=== PATIENT | female | born 1965 | race Caucasian/White ===

== ENCOUNTER 2021-10-24 10:30 | Outpatient (RCR) | payer OTHER, SELFPAY ==
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
--- NOTE | 2021-10-02 14:42 | PC.NURSE ---
case opened in treatment team
--- NOTE | 2021-10-03 14:04 | HO.PHPPROGNO ---
Subjective Subjective Date of Service: 10/03/21 Reason For Visit: Bipolar I, Depression, Anxiety Guardianship: No Medical Problems Affecting Mental Status: No Interim History: Gerda reports difficulty sleeping, some dysphoric mood. Requests medication lorazepam be changed to clonazepam. Reports loose stools this morning, upset GI. Medication Compliance: Intermittent (Taking only Depakote dose at night, not taking am dose.) Side effects from medications: Yes (unsure as to GI sx from GI virus or meds) Attending Groups: Yes Review of Systems Acute medical concerns: Yes NSTEMI reported May 2021, still awaiting follow-up visit with [employer]. Medical Review of Systems: unchanged Mental Status Exam Mental Status Exam Narrative: Well-developed, well-nourished female, in NAD. Appears stated age. Appropriately dressed for age and season. Alert and oriented x4, fully cooperative with interview. Presents with labile, anxious affect, irritable at times. Patient Appearance: Well Grooomed and Appropriate Patient Orientation: Person, Place, Time and Situation Level of Consciousness: Awake, Appropriate and Alert Patient Behavior: Appropriate, Cooperative, Anxious and Good Eye Contact Mood Description: Appropriate, Depressed and Anxious Affect Description: Appropriate, Depressed, Anxious and Labile Patient Cognition Impaired: No Ability to Follow Directions: Excellent Speech Pattern: Clear, Appropriate, Spontaneous Speech, Coherent and Rapid (rapid at times) Memory Description: Intact Hallucinations: None Delusions: Not Present Thought Process: Intact, Rumination, Goal Oriented and Linear Thought Content: positive for Intact, positive for Goal Oriented, positive for Linear and positive for Perseveration Depressive Symptoms: Increased Anxiety, Increased Irritability, Difficulty Sleeping, Crying Spells, Loss of Int. in Activity, Feelings of Worthlessness, Hopelessness, Increased Fatigue, Thoughts of /Suicide (recent passive, no intent or plan. Denies today), Unexplained Stomach Pain, Low Self Esteem and Difficulty Concentrating Judgement: Fair Assessment & Plan Assessment & Plan (1) Bipolar disorder current episode depressed: Qualifiers: Current episode severity: unspecified Qualified Code(s): F31.30 - Bipolar disorder, current episode depressed, mild or moderate severity, unspecified Status: Acute Code(s): F31.30 - Bipolar disorder, current episode depressed, mild or moderate severity, unspecified Assessment and Plan: Client reports GI upset, loose stools this a.m.. States she believes she could have a GI bug/virus, is not sure. Discussed Depakote medication, including side effects. This blog writer recommended she switch to ER form, in order to help improve any GI side effects. She is willing to do this. She has also not been taking the a.m. dose, but is willing to increase ER dose to 500 mg daily rather than 250. (2) EMBER (generalized anxiety disorder): Status: Acute Code(s): F41.1 - Generalized anxiety disorder Assessment and Plan: Client reports that she is experiencing insomnia, which in turn is causing increased anxiety. She is requesting a return to Klonopin 1 mg at bedtime rather than Ativan. We did discuss rationale for recent change to Ativan, she then stated ?at this point, I need to sleep ?. She stated that she is still experiencing some forgetfulness even with the switch to Ativan, and that she would rather have the Klonopin so that she can sleep, as the insomnia is also causing forgetfulness. We also discussed client's diagnosis in May of NSTEMI at [facility]. She reports that her [employer] is in [facility], and that a referral was sent to [facility] so that she could have further testing completed. She states that [facility] has still not scheduled an appointment, and last told her it would need to be perhaps in October. She states that she is fed up, and that she is not experiencing any type of shortness of breath, no difficulty walking. She states that she is not going to wait any longer, but just ?let it go ?. She also believes that it could possibly have been caused by COVID exposure, although [employer] has told her they do not believe that would cause an NSTEMI. Client reports that she needs to pay a co-pay for medications, even for a limited supply. Discussed providing 30 day supply of medications at this point, in order to prevent excessive co-pay at pharmacy. She is also concerned about the mmultiple medical bills she has received since going to [facility] for STEMI this past summer. She is very concerned, and states she has received bills for thousands of dollars. She is experiencing difficulty with finances at this point, and this is causing increased anxiety. Assessment and Plan: 1. D/C lorazepam and depakote. 2. Start klonopin 1mg at bedtime as needed. (script for 30 day supply sent to pharmacy). 3. Start depakote ER 500mg daily. (script for 30 day supply sent to pharmacy). 4. Client to see Dr. Jackson tomorrow. 5. Continue following as per protocol. Reason for contiued partial hosp. stay Substantial Risk for: inability to function, rapid decompensation and med/psych decompensation Certification I certify that partial hospital treatment is medically necessary due to the symptoms and problems resulting from the patient's mental illness and the failure to treat the patient at the partial hospital level of care would likely result in the patient requiring inpatient psychiatric care which could not be prevented at a less intensive level of care. I spent minutes with the patient and/or on the patient floor today, greater than?50% of which was spent counseling/coordinating care. Discharge Plan Discharge Attending provider: Kd Chilel Medications: New divalproex [Depakote ER] 500 mg tablet extended release 24 hr 500 mg PO DAILY Qty: 30 RF: 0 clonazepam [Klonopin] 1 mg tablet 1 mg PO BEDTIME PRN (Reason: anxiety, sleep) Qty: 30 RF: 0 Telehealth Telehealth Location of provider rendering services: practice address Location of patient: address on file Patient Identification confirmed using: Name, : Yes Telehealth method: video Patient verbally consented to treatment: Yes Patient verbally consented to billing insurance company: Yes Patient informed of any privacy concerns related to visit: Yes Time spent with patient (mins): 15
--- NOTE | 2021-10-03 15:11 | PC.ADMIT ---
Admission Note: 56 year old woman admit to [facility] 10/02/2021 with dx BiPolar 1, Depression and Anxiety. Patient self referred after discussion with Dr Jackson. Patient reports increased depression, increased anxiety, : very stressed Reports a lot of things have happened since Covid. Patient repoerts she has increased anger and yells and screams at family. Patient denies she would hurt anyone. Patient denies SI. Medical issues include Type 2 diabetes and fibromyalgia. Patient quit smoking 30 days ago. Patient reports difficulty sleeping. Reports she wants to back on [facility] aware and will discuss with Dr Jackson.Medications reconciled with patient, pharmacy and medical record. Patient verbalizes understanding of medications.
--- NOTE | 2021-10-04 16:33 | P.PNPSP_ITS ---
Subjective Subjective Date of Service: 10/04/21 Reason For Visit: Bipolar I, Depression, Anxiety Medical Problems Affecting Mental Status: Yes Interim History: gi sx patient restarted back on Depakote 500 mg has only into been intermittently compliant. Has not had cardiac catheterization for gated MRI. Feeling somewhat more stable Medication Compliance: Intermittent Side effects from medications: Yes Mental Status Exam Mental Status Exam Narrative: Well-developed, well-nourished female, in NAD. No involuntary mo vements noted, motor activity calm, posture within normal limits. Ambulation not observed. Patient Orientation: Person, Place, Time and Situation Level of Consciousness: Awake, Appropriate and Alert Patient Behavior: Appropriate, Cooperative and Good Eye Contact Mood Description: Appropriate (reports improved mood, more stable. ) and Apprehensive Affect Description: Appropriate and Depressed Patient Cognition Impaired: No Ability to Follow Directions: Excellent Speech Pattern: Clear, Appropriate, Spontaneous Speech and Coherent Memory Description: Intact Hallucinations: None Delusions: Not Present Thought Process: Intact, Goal Oriented and Linear Thought Content: positive for Intact, positive for Goal Oriented and positive for Linear Depressive Symptoms: Loss of Int. in Activity, Feelings of Worthlessness, Hopelessness and Difficulty Concentrating Judgement: Fair Assessment & Plan Assessment & Plan (1) Bipolar disorder current episode depressed: Qualifiers: Current episode severity: unspecified Qualified Code(s): F31.30 - Bipolar disorder, current episode depressed, mild or moderate severity, unspecified Status: Acute Code(s): F31.30 - Bipolar disorder, current episode depressed, mild or moderate severity, unspecified (2) EMBER (generalized anxiety disorder): Status: Acute Code(s): F41.1 - Generalized anxiety disorder Assessment and Plan: Rib urged continued treatment with Depakote patient has not been helped to c oulee by gabapentin for irritability mood instability monitor use of alcohol and clonazepam Patient educated on: diagnosis and medication risk/benefits Reason for contiued partial hosp. stay Substantial Risk for: rapid decompensation Certification I certify that partial hospital treatment is medically necessary due to the symptoms and problems resulting from the patient's mental illness and the failure to treat the patient at the partial hospital level of care would likely result in the patient requiring inpatient psychiatric care which could not be prevented at a less intensive level of care. I spent minutes with the patient and/or on the patient floor today, greater than?50% of which was spent counseling/coordinating care. Discharge Plan Discharge Attending provider: Kd Chilel Medications: New divalproex [Depakote ER] 500 mg tablet extended release 24 hr 500 mg PO DAILY Qty: 30 RF: 0 clonazepam [Klonopin] 1 mg tablet 1 mg PO BEDTIME PRN (Reason: anxiety, sleep) Qty: 30 RF: 0 No Action atenolol 50 mg tablet 50 mg PO DAILY RF: 0
--- NOTE | 2021-10-09 11:09 | HO.PHPPROGNO ---
Subjective Subjective Date of Service: 10/09/21 Reason For Visit: Bipolar I, Depression, Anxiety Guardianship: No Medical Problems Affecting Mental Status: No Interim History: Client reports feeling depressed today, but functioning . States that she stop taking atenolol, because it was causing her to feel dizzy and lightheaded, as well as lowering her blood pressure and pulse too much. She reports side effects have lifted since she stopped taking it. Continues utilizing Depakote ER 500 and Klonopin 1 mg at bedtime, with good effect. Reports that she feels she is becoming more active, walked over 3 miles yesterday, states that overall she feels she is doing better . Medication Compliance: Yes Side effects from medications: Yes (dizzy/lightheaded, decreased BP, p on atenolol 50mg , stopped,s/e res ) Attending Groups: Yes Review of Systems Acute medical concerns: No Medical Review of Systems: unchanged Review of Systems Review of Systems Yes all other systems are reviewed and are negative Constitutional: Reports no additional constitutional complaints Eyes: Reports no additional eye complaints Reports Normal hearing present Cardiovascular: Reports no additional cardiovascular complaints Respiratory: Reports no additional respiratory complaints Gastrointestinal: Reports no additional gastrointestinal complaints Genitourinary: Reports no additional female genitourinary complaints Musculoskeletal: Reports no additional musculoskeletal complaints Comments: reports feeling leg soreness on day one of depakote increased dose, quickly resolved. Skin/Breast: Reports as per HPI Reports Normal hearing present Comments: dizziness and lightheadedness resolved once stopped atenolol. Psychiatric: Reports no additional psychiatric complaints Endocrine: Reports no additional endocrine complaints Hematologic/Lymphatic: Reports no additional hematologic/lymphatic complaints Allergic/Immunologic: Reports no additional allergic/immunologic complaints Mental Status Exam Mental Status Exam Narrative: Well-developed, well-nourished female, in NAD. No involuntary movements noted, motor activity calm, posture within normal limits. Ambulation not observed. dressed for age and season. Alert and oriented x4. Mood: depressed. Affect: stable, no restriction or lability noted. Patient Appearance: Well Grooomed and Appropriate Patient Orientation: Person, Place, Time and Situation Level of Consciousness: Awake, Appropriate and Alert Patient Behavior: Appropriate, Cooperative and Good Eye Contact Mood Description: Appropriate and Depressed Affect Description: Appropriate and Depressed Patient Cognition Impaired: No Ability to Follow Directions: Excellent Speech Pattern: Clear, Appropriate, Spontaneous Speech and Coherent Memory Description: Intact Hallucinations: None Delusions: Not Present Thought Process: Intact, Goal Oriented and Linear Thought Content: positive for Intact, positive for Goal Oriented and positive for Linear Depressive Symptoms: Increased Irritability, Difficulty Sleeping, Loss of Int. in Activity, Feelings of Worthlessness, Hopelessness, Increased Fatigue, Thoughts of /Suicide (recent passive, no intent or plan. ), Low Self Esteem and Difficulty Concentrating Judgement: Fair Assessment & Plan Assessment & Plan (1) Bipolar disorder current episode depressed: Qualifiers: Current episode severity: unspecified Qualified Code(s): F31.30 - Bipolar disorder, current episode depressed, mild or moderate severity, unspecified Status: Acute Code(s): F31.30 - Bipolar disorder, current episode depressed, mild or moderate severity, unspecified Assessment and Plan: Client reports depressed mood, although she reports ?I am functioning ?. Reports she has stopped taking atenolol on her own, because it was making her feel dizzy, lightheaded, and her blood pressure and pulse go too low. States that when she stopped taking the medication these side effects resolved. Continues with the Depakote ER 500 mg nightly along with Klonopin 1 mg. Reports good sleep, good appetite. States that 1st day on Depakote she felt her legs were achy in week, but that quickly resolved. States that she walked over 3 miles yesterday on a hike, and feels overall she is doing better. No active thoughts of harm to self or others reported, no safety concern at this time. Labs ordered, including Depakote level, CBC, liver function panel. Client request slip be faxed to [facility] in [place]. (2) EMBER (generalized anxiety disorder): Status: Acute Code(s): F41.1 - Generalized anxiety disorder Assessment and Plan: Continues with Klonopin 1 mg, with positive affect. Assessment and Plan: 1. Continue with Depakote ER 500 mg at bedtime, and Klonopin 1 mg p.r.n. at bedtime. 2. Obtain labs, including Depakote level, liver profile, CBC. 3. Follow-up as per protocol. Patient educated on: diagnosis, medication risk/benefits and therapeutic strategies Informed Consent: understands Reason for contiued partial hosp. stay Substantial Risk for: harm to self, inability to function and med/psych decompensation Certification I certify that partial hospital treatment is medically necessary due to the symptoms and problems resulting from the patient's mental illness and the failure to treat the patient at the partial hospital level of care would likely result in the patient requiring inpatient psychiatric care which could not be prevented at a less intensive level of care. I spent minutes with the patient and/or on the patient floor today, greater than?50% of which was spent counseling/coordinating care. Discharge Plan Discharge Attending provider: Kd Chilel Medications: New divalproex [Depakote ER] 500 mg tablet extended release 24 hr 500 mg PO DAILY Qty: 30 RF: 0 clonazepam [Klonopin] 1 mg tablet 1 mg PO BEDTIME PRN (Reason: anxiety, sleep) Qty: 30 RF: 0 No Action atenolol 50 mg tablet 50 mg PO DAILY RF: 0 Telehealth Telehealth Location of provider rendering services: practice address Location of patient: address on file Patient Identification confirmed using: Name, : Yes Telehealth method: video Patient verbally consented to treatment: Yes Patient verbally consented to billing insurance company: Yes Patient informed of any privacy concerns related to visit: Yes Time spent with patient (mins): 15
--- NOTE | 2021-10-16 17:04 | HO.PHPPROGNO ---
Subjective Subjective Date of Service: 10/16/21 Reason For Visit: Bipolar I, Depression, Anxiety Guardianship: No Medical Problems Affecting Mental Status: No Interim History: Gerda reports that her mood is better today than it has been all of last week. She reports that last week she was agitated, and had a lot of things come out that were suppressed . She states that she slept well over the weekend, late on both days, as she was exhausted. She reports that she feels she is making progress in PHP. Client did ask about utilizing small amount of Klonopin 0.5 in order to help when she feels overwhelmed with anxiety and had station. Reports that she feels her memory is being affected by the Depakote, although she has no more GI upset. She states that she thinks her memory is being affected because she has felt a little scattered, forgetful at times. We discussed possibility that this could also be related to levels of anxiety and agitation. She was agreeable to remaining on Depakote 500 mg ER at this time, as overall she feels it is helpful. Medication Compliance: Yes Side effects from medications: Yes (forgetful, scattered at times) Attending Groups: Yes Review of Systems Acute medical concerns: No Medical Review of Systems: unchanged Review of Systems Review of Systems Yes all other systems are reviewed and are negative Constitutional: Reports no additional constitutional complaints Mental Status Exam Mental Status Exam Narrative: Well-developed, well-nourished female, in NAD. No involuntary movements noted, motor activity calm, posture within normal limits. Ambulation not observed. Patient Appearance: Well Grooomed and Appropriate Patient Orientation: Person, Place, Time and Situation Level of Consciousness: Awake, Appropriate and Alert Patient Behavior: Appropriate, Cooperative and Good Eye Contact Mood Description: Calm and Appropriate (reports improved mood, more stable. ) Affect Description: Appropriate and Depressed Patient Cognition Impaired: No Ability to Follow Directions: Excellent Speech Pattern: Clear, Appropriate, Spontaneous Speech and Coherent Memory Description: Intact Hallucinations: None Delusions: Not Present Thought Process: Intact, Goal Oriented and Linear Thought Content: positive for Intact, positive for Goal Oriented and positive for Linear Depressive Symptoms: Loss of Int. in Activity, Feelings of Worthlessness, Hopelessness and Difficulty Concentrating Judgement: Fair Assessment & Plan Assessment & Plan (1) Bipolar disorder current episode depressed: Qualifiers: Current episode severity: unspecified Qualified Code(s): F31.30 - Bipolar disorder, current episode depressed, mild or moderate severity, unspecified Status: Acute Code(s): F31.30 - Bipolar disorder, current episode depressed, mild or moderate severity, unspecified Assessment and Plan: Client reports mood more stable today, denies mood lability or constriction. Appears more stable during encounter. Reports medications appear to be working well, although she is concerned that the Depakote may be affecting her memory. Medication education and discussion ensued, she is willing to remain on Depakote until she sees her outpatient psych provider. (2) EMBER (generalized anxiety disorder): Status: Acute Code(s): F41.1 - Generalized anxiety disorder Assessment and Plan: Client reports she feels less anxiety today, although last week was difficult for her. Request that she be allowed to take 1/2 Klonopin, for dose of 0.5 mg, as needed occasionally when she feels overly stressed and anxious. This was discussed, as she states she has done this in the past, with positive affect. No new script needed at this time. (3) Alcohol abuse: Status: Acute Code(s): F10.10 - Alcohol abuse, uncomplicated Assessment and Plan: Client has been discussing her relationship with alcohol in [facility], and effects alcohol on mood. Assessment and Plan: 1. Client to utilize 0.5 Klonopin once daily p.r.n. as needed for increased anxiety and agitation. 2. No further medication changes at this time, client does not require any refills at this time. Patient educated on: diagnosis, medication risk/benefits, substance abuse and therapeutic strategies Informed Consent: understands Reason for contiued partial hosp. stay Substantial Risk for: inability to function and med/psych decompensation Certification I certify that partial hospital treatment is medically necessary due to the symptoms and problems resulting from the patient's mental illness and the failure to treat the patient at the partial hospital level of care would likely result in the patient requiring inpatient psychiatric care which could not be prevented at a less intensive level of care. I spent minutes with the patient and/or on the patient floor today, greater than?50% of which was spent counseling/coordinating care. Discharge Plan Discharge Attending provider: Kd Chilel Medications: New divalproex [Depakote ER] 500 mg tablet extended release 24 hr 500 mg PO DAILY Qty: 30 RF: 0 clonazepam [Klonopin] 1 mg tablet 1 mg PO BEDTIME PRN (Reason: anxiety, sleep) Qty: 30 RF: 0 No Action atenolol 50 mg tablet 50 mg PO DAILY RF: 0 Telehealth Telehealth Location of provider rendering services: practice address Location of patient: address on file Patient Identification confirmed using: Name, : Yes Telehealth method: video Patient verbally consented to treatment: Yes Patient verbally consented to billing insurance company: Yes Patient informed of any privacy concerns related to visit: Yes Time spent with patient (mins): 20
--- NOTE | 2021-10-24 14:03 | PC.NURSE ---
I called and LM for pt asking her to pls call to review discharge info.
--- NOTE | 2021-10-24 14:57 | PC.NURSE ---
Patient discharged from the program today. Reviewed patient medications with patient. Patient reports Dr Jackson put her on Atenolol and she not longer takes this medication as she stated she felt lightheaded while taking it. Patient reports wanting to take clonazepam 1 tab at HS with an additional 1/2 mg if needed daily however she stated she has not taken the dose during the day. Patient reports taking medications as prescribed. Feels ok and good regarding D/C and stated she felt the program benefited her a lot. Denied any safety issues. Jeannette to call patient to review additional d/c. Patient has an appointment with Dr Jackson on 11/02/2021 at 2:30 PM per Ellyn Celis as patient just called her.
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
--- NOTE | 2021-10-27 21:26 | HO.PHPPROGNO ---
Subjective Subjective Date of Service: 10/24/21 Reason For Visit: Bipolar I, Depression, Anxiety Interim History: I evaluated the pt this morning and upon interview she reports I stopped the atenolol, says she took this for anxiety, but felt lightheaded. Has been off it one week and denies adverse effects, I feel fine. Says she is still interested in obtaining klonopin 0.5 mg QD PRN for anxiety, which she does not anticipate needing but says she has discussed this with her OP psychiatrist. Says her sleep has been good. Initially on depakote she felt she was having memory issues but now says its not as bad now that im acclimated on it and i'm functioning?a lot better mentally. Denies GI SE, as she reports the ER formulation of depakote has helped with this SE. She denies SI/SIB/HI upon inquiry and says she feels stable on her med regimen. Medication Compliance: Yes Side effects from medications: No Attending Groups: Yes Review of Systems Acute medical concerns: No Medical Review of Systems: unchanged Mental Status Exam Mental Status Exam Narrative: Well-developed, well-nourished female, in NAD. No involuntary movements noted, motor activity calm, posture within normal limits.? Ambulation not observed. ? Patient Appearance:?Well Groomed and Appropriate Patient Orientation:?Person, Place, Time and Situation Level of Consciousness:?Awake, Appropriate and Alert Patient Behavior:?Appropriate, Cooperative and Good Eye Contact Mood Description:?Calm and Appropriate (reports improved mood, more stable. ) Affect Description:?Appropriate and Depressed Patient Cognition Impaired:?No Ability to Follow Directions:?Excellent Speech Pattern:?Clear, Appropriate, Spontaneous Speech and Coherent Memory Description:?Intact Hallucinations:?None Delusions:?Not Present Thought Process:?Intact, Goal Oriented and Linear Thought Content:?positive for Intact, positive for Goal Oriented and positive for Linear Depressive Symptoms:?Loss of Int. in Activity, Feelings of Worthlessness, Hopelessness and Difficulty Concentrating Judgment:?Fair Assessment & Plan Assessment & Plan (1) EMBER (generalized anxiety disorder): Status: Acute Code(s): F41.1 - Generalized anxiety disorder Assessment and Plan: Denies anxiety today, although continues to advocate for 0.5 mg Klonopin QD PRN on rare occassion when she feels overly stressed and anxious, as she states she has done this in the past, with positive affect.?Will provide script for this, as she has discussed this with her OP psychiatrist. (2) Alcohol abuse: Status: Acute Code(s): F10.10 - Alcohol abuse, uncomplicated Assessment and Plan: Client has been discussing her relationship with alcohol in [facility], and effects alcohol on mood. No concerns with drinking bx at this time. (3) Bipolar disorder current episode depressed: Qualifiers: Current episode severity: unspecified Qualified Code(s): F31.30 - Bipolar disorder, current episode depressed, mild or moderate severity, unspecified Status: Acute Code(s): F31.30 - Bipolar disorder, current episode depressed, mild or moderate severity, unspecified Assessment and Plan: Client reports mood stability on current med regimen. Denies SE or adverse effects. Says she no longer thinks the Depakote is affecting her memory.? Will f/u with outpatient psych provider. Assessment and Plan: 1. Client will utilize 0.5 Klonopin once daily p.r.n. as needed for increased anxiety and agitation. 2. No further medication changes at this time, will send 90 day refills at this time. 3. Stable for discharge and will follow up with Op psychiatrist Certification I certify that partial hospital treatment is medically necessary due to the symptoms and problems resulting from the patient's mental illness and the failure to treat the patient at the partial hospital level of care would likely result in the patient requiring inpatient psychiatric care which could not be prevented at a less intensive level of care. I spent minutes with the patient and/or on the patient floor today, greater than?50% of which was spent counseling/coordinating care. Discharge Plan Discharge Attending provider: Kd Chilel Additional Instructions: Appointment with Rigo Jackson MD, pt's med provider, on 11/02/21, at 2:30pm. Pt reports she has registered with [facility] for individual therapy, and reports she is only able to make an appointment the day of the session, not in advance. She has identified a psychologist that she will be seeing. She declined a referral for another therapist, stating her daughter highly recommends the [facility] system. Pt was given information about 12 step recovery meetings, as well as other resources for addiction abstinence, including [facility] [employer]. Medications: New clonazepam [Klonopin] 0.5 mg tablet 0.5 mg PO DAILY PRN (Reason: anxiety) 90 Days Qty: 14 RF: 0 Continued clonazepam [Klonopin] 1 mg tablet 1 mg PO BEDTIME PRN (Reason: anxiety, sleep) 90 Days Qty: 90 RF: 0 Changed divalproex [Depakote ER] 500 mg tablet extended release 24 hr 500 mg PO BEDTIME 90 Days Qty: 90 RF: 0 Discontinued atenolol 50 mg tablet 50 mg PO DAILY RF: 0 Stand Alone Forms: Patient Portal Discharge page
== END 2021-10-25 07:27 | disposition home or self-care (01) ==
LOC: HO.PHPA 10:30
PROVIDERS: Visit Provider Psychiatry & Neurology Psychiatry
DX: F41.1 Generalized anxiety disorder (principal); F31.30 Bipolar disorder, current episode depressed, mild or moderate severity, unspecified; F10.10 Alcohol abuse, uncomplicated; Z79.899 Other long term (current) drug therapy
CPT/HCPCS: 90791; 90853

== ENCOUNTER → 2022-09-05 10:28 | Outpatient (BNVA) | payer OTHER, SELFPAY | PROVIDERS: PCP Family Medicine; Visit Provider Psychiatry & Neurology Psychiatry | DX: F41.1 Generalized anxiety disorder (principal); F31.30 Bipolar disorder, current episode depressed, mild or moderate severity, unspecified; F43.10 Post-traumatic stress disorder, unspecified | CPT/HCPCS: 90833 ==

== ENCOUNTER → 2022-09-26 10:20 | Outpatient (BNVA) | payer OTHER, SELFPAY | PROVIDERS: PCP Family Medicine; Visit Provider Psychiatry & Neurology Psychiatry | DX: F43.10 Post-traumatic stress disorder, unspecified (principal); F41.1 Generalized anxiety disorder; F31.30 Bipolar disorder, current episode depressed, mild or moderate severity, unspecified | CPT/HCPCS: 90833 ==

== ENCOUNTER → 2022-10-30 15:37 | Outpatient (BNVA) | payer OTHER, SELFPAY | PROVIDERS: PCP Family Medicine; Visit Provider Psychiatry & Neurology Psychiatry | DX: F41.1 Generalized anxiety disorder (principal) ==

== ENCOUNTER → 2023-01-07 12:52 | Outpatient (BNVA) | payer OTHER, SELFPAY | PROVIDERS: PCP Family Medicine; Visit Provider Psychiatry & Neurology Psychiatry | DX: Z13.89 Encounter for screening for other disorder (principal) ==

== ENCOUNTER → 2023-05-01 11:41 | Outpatient (BNVA) | payer OTHER, SELFPAY | PROVIDERS: PCP Family Medicine; Visit Provider Psychiatry & Neurology Psychiatry ==

== ENCOUNTER 2023-07-22 12:06 | Outpatient (AMB) | payer MEDICARE, OTHER, SELFPAY ==
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
== END 2023-07-22 12:06 | disposition home or self-care (01) ==
LOC: HO.HOP 12:06
PROVIDERS: PCP Family Medicine; Visit Provider Psychiatry & Neurology Psychiatry
DX: F43.10 Post-traumatic stress disorder, unspecified (principal); F41.1 Generalized anxiety disorder
CPT/HCPCS: 99213

== ENCOUNTER → 2023-07-22 12:06 | Outpatient (BNVA) | payer OTHER, SELFPAY | PROVIDERS: PCP Family Medicine; Visit Provider Psychiatry & Neurology Psychiatry ==

== ENCOUNTER 2023-09-18 17:20 | Outpatient (AMB) | payer MEDICARE, OTHER, SELFPAY ==
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
== END 2023-09-18 17:20 | disposition home or self-care (01) ==
LOC: HO.HOP 17:20
PROVIDERS: PCP Family Medicine; Visit Provider Psychiatry & Neurology Psychiatry
DX: F34.0 Cyclothymic disorder (principal); F41.1 Generalized anxiety disorder; F43.10 Post-traumatic stress disorder, unspecified
CPT/HCPCS: 90833; 99213

== ENCOUNTER → 2023-09-18 17:20 | Outpatient (BNVA) | payer OTHER, SELFPAY | PROVIDERS: PCP Family Medicine; Visit Provider Psychiatry & Neurology Psychiatry ==

== ENCOUNTER 2023-11-18 08:50 | Outpatient (AMB) | payer MEDICARE, OTHER, MEDICAID, SELFPAY ==
--- NOTE | 2023-11-18 08:54 | MHC.OFFVIS ---
Intake Vital Signs 11/18/23 08:56 Height 5 ft 9.5 in Weight 172 lb BMI 25.0 BP 135/74 Blood Pressure Location Rt brachial Position Sitting Pulse 62 Pulse Oximetry (%) 99 Oxygen Delivery Method Room Air Intake Visit Reasons: Colonoscopy Screening Intake Note: This patient presents for an assessment for colonoscopy screening. Patient c/o; reports acid reflux for the past week, reports eating bland food for the past weeks, reports no rectal bleeding, reports occasional constipation. Phys Assistant Required: No Accompanied by: Self / Same As Patient Allergies acetaminophen [From Percocet] Allergy (Verified 11/18/23 08:59) Difficulty Breathing bisacodyl [From PEG-Prep] Allergy (Verified 11/18/23 08:59) Anaphylaxis Gadolinium-Containing Contrast Medi Allergy (Verified 11/18/23 08:59) Difficulty Breathing lamotrigine [From Lamictal] Allergy (Verified 11/18/23 08:59) Rash moxifloxacin [From Avelox] Allergy (Verified 11/18/23 08:59) Diarrhea oxycodone [From Percocet] Allergy (Verified 11/18/23 08:59) Difficulty Breathing polyethylene glycol 3350 [From PEG-Prep] Allergy (Verified 11/18/23 08:59) Anaphylaxis potassium chloride [From PEG-Prep] Allergy (Verified 11/18/23 08:59) Anaphylaxis propoxyphene [From Darvocet-N] Allergy (Verified 11/18/23 08:59) Difficulty Breathing sodium bicarbonate [From PEG-Prep] Allergy (Verified 11/18/23 08:59) Anaphylaxis sodium chloride [From PEG-Prep] Allergy (Verified 11/18/23 08:59) Anaphylaxis Sulfa (Sulfonamide Antibiotics) Allergy (Verified 11/18/23 08:59) Hives sulfamethoxazole [From Bactrim] Allergy (Verified 11/18/23 08:59) Hives trimethoprim [From Bactrim] Allergy (Verified 11/18/23 08:59) Hives fluticasone [From Advair Diskus] Adverse Reaction (Verified 11/18/23 08:59) Vaginal Yeast Infections salmeterol [From Advair Diskus] Adverse Reaction (Verified 11/18/23 08:59) Vaginal Yeast Infections HPI Colonoscopy Screening HPI Details 58 year old? female here today for pre colonoscopy screening.? Patient was sent to us by his PCP.? ?This is her first colonoscopy screening. ??Patient denies any gastrointestinal symptoms in the past or at present.? However patient reports that in the last year her acid reflux symptoms has gotten worse. Patient is not on any PPI. Patient reports occasional dyspepsia without dysphagia or odynophagia. Patient takes probiotic and if she stops taking she will be constipated. Denies any personal or family history of gastrointestinal disease, colon polyps, or cancer.? Denies history of difficulty with sedation or anesthesia in the past.? Negative for history of sleep apnea, however patient is awaiting to go for sleep study test.? Denies any history of cardiac, renal, pulmonary, or hepatic disease.?? No history of infectious ?diseases like hepatitis A, B, C, HIV or tuberculosis.? Patient is on low-dose aspirin [facility] Medical History (Updated 03/26/23 @ 16:41 by Rigo Jackson MD) Cyclothymia Shingles SVT (supraventricular tachycardia) Arthralgia Glaucoma suspect HTN (hypertension) Prolactinoma Colitis Asthma Surgical History H/O cervical discectomy H/O cone biopsy of cervix Family History (Updated 11/18/23 @ 09:04 by SHWETA Heard) Mother Ovarian cancer Maternal Aunt Breast cancer Throat cancer Maternal Uncle Lung cancer Social History (Updated 11/18/23 @ 09:02 by SHWETA Heard) Household Members: Family Alcohol intake: current Alcohol type: wine Patient Tobacco Use Status: Former Tobacco user Tobacco use type: Cigarette Review of Systems Const Denies weight gain and Denies weight loss ENT Reports no additional complaints, Denies dysphagia and Denies odynophagia Card Reports no additional complaints Resp Reports no additional complaints GI Denies abdominal pain, Denies belching, Denies melena, Denies bloating, Denies change in bowel habits, Denies dysphagia, Denies excessive flatus, Denies dyspepsia, Reports heartburn, Denies diarrhea, Denies loose stools, Denies nausea, Denies odynophagia and Denies vomiting Reports no additional complaints Musc Reports no additional complaints Neuro Reports no additional complaints Psych Reports no additional complaints Endo Reports no additional complaints Physical Exam Vital Signs: Last Vital Signs Pulse 62 11/18/23 08:56 BP 135/74 11/18/23 08:56 Pulse Ox 99 11/18/23 08:56 Oxygen Delivery Method Room Air 11/18/23 08:56 BMI result Body Mass Index 25.0 Const General: healthy appearing, no acute distress and well developed Nutritional Appearance: well nourished Orientation/consciousness: patient oriented x3 HEENT Head: Yes normal to inspection, Yes normocephalic and Yes atraumatic Face and sinus: Yes normal facial exam Mouth: Normal oral and palatal mucosa present Throat: Yes posterior oropharynx normal, Yes tonsils normal and Yes uvula midline Eyes General: appearance normal, both eyes and all related structures Neck Neck: Yes normal visual inspection, Yes full ROM and Yes trachea midline Thyroid: Thyroid normal Resp Effort & Inspection: normal respiratory effort, able to speak in complete sentences, no tracheal deviation and symmetric chest movement Auscultation: clear to auscultation bilaterally Cardio Rate: regular rate GI Inspection: Yes normal to inspection and No distended Palpation (GI): Soft to palpation, not firm, nontender and No hepatosplenomegaly present Auscultation: normal bowel sounds General: Yes no CVA tenderness Back/Spine/Pelvis Back: no CVA tenderness Skin General skin exam: elasticity normal, turgor normal and dry skin Neuro General: patient oriented x3 Psych Appearance: grossly normal Mental Status: mental status grossly normal Assessment & Plan Assessment & Plan (1) Screen for colon cancer: Code(s): Z12.11 - Encounter for screening for malignant neoplasm of colon (2) GERD (gastroesophageal reflux disease): Code(s): K21.9 - Gastro-esophageal reflux disease without esophagitis Qualifiers: Esophagitis presence: esophagitis presence not specified Qualified Code(s): K21.9 - Gastro-esophageal reflux disease without esophagitis Plan Patient denies any cardiac or respiratory symptoms.? Reports symptoms of acid reflux, dyspepsia without dysphagia or odynophagia. Will start patient on pantoprazole. Will send patient for upper endoscopy. Denies any issues with anesthesia in the past.? Denies any history of sleep apnea.? No history infectious diseases in the past or present.? Patient is on low-dose aspirin. No family or personal history of colon cancer or polyps.? Patient denies melena, hematochezia, unintentional weight loss or ribbon like stools.? Discussed at length the pre-procedure,? prep, diet & medications as well as what to expect prior, during and after the procedure.?? Stressed the importance of good bowel prep. ?Recommended the use of Vaseline or Calmoseptine OTC & baby wipes with bowel movements to promote comfort.? ?Patient verbalizes understanding and agrees to plan of care.? She was given the opportunity to ask questions and all questions answered.? We will see her after the procedure.? Medications: New bisacodyl (Dulcolax (bisacodyl)) Start taking 2 tablet every night 7 days before the procedure and 1 day before procedure take 4 tablets at noon time followed by MiraLax prep 10 mg (2 x 5 mg) PO BEDTIME 16 tabs 0RF constipation Z12.11 - Encounter for screening for malignant neoplasm of colon pantoprazole take one tablet half an hour before breakfast 40 mg PO DAILY 30 tabs 2RF K21.9 - Gastro-esophageal reflux disease without esophagitis Coding Level of Care Code New Pt Level 3 (15113) Diagnoses Screen for colon cancer Z12.11 Gastroesophageal reflux disease, unspecified whether esophagitis present K21.9 Esophagitis presence: esophagitis presence not specified Time Spent (min) 40 Comment 30 minutes spent with patient and additional 10 minutes spent reviewing her records
[2023-11-18 08:56] VITALS: BP 135/74; PULSE 62; O2SAT 99; BMI 25.0
== END 2023-11-18 09:44 | disposition home or self-care (01) ==
PROVIDERS: PCP Family Medicine; Visit Provider Nurse Practitioner Family
DX: Z01.818 Encounter for other preprocedural examination (principal); Z12.11 Encounter for screening for malignant neoplasm of colon; K21.9 Gastro-esophageal reflux disease without esophagitis
CPT/HCPCS: S0285

== ENCOUNTER → 2023-11-18 08:50 | Outpatient (BNVA) | payer OTHER, SELFPAY | PROVIDERS: PCP Family Medicine; Visit Provider Nurse Practitioner Family ==

== ENCOUNTER 2023-12-23 17:49 | Outpatient (AMB) | payer MEDICARE, OTHER, MEDICAID, SELFPAY ==
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
== END 2023-12-23 17:49 | disposition home or self-care (01) ==
LOC: HO.HOP 17:49
PROVIDERS: PCP Family Medicine; Visit Provider Psychiatry & Neurology Psychiatry
DX: F43.11 Post-traumatic stress disorder, acute (principal); F41.1 Generalized anxiety disorder; F34.0 Cyclothymic disorder
CPT/HCPCS: 99213

== ENCOUNTER → 2023-12-23 17:49 | Outpatient (BNVA) | payer MEDICARE, OTHER, MEDICAID, SELFPAY | PROVIDERS: PCP Family Medicine; Visit Provider Psychiatry & Neurology Psychiatry ==

== ENCOUNTER 2024-03-03 14:15 | Outpatient (AMB) | payer MEDICARE, OTHER, SELFPAY ==
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
== END 2024-03-03 14:15 | disposition home or self-care (01) ==
LOC: HO.HOP 14:15
PROVIDERS: PCP Family Medicine; Visit Provider Psychiatry & Neurology Psychiatry
DX: F34.0 Cyclothymic disorder (principal); F43.10 Post-traumatic stress disorder, unspecified; F41.1 Generalized anxiety disorder
CPT/HCPCS: 90833; 99213

== ENCOUNTER → 2024-03-03 14:15 | Outpatient (BNVA) | payer MEDICARE, OTHER, SELFPAY | PROVIDERS: PCP Family Medicine; Visit Provider Psychiatry & Neurology Psychiatry | DX: F34.0 Cyclothymic disorder (principal); F43.10 Post-traumatic stress disorder, unspecified; F41.1 Generalized anxiety disorder | CPT/HCPCS: 99212 ==

== ENCOUNTER 2024-05-04 10:59 | Outpatient (AMB) | payer MEDICARE, OTHER, SELFPAY ==
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
== END 2024-05-04 11:48 | disposition home or self-care (01) ==
LOC: HO.HOP 10:59
PROVIDERS: PCP Family Medicine; Visit Provider Psychiatry & Neurology Psychiatry
DX: F34.0 Cyclothymic disorder (principal); F43.10 Post-traumatic stress disorder, unspecified; F41.1 Generalized anxiety disorder; F41.0 Panic disorder [episodic paroxysmal anxiety]; F43.0 Acute stress reaction
CPT/HCPCS: 90833; 99213

== ENCOUNTER → 2024-05-04 10:59 | Outpatient (BNVA) | payer MEDICARE, OTHER, SELFPAY | PROVIDERS: PCP Family Medicine; Visit Provider Psychiatry & Neurology Psychiatry | DX: F34.0 Cyclothymic disorder (principal); F43.10 Post-traumatic stress disorder, unspecified; F41.1 Generalized anxiety disorder; F41.0 Panic disorder [episodic paroxysmal anxiety]; F43.0 Acute stress reaction; Z79.899 Other long term (current) drug therapy | CPT/HCPCS: 99212 ==

== ENCOUNTER 2024-06-17 17:33 | Outpatient (AMB) | payer MEDICARE, OTHER, SELFPAY ==
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
== END 2024-06-17 17:33 | disposition home or self-care (01) ==
LOC: HO.HOP 17:33
PROVIDERS: PCP Family Medicine; Visit Provider Psychiatry & Neurology Psychiatry
DX: F34.0 Cyclothymic disorder (principal); F43.10 Post-traumatic stress disorder, unspecified; F41.1 Generalized anxiety disorder; F41.0 Panic disorder [episodic paroxysmal anxiety]; F43.0 Acute stress reaction
CPT/HCPCS: 90833; 99213

== ENCOUNTER → 2024-06-17 17:33 | Outpatient (BNVA) | payer MEDICARE, OTHER, SELFPAY | PROVIDERS: PCP Family Medicine; Visit Provider Psychiatry & Neurology Psychiatry ==

== ENCOUNTER 2025-01-13 14:04 | Outpatient (AMB) | payer MEDICARE, OTHER, SELFPAY ==
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
--- OUTSIDE RECORDS SUMMARY | 2025-01-13 16:55 | XMS_ITS | Clinical Summary ---
Author Organization [address] Address [address] [place] [phone] Phone Care Team Providers Care Bridge Painter Helper Name Role Phone Theresa Guzman MD Primary Care Provider [phone] Allergies Active Allergy Reactions Criticality Noted Date Comments Fluticasone Propion-Salmeterol Shortness Of Breath High 08/01/2020 Yeast infection Iodinated Contrast Media Shortness Of Breath High 08/05/2012 UNSPECIFIED Contrast Media - PHS Allergy Remediation UNSPECIFIED Contrast Media - difficulty breathing Lamotrigine Rash Low 04/30/2016 Latex, Natural Rubber Rash Low 08/05/2012 Moxifloxacin Diarrhea Low 08/01/2020 Oxycodone-Acetaminophe n Shortness Of Breath High 04/30/2016 Propoxyphene N-Acetaminophen Shortness Of Breath High 04/30/2016 Sulfa (Sulfonamide Antibiotics) Hives High 04/30/2016 Sulfate Ion Anaphylaxis High 05/30/2021 Medications albuterol sulfate 90 mcg/actuation HFA aerosol inhaler Inhale 2 puffs into the lungs every 4 (four) hours as needed for wheezing. 6.7 g 05/30/2021 Active atenoloL (TENORMIN) 50 mg tablet Take 50 mg by mouth daily. 12/06/2020 Active cetirizine (ZYRTEC) 10 mg tablet Take 10 mg by mouth daily as needed. Active cholecalciferol, vitamin D3, 25 mcg (1,000 unit) tablet Take 1,000 Units by mouth daily. Active cinnamon bark 500 mg capsule Take 1,000 mg by mouth 2 (two) times daily. Active divalproex (DEPAKOTE DR) 250 mg delayed release tablet Take 500 mg by mouth nightly. 05/04/2021 Active fluticasone propionate (FLOVENT HFA) 44 mcg/actuation inhaler Inhale 1 puff into the lungs as needed. 07/29/2020 Active gabapentin (NEURONTIN) 100 mg capsule Take 100 mg by mouth 3 (three) times daily. 04/28/2021 Active lisinopriL (PRINIVIL,ZESTRI L) 10 mg tablet Take 30 mg by mouth daily. 11/24/2020 Active ascorbic acid, vitamin C, (VITAMIN C) 250 mg tablet Take 250 mg by mouth daily. Active tiotropium (SPIRIVA WITH HANDIHALER) 18 mcg capsule for inhalation Inhale 18 mcg into the lungs daily. Active aspirin 81 mg EC delayed release tablet Take 1 tablet (81 mg total) by mouth daily. 30 tablet 06/01/2021 Active Active Problems Problem Noted Date Diagnosed Date Chest pain 05/31/2021 Acute coronary syndrome (HC Code) (HC CODE) 05/12 IV infiltrate 05/31/2021 Close exposure to COVID-19 virus 05/31/2021 Family History Medical History Relation Name Comments Heart disease Father Heart disease Mother Ovarian cancer Mother Relation Name Status Comments Father Mother Social History Tobacco Use Types Packs/Day Years Used Date Smoking Tobacco: Former Cigarettes 1 15 0 04/30/1978 - 04/30/1993 Smokeless Tobacco: Never Alcohol Use Standard Drinks/Week Comments Yes 7 (1 standard drink = 0.6 oz pur e alcohol) Comments Unknown Sex and Gender Information Value Date Recorded Sex Assigned at Not on file Legal Sex Female 5:51 PM EST Gender Identity Not on file Sexual Orientation Not on file Last Filed Vital Signs Vital Sign Reading Time Taken Comments Blood Pressure 150/88 05/31/2021 9:58 AM EDT Pulse 84 05/31/2021 9:58 AM EDT Temperature 36.5 ??C (97.7 ??F) 05/31/2021 6:09 AM ED T Respiratory Rate 18 05/31/2021 6:09 AM EDT Oxygen Saturation 99% 05/31/2021 6:09 AM EDT Inhaled Oxygen Concentration - - Weight 67.7 kg (149 lb 4 oz) 05/31/2021 2:45 AM EDT Height 177.8 cm (5' 10 ) 05/31/2021 2:45 AM EDT Body Mass Index 21.42 05/31/2021 2:45 AM EDT Plan of Treatment Health Maintenance Due Date Last Done Comments HIV screening 02/27/1976 Hepatitis C screening 1981 Tetanus adult (Td q 10,TDAP once) 1983 Cervical cancer screening 02/27/1984 Breast cancer screening 2003 Lipid disorder screening 2003 Colon cancer screening, Colonoscopy 02/27/2008 Shingles vaccine (Shingrix) (1 of 2 - Shingrix (RZV) 2 Dose Standard Series) 2013 Diabetes screening 05/31/2024 05/31/2021, 05/30/2021 Influenza vaccine 06/11/2024 11/11/2011 Covid-19 vaccine series ( - 2023- season) 2024 Pneumococcal Vaccine (50+ years) (2 of 2 - PCV) 02/27/2028 11/11/1996 RSV Discussion (1 - 1-dose 7 5+ series) 2038 Meningococcal Vaccine Aged Out No emani russell eligible based on patient's age to complete this topic Pneumococcal Vaccine (2 - 49 years) Aged Out 11/11/1996 No longer eligible b ased on patient's age to complete this topic Procedures Procedure Name Priority Date/Time Associated Diagnosis Comments BASIC METABOLIC PANEL Routine 05/31/2021 5:44 AM EDT from Last 3 Months or Most Recently Relevant to Health Maintenance Results * (ABNORMAL) Basic metabolic panel (05/31/2021 5:44 AM EDT) Glucose 110 65 - 110 mg/dL 05/31/2021 7:31 AM [facility] Comment: Non-fasting: ??65-110 mg/dL Fasting (minimum 6 hrs): ??65-99 mg/dL BUN 14 7 - 18 mg/dL 05/31/2021 7:31 AM [facility] Creatinine 0.54(L) 0.55 - 1.02 mg/dL 05/31/2021 7:31 AM [facility] eGFR (-[place]) >60 >60 mL/min/1. 73m2 05/31/2021 7:31 AM [facility] eGFR (NON -[place]) >60 >60 mL/min/1. 73m2 05/31/2021 7:31 AM [facility] Comment: (NOTE) ? These are estimated GFR values resulting from ? utilization of a calculation incorporating ? the best data available for input, but all ? assumptions may not be correct in every ? case. ??In addition, there are several ? situations (elderly over 70 years, , ? serious co morbidities, extremes ? of body size or nutritional status) which ? could contribute to a misleading result. ? Therefore, clinical correlation is advised ? to prevent arriving at an erroneous ? conclusion based solely on the calculation ? utilized. Sodium 142 136 - 145 mmol/L 05/31/2021 7:31 AM [facility] Potassium 3.7 3.5 - 5.1 mmol/L 05/31/2021 7:31 AM [facility] Chloride 109(H) 98 - 107 mmol/L 05/31/2021 7:31 AM [facility] CO2 27 21 - 32 mmol/L 05/31/2021 7:31 AM [facility] Anion Gap 6 5 - 15 mmol/L 05/31/2021 7:31 AM [facility] Calcium 8.4(L) 8.5 - 10.1 mg/dL 05/31/2021 7:31 AM [facility] Blood Venipuncture / Unknown 05/31/2021 5:44 AM EDT 05/31/2021 6:37 AM EDT us Marco Jones MD LAB BLOOD [place]AB[place] [address], [facility] [phone] from Last 3 Months or Most Recently Relevant to Health Maintenance Insurance [facility] MEDICARE [facility] MEDICARE [facility] MEDICARE Advance Directives * Full ACLS (Latest Code Status on File) Date Activated Date Inactivated Comments 05/31/2021 2:44 AM 05/31/2021 3:27 PM Question Answer Comments With Whom was the Code Status Discussed? Patient Care Teams Bridge Painter Helper Relationship Specialty Start Date End Date Theresa Guzman MD [address] [place] [phone] PCP - General Family Medicine 05/30/21
--- OUTSIDE RECORDS SUMMARY | 2025-01-13 16:55 | XMS_ITS | Clinical Summary ---
Author Organization [facility] Address [address] [place] [address] Care Team Providers Care Spine Nurse Name Role Phone Theresa Guzman MD Primary Care Provider + Social History Tobacco Use Types Packs/Day Years Used Date Smoking Tobacco: Never Assessed Sex and Gender Information Value Date Recorded Sex Assigned at Not on file Gender Identity Not on file Sexual Orientation Not on file Plan of Treatment Upcoming Encounters Date Type Department Care Team (Late st Contact Info) Description 02/25/2025 10:00 AM EDT Clinical Support [facility] [address], [place] [phone] Kraig Stark MD [address] [place] [address] [phone] Peg Cid Au.D [address] [place] [address] [phone] Health Maintenance Due Date Last Done Comments Hepatitis C Virus Screening 1963 HIV Screening 02/27/1976 DTaP/Tdap/Td Vaccines (1 - Tdap) 1982 Pap Smear (Ages 21-65) 02/27/1984 Mammogram 2003 Colonoscopy 02/27/2008 Pneumococcal Vaccines 50+ (1 of 1 - PCV) 2013 Zoster (Shingles) Vaccine (1 of 2) 2013 Influenza Vaccine 06/11/2024 COVID-19 Vaccine ( - 2023-2 5 season) 2024 RSV Vaccine 60 years and old er and Patients (1 - 1-dose 75+ series) 2038 Hepatitis B Vaccines Aged Out No long er eligible based on patient's age to complete this topic Care Teams Spine Nurse Relationship Specialty Start Date End Date Theresa Guzman MD [address] [place] [id number] PCP - General Family Medicine 09/15/21
== END 2025-01-13 14:04 | disposition home or self-care (01) ==
LOC: HO.HOP 14:04
PROVIDERS: PCP Family Medicine; Visit Provider Psychiatry & Neurology Psychiatry
DX: F34.0 Cyclothymic disorder (principal); F41.1 Generalized anxiety disorder
CPT/HCPCS: 99214

== ENCOUNTER 2025-05-31 15:41 | Outpatient (AMB) | payer MEDICARE, OTHER, SELFPAY ==
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
--- OUTSIDE RECORDS SUMMARY | 2025-05-31 16:09 | XMS_ITS ---
Author Name [facility] Organization Unknown Care Team Organization Name Specialty Phone Email Start Date End [facility] CELIA DELATORRE Primary Care 12/01/2024
--- OUTSIDE RECORDS SUMMARY | 2025-05-31 16:09 | XMS_ITS | Encounter Summary ---
Author Organization [facility] Address [address] [place] [address] [place] [address] Phone Care Team Providers Care Automotive Collision Repair Instructor Name Role Phone Theresa Guzman MD Primary Care Provider + Meño Jeffers MD Unavailable [phone] Diya Munguia MD Unavailable Anup Zavaleta DO Unavailable Lisandro Marvin MD Unavailable Musa Rivera MD Unavailable [phone] Erwin Stafford NP Unavailable [phone] Theresa Guzman MD Unavailable Aram Kerr MD Unavailable Marlon Ramirez MD Unavailable [phone] Deven Valentine DO Primary Care Provider Deven Valentine DO Unavailable [phone] Encounter Details Date Type Department Care Team (Late st Contact Info) Description 03/28/2021 Procedure Pass [facility] Admitting Dept Virtual Department [address] [place] [address] Social History Tobacco Use Types Packs/Day Years Used Date Smoking Tobacco: Former Smokeless Tobacco: Never Comments:quit 25 years ago Comments No Sex and Gender Information Value Date Recorded Sex Assigned at Choose not to disclose 02/2023 8:36 AM EDT Legal Sex Female 4:49 PM EST Gender Identity Choose not to disclose 8:36 AM EDT Sexual Orientation Choose not to disclose 2021 11:26 AM EDT Sexual Orientation Straight 08/09/2022 11 :26 AM EDT documented as of this encounter Plan of Treatment Upcoming Encounters Date Type Department Care Team (Late st Contact Info) Description 04/28/2025 Procedure Pass [facility] - [address] [place] [address] 07/16/2025 10:40 AM EDT Telemedicine [facility] at [address] [place] [address] [address] [place] [address] Barbara Rockwell MD [address] [place] [address] [address] [place] [address] [email or web address] 09/01/2025 1:00 PM EDT Office Visit [facility] [address] [place] [address] [address] [place] [address] Pascale Marques MD [address] [place] [address] [email or web address] 09/28/2025 8:00 AM EST Office Visit [facility] [address] [place] [address] [place] [address] Deven Valentine DO [address] [place] [address], 2nd [place] [address] 10/12/2025 7:40 AM EST Office Visit [facility] [address] 3rd Floor, [address] [place] [address] Que Flores MD [address] [facility], [address] [place] [address] 11/26/2025 10:30 AM EST Appointment [address] [place] [address] Sridhar Chase MD 22 [facility], [address] [place] [address] [email or web address] documented as of this encounter Visit Diagnoses Not on filedocumented in this encounter Additional Health Concerns Infection Onset Date Last Indicated Resolved Time CoV-Risk 12/22/2024 12/22/2024 12/22/2024 2:11 PM EST COVID-19 12/22/2024 12/22/2024 01/12/2025 1:23 AM EST documented as of this encounter Care Teams Automotive Collision Repair Instructor Relationship Specialty Start Date End Date Theresa Guzman MD [address] [place] [address] PCP - General 05/11/14 04/15/22 Deven Valentine DO [address] [place] [address], 2nd [place] [address] PCP - General Internal Medicine 04/16/22 Meño Jeffers MD [address] [place] [address] 1st Floor [address] [place] [address] Historical LMR Provider 08/31/17 1 2 Diya Munguia MD [address] [place] [address] Historical LMR Provider 08/31/17 2 Anup Zavaleta DO 22 [facility] [address] [place] [address] Historical LMR Provider 08/31/17 11/18/21 Lisandro Marvin MD [address] [place] [address] Historical LMR Provider 08/31/17 Musa Rivera MD [address] [place] [address] Historical LMR Provider 08/31/17 2 Erwin Stafford NP [address] [place] [address] [address] [place] [phone] Historical LMR Provider 08/31/17 2 Theresa Guzman MD [address] [place] [address] Historical LMR Provider 08/31/17 Aram Kerr MD 22 [facility], [address] [place] [address] Historical LMR Provider 08/31/17 11/18/21 Marlon Ramirez MD [address] [place] [phone] Historical LMR Provider 08/31/17 2 Deven Valentine DO [address] [place] [address], 2nd [place] [address] [email or web address] Insurance Assigned Provider 02/14/25 documented as of this encounter Additional Source Comments The information contained in this document represents components of the legal health record. It is not the complete legal health record.[facility]
--- OUTSIDE RECORDS SUMMARY | 2025-05-31 16:09 | XMS_ITS | Clinical Summary ---
Author Organization [address] Address [address] [place] [phone] Phone Care Team Providers Care Field Control Inspector Name Role Phone Theresa Guzman MD Primary Care Provider [phone] Allergies Active Allergy Reactions Criticality Noted Date [...] pain 05/31/2021 Acute coronary syndrome (HC Code) 05/31/2021 IV infiltrate 05/31/2021 Close exposure to COVID-19 [...] 84 05/31/2021 9:58 AM EDT Temperature 36.5 C (97.7 F) 05/31/2021 6:09 AM EDT Respiratory Rate 18 05/31/2021 6:09 AM EDT [...] screening 2003 Colon cancer screening, Colonoscopy 02/27/2008 Pneumococcal Vaccine (50+ years) (2 of 2 - PCV) 2013 11/11/1996 Shingles vaccine (Shingrix) (1 of 2 - Shingrix (RZV) 2 Dose Standard Series) 2013 Diabetes screening 05/31/2024 05/31/2021, 05/30/2021 Covid-19 vaccine series (1 - 2023- season) 2024 Influenza vaccine 07/12/2025 11/11/2011 RSV Immunization (1 - 1-dose 75+ series) 2038 Pneumococcal Vaccine (2 - 49 years) Discontinued 11/11/1996 Meningococcal Vaccine Aged Out No emani russell eligible based on patient's age to complete this topic Procedures Procedure Name Priority Date/Time Associated Diagnosis Comments BASIC METABOLIC PANEL Routine 05/31/2021 5:44 AM EDT from Last 3 Months or Most Recently Relevant to Health Maintenance Results * (ABNORMAL) Basic metabolic panel (05/31/2021 5:44 AM EDT) Glucose 110 65 - 110 mg/dL 05/31/2021 7:31 AM [facility] Comment: Non-fastin-110 mg/dL Fasting (minimum 6 hrs): 65-99 mg/dL BUN 14 7 - 18 mg/dL 05/31/2021 7:31 AM [facility] Creatinine 0.54(L) 0.55 - 1.02 mg/dL 05/31/2021 7:31 AM [facility] eGFR (-TAJIK) >60 >60 mL/min/1. 73m2 05/31/2021 7:31 AM [facility] eGFR (NON -Macedonian) >60 >60 mL/min/1. 73m2 05/31/2021 7:31 AM [facility] Comment: (NOTE) These are estimated GFR values resulting from utilization of a calculation incorporating the best data available for input, but all assumptions may not be correct in every case. In addition, there are several situations (elderly over 70 years, , serious co morbidities, extremes of body size or nutritional status) which could contribute to a misleading result. Therefore, clinical correlation is advised to prevent arriving at an erroneous conclusion based solely on the calculation utilized. Sodium 142 136 - 145 mmol/L 05/31/2021 7:31 AM [facility] Potassium 3.7 3.5 - 5.1 mmol/L 05/31/2021 7:31 AM [facility] Chloride 109(H) 98 - 107 mmol/L 05/31/2021 7:31 AM [facility] CO2 27 21 - 32 mmol/L 05/31/2021 7:31 AM [facility] Anion Gap 6 5 - 15 mmol/L 05/31/2021 7:31 AM [facility] Calcium 8.4(L) 8.5 - 10.1 mg/dL 05/31/2021 7:31 AM [facility] Blood Venipuncture / Unknown 05/31/2021 5:44 AM EDT 05/31/2021 6:37 AM EDT us Marco Jones MD LAB BLOOD ORDERABLES Final Resul t Performing Organization Address City/State/[facility] [place] [address], [facility] [phone] from Last 3 Months or Most Recently Relevant to Health Maintenance Insurance [facility]ICARE [facility] MEDICARE Advance Directives * Full ACLS (Latest Code Status on File) Date Activated Date Inactivated Comments 05/31/2021 2:44 AM 05/31/2021 3:27 PM Question Answer Comments With Whom was the Code Status Discussed? Patient Care Teams Field Control Inspector Relationship Specialty Start Date End Date Theresa Guzman MD [address] [place] [address] PCP - General Family Medicine 05/30/21
== END 2025-05-31 16:39 | disposition home or self-care (01) ==
LOC: HO.HOP 15:41
PROVIDERS: PCP Family Medicine; Visit Provider Psychiatry & Neurology Psychiatry
DX: F41.1 Generalized anxiety disorder (principal); F34.0 Cyclothymic disorder
CPT/HCPCS: 90833; 99213

== ENCOUNTER → 2025-05-31 15:41 | Outpatient (BNVA) | payer MEDICARE, OTHER, SELFPAY | PROVIDERS: PCP Family Medicine; Visit Provider Psychiatry & Neurology Psychiatry | DX: F41.1 Generalized anxiety disorder (principal); F34.0 Cyclothymic disorder | CPT/HCPCS: 99212 ==

== ENCOUNTER 2025-07-05 11:11 | Outpatient (AMB) | payer MEDICARE, OTHER, SELFPAY ==
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
[2025-07-05 12:01] VITALS: BP 143/69; PULSE 69
--- OUTSIDE RECORDS SUMMARY | 2025-07-05 12:32 | XMS_ITS | Encounter Summary ---
Author Organization [facility] Address [address] [place] [address] [place] [address] Phone Care Team Providers Care Sewer Pipe Press Operator Name Role Phone Theresa Guzman MD Primary Care Provider + Meño Jeffers MD Unavailable Diya Munguia MD Unavailable Anup Zavaleta DO Unavailable Lisandro Marvin MD Unavailable Musa Rivera MD Unavailable Erwin Stafford NP Unavailable Theresa Guzman MD Unavailable [phone] Aram Kerr MD Unavailable Marlon Ramirez MD Unavailable [phone] Deven Valentine DO Primary Care Provider Deven Valentine DO Unavailable [phone] Encounter Details Date Type Department Care Team (Late st Contact Info) Description 03/28/2021 Procedure Pass [facility] Endoscopy Admitting Dept Virtual Department [address] [place] [address] Social History Tobacco Use Types Packs/Day Years [...] st Contact Info) Description 04/28/2025 Procedure Pass [facility] - [address] [place] [address] 07/16/2025 10:40 AM EDT Telemedicine [facility] All[facility] Center at [address] [place] [address] [address] [place] [address] Barbara Rockwell MD [address] [place] [address] [address] [place] [address] [email or web address] 07/19/2025 1:00 PM EDT Office Visit [address] [place] [address] Deven Valentine DO [address] [facility], 2nd [place] [address] 09/01/2025 1:00 PM EDT Office Visit [facility] [address] [place] [address] [address] [place] [address] Pascale Marques MD [address] [place] [address] [email or web address] 09/28/2025 8:00 AM EST Office Visit [address] [place], [place] [address] Deven Valentine DO [address] [place] [address], 2nd [place] [address] 10/12/2025 7:40 AM EST Office Visit [facility] [address] [place] [address] 3rd Floor, [address] [place] [address] Que Flores MD [address] [place] [address], [address] [place] [address] 11/26/2025 10:30 AM EST Appointment [facility] - [address] [place], [place] [address] Sridhar Chase MD [address] [place] [address], [address] [place] [address] documented as of this encounter Visit Diagnoses Not on filedocumented in this encounter Additional Health Concerns Infection Onset Date Last Indicated Resolved Time CoV-Risk 12/22/2024 12/22/2024 12/22/2024 2:11 PM EST COVID-19 12/22/2024 12/22/2024 01/12/2025 1:23 AM EST documented as of this encounter Care Teams Sewer Pipe Press Operator Relationship Specialty Start Date End Date Theresa Guzman MD [address] [place] [address] PCP - General 05/11/14 04/15/22 Deven Valentine DO [address] [place] [address], 2nd [place] [address] PCP - General Internal Medicine 04/16/22 Meño Jeffers MD [address] [place] [address] [address] [place] [address] Historical LMR Provider 08/31/17 2 Diya Munguia MD [address] [place] [address] Historical LMR Provider 08/31/17 2 Anup Zavaleta DO [address] [facility] [address] [place] [address] Historical LMR Provider 08/31/17 11/18/21 Lisandro Marvin MD 10 [facility] 2nd [place] [address] Historical LMR Provider 08/31/17 Musa Rivera MD [address] [facility] [address] [place] [address] Historical LMR Provider 08/31/17 2 Erwin Stafford NP [address] [place] [address] [address] [place] [address] Historical LMR Provider 08/31/17 2 Theresa Guzman MD [address] [place] [address] Historical LMR Provider 08/31/17 Aram Kerr MD [address] [facility], [address] [place] [address] Historical LMR Provider 08/31/17 11/18/21 Marlon Ramirez MD [address] [place] [phone] Historical LMR Provider 08/31/17 2 Deven Valentine DO [address] [place] [address], [address] [place] [address] [email or web address] Insurance Assigned Provider 02/14/25 documented as of this encounter Additional Source Comments The information contained in this document represents components of the legal health record. It is not the complete legal health record.[facility]
--- OUTSIDE RECORDS SUMMARY | 2025-07-05 12:32 | XMS_ITS | Encounter Summary ---
Author Organization [facility] Address [address] [place] [address] Care Team Providers Care Transitions Manager Rn Name Role Phone Theresa Guzman MD Primary Care Provider + Encounter Details Date Type Department Care Team (Late Contact Info) Description 03/09/2025 Scanned Document [facility] [address] [phone] Kraig Stark MD [address] [place] [phone] Social History Tobacco Use Types Packs/Day Years Used Date Smoking Tobacco: Never Assessed Comments Unknown Sex and Gender Information Value Date Recorded Sex Assigned at Not on file Legal Sex Female 8:22 AM EDT Gender Identity Not on file Sexual Orientation Not on file documented as of this encounter Plan of Treatment Upcoming Encounters Date Type Department Care Team (Late Contact Info) Description 09/16/2025 12:45 PM EST Clinical Support [facility] [address] [phone] Kraig Stark MD [address] [place] [phone] Peg Cid Au.D [address] [place] [phone] documented as of this encounter Visit Diagnoses Not on filedocumented in this encounter Care Teams Transitions Manager Rn Relationship Specialty Start Date End Date Theresa Guzman MD [address] [place] [address] PCP - General Family Medicine 09/15/21 documented as of this encounter
--- OUTSIDE RECORDS SUMMARY | 2025-07-05 12:32 | XMS_ITS | Clinical Summary ---
Author Organization [facility] Address [address] [place] [address] Care Team Providers Care Medical Records Tech Name Role Phone Theresa Guzman MD Primary Care Provider + Allergies Active Allergy Reactions Criticality Noted Date Comments Fluticasone Propion-Salmeterol Shortness Of Breath High 08/01/2020 Yeast infection Gadolinium-Containing Contrast Media Anaphylaxis High 05/31/2021 Lamotrigine Rash Low 04/30/2016 Latex, Natural Rubber Rash Low 08/05/2012 Moxifloxacin Diarrhea Low 08/01/2020 Oxycodone-Acetaminophen Shortness Of Breath High Propoxyphene N-Acetaminophen Shortness Of Breath High 04/30/2016 Sulfa (Sulfonamide Antibiotics) Anaphylaxis,Hives High 04/30/2016 Sulfate Ion Anaphylaxis High 05/30/2021 Medications turmeric 400 mg cap Take 1 capsule by mouth once daily. Active Lactobacillus acidophilus (PROBIOTIC ORAL) Take 1 tablet by mouth once daily. Active albuterol (PROVENTIL HFA;VENTOLIN HFA) 90 mcg/actuation inhaler Inhale 2 puffs by mouth every 4 (four) hours as needed for shortness of breath or wheezing. 05/30/20 Active ascorbic acid, vitamin C, (VITAMIN C) 250 MG tablet Take 250 mg by mouth once daily. Active aspirin 81 MG enteric coated tablet Take 81 mg by mouth once daily. 06/01/20 Active atenoloL (TENORMIN) 50 MG tablet Take 50 mg by mouth once daily. 03/28/20 21 Active ONETOUCH VERIO TEST STRIPS Strip Use as directed twice a day. 02/15/20 Active cholecalciferol , vitamin D3, 25 mcg (1,000 unit) tablet Take 1,000 Units by mouth once daily. Active cinnamon bark 500 mg capsule Take 1,000 mg by mouth 2 (two) times a day. Active divalproex (DEPAKOTE) 250 MG Delayed Release tablet Take 2 tablets by mouth at bedtime. 05/04/20 Active EPINEPHrine (EPIPEN) 0.3 mg/0.3 mL auto-injector DIRECTED ONCE INTRAMUSCULARLY 30 DAYS 12/06/19 Active gabapentin (NEURONTIN) 100 MG capsule TAKE 1 CAPSULE BY MOUTH IN THE MORNING, 1 CAP IN THE AFTERNOON, AND 2 3 CAPS AT BEDTIME 04/28/20 Active ONETOUCH DELICA PLUS LANCET 30 gauge USE DIRECTED TWICE A DAY 02/14/20 Active omega-3 fatty acids-fish oil 300-1,000 mg capsule Take 2 g by mouth once daily. Active SPIRIVA RESPIMAT 2.5 mcg/actuation inhaler Inhale 2 puffs by mouth once daily. 09/21/20 Active LORazepam (ATIVAN) 1 MG tablet Take 1 tablet by mouth at bedtime. 05/04/20 Active lisinopriL (PRINIVIL) 10 MG tablet Take 1 (one) tablet (10 mg total) by mouth once daily. 30 tablet 06/02/20 Active atorvastatin (LIPITOR) 40 MG tablet Take 1 (one) tablet (40 mg total) by mouth at bedtime. 30 tablet 06/02/20 Active Active Problems Problem Noted Date Diagnosed Date Rapid cycling bipolar disorder 06/02/2021 Close exposure to COVID-19 virus 05/31/2021 COPD (chronic obstructive pulmonary disease) Snoring 03/06/2019 Overview (05/31/2021): Last Assessment & Plan: She does snore at night and have excessive daytime somnolence. I have recommended that she try to lose the 10 pounds that she has gained. If she still has the symptoms it would make sense to proceed to a polysomnogram and sleep medicine services referral. SOB (shortness of breath) on exertion 01/31/2018 Overview (05/31/2021): Last Assessment & Plan: Advised patient if the chest tightness and shortness of breath with exertion are not relieved with her albuterol metered-dose inhaler which I have sent that she request a visit with her PCP to consider cardiac stress testing. Hypertension 01/30/2018 Seasonal allergies 07/15/2013 Overview (05/31/2021): Seasonal allergy Adhesive capsulitis of shoulder 08/08/2012 Overview (05/31/2021): Frozen shoulder Asthma 08/08/2012 Overview (05/31/2021): Asthma Last Assessment & Plan: Asthma-COPD overlap. Recommend resuming Flovent in addition to the Spiriva. The patient has been advised to take her albuterol as needed. Decreased O2 saturations are a late finding asthma exacerbations and she should therefore not delay. Fatigue 08/05/2012 Overview (05/31/2021): Fatigue Irritable bowel syndrome 08/05/2012 Overview (05/31/2021): Irritable bowel syndrome Osteoarthritis 08/05/2012 Overview (05/31/2021): Osteoarthritis Sleep disorder 08/05/2012 Overview (05/31/2021): Sleep disorder Resolved Problems Problem Noted Date Diagnosed Date Resolved Date Acute coronary syndrome 05/31/2021 07/2 01/2021 Chest pain 05/31/2021 06/02/2021 Immunizations Name Administration Dates Next Due Influenza Unspecified 11/11/2011 Pneumococcal Polysaccharide 11/11/1996 Family History Medical History Relation Name Comments Heart disease Father Cancer Mother Heart disease Mother Relation Name Status Comments Father Mother Social History Tobacco Use Types Packs/Day Years Used Date Smoking Tobacco: Former Smokeless Tobacco: Former Comments:quit 28 years ago Alcohol Use Standard Drinks/Week Comments Yes 2 (1 standard drink = 0.6 oz pur e alcohol) Comments No Sex and Gender Information Value Date Recorded Sex Assigned at Not on file Legal Sex Female 9:57 AM EDT Gender Identity Not on file Sexual Orientation Not on file Last Filed Vital Signs Vital Sign Reading Time Taken Comments Blood Pressure 116/59 06/02/2021 3:28 PM EDT Pulse 56 06/02/2021 4:30 PM EDT Temperature 36.7 C (98.1 F) 06/02/2021 3:28 PM EDT Respiratory Rate 21 06/02/2021 3:28 PM EDT Oxygen Saturation 100% 06/02/2021 3:28 PM EDT Inhaled Oxygen Concentration - - Weight 66.2 kg (145 lb 15.1 oz) 021 12:47 PM EDT Height 175.3 cm (5' 9 ) 05/31/2021 12:4 7 PM EDT Body Mass Index 21.55 05/31/2021 12:47 PM EDT Plan of Treatment Not on file Insurance [facility] Advance Directives For more information, please contact: [phone] * Full Code (Latest Code Status on File) Date Activated Date Inactivated Comments 05/31/2021 1:14 PM Care Teams Medical Records Tech Relationship Specialty Start Date End Date Theresa Guzman MD [address] [place] [id number] PCP - General Family Medicine 05/31/21
--- OUTSIDE RECORDS SUMMARY | 2025-07-05 12:32 | XMS_ITS | Clinical Summary ---
Author Organization [address] Address [address] [place] [phone] Phone Care Team Providers Care Auto Body Repair Technician Name Role Phone Theresa Guzman MD Primary Care Provider [phone] Allergies Active Allergy Reactions Criticality Noted Date [...] 65 - 110 mg/dL 05/31/2021 7:31 AM [facility] Comment: Non-fastin-110 mg/dL Fasting (minimum 6 hrs): 65-99 mg/dL BUN 14 7 - 18 mg/dL 05/31/2021 7:31 AM [facility] Creatinine 0.54(L) 0.55 - 1.02 mg/dL 05/31/2021 7:31 AM [facility] eGFR (-MONTSERRATIAN) >60 >60 mL/min/1. 73m2 05/31/2021 7:31 AM [facility] eGFR (NON -Macedonian) >60 >60 mL/min/1. 73m2 05/31/2021 7:31 AM [facility] Comment: (NOTE) These are estimated GFR values [...] 136 - 145 mmol/L 05/31/2021 7:31 AM [facility] Potassium 3.7 3.5 - 5.1 mmol/L 05/31/2021 7:31 AM [facility] Chloride 109(H) 98 - 107 mmol/L 05/31/2021 7:31 AM [facility] CO2 27 21 - 32 mmol/L 05/31/2021 7:31 AM [facility] Anion Gap 6 5 - 15 mmol/L 05/31/2021 7:31 AM [facility] Calcium 8.4(L) 8.5 - 10.1 mg/dL 05/31/2021 7:31 AM [facility] Blood Venipuncture / Unknown 05/31/2021 5:44 AM EDT 05/31/2021 6:37 AM EDT us Marco Jones MD LAB BLOOD ORDERABLES Final Resul t Performing Organization Address City/State/[facility] [place] [address], [facility] [phone] from Last 3 Months or Most Recently Relevant to Health Maintenance Insurance [facility] [employer] [employer] Advance Directives * Full ACLS (Latest Code Status on File) Date Activated Date Inactivated Comments 05/31/2021 2:44 AM 05/31/2021 3:27 PM Question Answer Comments With Whom was the Code Status Discussed? Patient Care Teams Auto Body Repair Technician Relationship Specialty Start Date End Date Theresa Guzman MD [address] [place] [phone] PCP - General Family Medicine 05/30/21
== END 2025-07-05 12:12 | disposition home or self-care (01) ==
LOC: HO.HOP 11:11
PROVIDERS: PCP Family Medicine; Visit Provider Psychiatry & Neurology Psychiatry
DX: F43.10 Post-traumatic stress disorder, unspecified (principal); F41.1 Generalized anxiety disorder
CPT/HCPCS: 90833; 99213

== ENCOUNTER → 2025-07-05 11:11 | Outpatient (BNVA) | payer MEDICARE, OTHER, SELFPAY | PROVIDERS: PCP Family Medicine; Visit Provider Psychiatry & Neurology Psychiatry | DX: F43.10 Post-traumatic stress disorder, unspecified (principal); F41.1 Generalized anxiety disorder; Z79.899 Other long term (current) drug therapy | CPT/HCPCS: 99212 ==

== ENCOUNTER 2025-08-09 11:42 | Outpatient (AMB) | payer MEDICARE, OTHER, SELFPAY ==
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
--- OUTSIDE RECORDS SUMMARY | 2025-08-09 13:12 | XMS_ITS | Encounter Summary ---
Author Organization [facility] Address [address] [place] [address] [place] [phone] Phone Care Team Providers Care Commercial Energy Auditor Name Role Phone Theresa Guzman MD Primary Care Provider + Meño Jeffers MD Unavailable [phone] Diya Nascimento MD Unavailable Anup Zavaleta DO Unavailable [phone] Lisandro Marvin MD Unavailable Musa Rivera MD Unavailable Erwin Stafford NP Unavailable Theresa Guzman MD Unavailable Aram Kerr MD Unavailable [phone] Marlon Ramirez MD Unavailable Deven Valentine DO Primary Care Provider Deven Valentine DO Unavailable [phone] Encounter Details Date Type Department Care Team (Late st Contact Info) Description 09/30/2019 Transcribe Orders [facility] Department [address] [place] [address] Theresa Guzman MD [address] [place] [address] [email or web address] Low back pain, unspecified back pain laterality, unspecified chronicity, unspecified whether sciatica present (Primary Dx); Pelvic and perineal pain Social History Tobacco Use Types Packs/Day Years [...] st Contact Info) Description 04/28/2025 Procedure Pass [facility] - [address] [place] [address] 09/01/2025 1:00 PM EDT Office Visit [facility] [address] [facility] [address] [place] [address] Pascale Marques MD [address] [place] [address] [address] [place] [address] [email or web address] 09/28/2025 8:00 AM EST Office Visit [facility] [address] [place] [address] Deven Valentine DO [address] [place] [address], [address] [place] [address] [email or web address] 10/12/2025 7:40 AM EST Office Visit [facility] [address] [place] [address] 3rd Floor, [address] [place] [address] Que Flores MD [address] [facility], [address] [place] [address] [email or web address] 11/26/2025 10:30 AM EST Appointment [address] [place] [address] Sridhar Chase MD [address] [facility], [address] [place] [address] [email or web address] documented as of this encounter Results * US PELVIS TRANSVAGINAL ONLY WITH DOPPLER (10/05/2019 3:46 PM EST) Anatomical Region Laterality Modality Pelvis, Uterus/Adnexa Ultrasound 10/05/2019 5:34 PM EST Impressions 10/05/2019 5:38 PM EST 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 Otherwise, unremarkable study. POS - [id number] Narrative 10/05/2019 5:38 PM EST EXAM: US PELVIS TRANSVAGINAL WITH LIMITED DOPPLER COMPARISON: None HISTORY: Low back pain, pelvic/perineal pain. FINDINGS: UTERUS: The uterus is anteflexed and midline, measures 4.6 cm x 2.4 cm x 3.0 cm, volume of 17.2 cm3, and demonstrates homogeneous myometrial echotexture. There is a small intramural hypoechoic lesion in the anterior myometrium measuring 0.9 cm. The endometrial echocomplex measures 0.2 cm in thickness. RIGHT OVARY: 1.5 cm x 0.9 cm x 1.2 cm, volume of 0.8 cm3. Unremarkable appearance. Vascular flow is demonstrated with color and spectral Doppler.. LEFT OVARY: 1.1 cm x 1.8 cm x 1.3 cm, volume of 1.4 cm3. Unremarkable appearance. Vascular flow is demonstrated with color and spectral Doppler.. PELVIS: No free fluid. Procedure Note Yazmin Newby MD - 10/05/2019 EXAM: US PELVIS TRANSVAGINAL WITH LIMITED DOPPLER COMPARISON: None HISTORY: Low back pain, pelvic/perineal pain. FINDINGS: UTERUS: The uterus is anteflexed and midline, measures 4.6 cm x 2.4 cm x3.0 cm, volume of 17.2 cm3, and demonstrates homogeneous myometrialechotexture. There is a small intramural hypoechoic lesion in the anteriormyometrium measuring 0.9 cm. The endometrial echocomplex measures 0.2 cmin thickness. RIGHT OVARY: 1.5 cm x 0.9 cm x 1.2 cm, volume of 0.8 cm3. Unremarkableappearance. Vascular flow is demonstrated with color and spectralDoppler.. LEFT OVARY: 1.1 cm x 1.8 cm x 1.3 cm, volume of 1.4 cm3. Unremarkableappearance. Vascular flow is demonstrated with color and spectralDoppler.. PELVIS: No free fluid. IMPRESSION: 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 Otherwise, unremarkable study. POS - [id number] us Theresa Guzman MD IMG US PELVIS Final Re sult documented in this encounter Visit Diagnoses Diagnosis Low back pain, unspecified back pain laterality, unspecified chronicity, unspecified whether sciatica present- Primary Pelvic and perineal pain Low back pain, unspecified back pain laterality, unspecified chronicity, unspecified whether sciatica present Pelvic and perineal pain documented in this encounter Additional Health Concerns Infection Onset Date Last Indicated Resolved Time CoV-Risk 12/22/2024 12/22/2024 12/22/2024 2:11 PM EST COVID-19 12/22/2024 12/22/2024 01/12/2025 1:23 AM EST documented as of this encounter Care Teams Commercial Energy Auditor Relationship Specialty Start Date End Date Theresa Guzman MD [address] [place] [address] [email or web address] PCP - General 05/11/14 04/15/22 Deven Valentine DO [address] [place] [address], [address] [place] [address] PCP - General Internal Medicine 04/16/22 Meño Jeffers MD [address] [facility] [address]st [address] [place] [address] Historical LMR Provider 08/31/17 2 Diya Munguia MD [address] [place] [address] Historical LMR Provider 08/31/17 2 Anup Zavaleta DO [address] [address] Historical LMR Provider 08/31/17 11/18/21 Lisandro Marvin MD [address] [facility] 2nd [place] [address] Historical LMR Provider 08/31/17 Musa Rivera MD [address] [address] Historical LMR Provider 08/31/17 2 Erwin Stafford NP [address] [place] [address] [address] [place] [address] Historical LMR Provider 08/31/17 2 Theresa Guzman MD [address] [place] [address] Historical LMR Provider 08/31/17 Aram Kerr MD [facility], [address] [place] [address] [email or web address] Historical LMR Provider 08/31/17 11/18/21 Marlon Ramirez MD [address] [place] [phone] Historical LMR Provider 08/31/17 2 Deven Valentine DO [address] [place] [address], [address] [place] [address] [email or web address] Insurance Assigned Provider 02/14/25 documented as of this encounter Additional Source Comments The information contained in this document represents components of the legal health record. It is not the complete legal health record.[facility]
--- OUTSIDE RECORDS SUMMARY | 2025-08-09 13:12 | XMS_ITS | Encounter Summary ---
Author Organization [facility] Address [address] [place] [address] [place] [address] Phone Care Team Providers Care Logistics Support Name Role Phone Theresa Guzman MD Primary Care Provider + Meño Jeffers MD Unavailable RendonDiya Nascimento MD Unavailable Anup Zavaleta DO Unavailable Lisandro Marvin MD Unavailable [phone] Musa Rivera MD Unavailable [phone] Erwin Stafford NP Unavailable [phone] Theresa Guzman MD Unavailable Aram Kerr MD Unavailable Marlon Ramirez MD Unavailable [phone] Deven Valentine DO Primary Care Provider Deven Valentine DO Unavailable [phone] Encounter Details Date Type Department Care Team (Latest Contact Info) Description 04/17/2019 Transcribe Orders [facility] Laboratory [address] [place] [address] Leana López ARNP Pre-employment examination (Primary Dx) Social History Tobacco Use Types Packs/Day Years [...] st Contact Info) Description 04/28/2025 Procedure Pass [address] [place] [address] 09/01/2025 1:00 PM EDT Office Visit [facility] [address] [facility] [address] [place] [address] Pascale Marques MD [address] [place] [address] 11 [place] [address] [email or web address] 09/28/2025 8:00 AM EST Office Visit [facility] [address] [place] [address] [place] [address] Deven Valentine DO [address] [place] [address], 2nd [place] [address] 10/12/2025 7:40 AM EST Office Visit [facility] [address] [place] [address] 3rd Floor, [address] [place] [address] Que Flores MD 22 [facility], [address] [place] [address] 11/26/2025 10:30 AM EST Appointment [address] [place] [address] Sridhar Chase MD [address] [place] [address], [address] [place] [address] [email or web address] documented as of this encounter Results * Varicella-zoster (VZV) antibody, IgG (04/17/2019 10:17 AM EDT) Varicella Ab(s) Positive Positive [facility] Blood (Blood) 04/17/2019 10: 17 AM EDT 04/17/2019 10:20 AM EDT Leana SALINAS NON CULTURE MICROBIOLOGY Fi nal Result Performing Organization Address [facility] Co de Phone Number [address] [address] * T spot TB test (04/17/2019 10:17 AM EDT) T SPOT Tuberculosis Negative [facility] Comment:TESTING PERFORMED AT [employer] [place] [address] Blood 04/17/2019 10:1 7 AM EDT 04/17/2019 10:20 AM EDT Leana SALINAS LAB BLOOD ORDERABLES Final Result Performing Organization Address [facility]/ZIP Co de Phone Number [address] [address] * Hepatitis B surface antibody (04/17/2019 10:17 AM EDT) HBV SURFACE ANTIBODY Positive [facility] Comment: Unvaccinated: Negative Vaccinated: Positive Blood 04/17/2019 10:1 7 AM EDT 04/17/2019 10:20 AM EDT Leana SALINAS LAB BLOOD ORDERABLES Final Result Performing Organization Address [facility]/ZIP Co de Phone Number [address] [place] [address] documented in this encounter Visit Diagnoses Diagnosis Pre-employment examination- Primary documented in this encounter Additional Health Concerns Infection Onset Date Last Indicated Resolved Time CoV-Risk 12/22/2024 12/22/2024 12/22/2024 2:11 PM EST COVID-19 12/22/2024 12/22/2024 01/12/2025 1:23 AM EST documented as of this encounter Care Teams Logistics Support Relationship Specialty Start Date End Date Theresa Guzman MD [address] [place] [address] PCP - General 05/11/14 04/15/22 Deven Valentine DO [address] [place] [address], [address] [place] [address] PCP - General Internal Medicine 04/16/22 Meño Jeffers MD [address] [place] [address] [address] [address] Historical LMR Provider 08/31/17 2 Diya Munguia MD [address] [place] [address] Historical LMR Provider 08/31/17 2 Anup Zavaleta DO [address] [address] Historical LMR Provider 08/31/17 11/18/21 Lisandro Marvin MD [address] [place] [address] Historical LMR Provider 08/31/17 Musa Rivera MD [facility] [address] [place] [address] Historical LMR Provider 08/31/17 2 Erwin Stafford NP [address] [place] [address] 2-1 [place] [phone] Historical LMR Provider 08/31/17 2 Theresa Guzman MD [address] [place] [address] Historical LMR Provider 08/31/17 Aram Kerr MD [address] [place] [address] [address] [place] [address] Historical LMR Provider 08/31/17 11/18/21 Marlon Ramirez MD [address] [place] [phone] Historical LMR Provider 08/31/17 2 Deven Valentine DO [address] [place] [address], 2nd [place] [address] Insurance Assigned Provider 02/14/25 documented as of this encounter Additional Source Comments The information contained in this document represents components of the legal health record. It is not the complete legal health record.[facility]
--- OUTSIDE RECORDS SUMMARY | 2025-08-09 13:12 | XMS_ITS | Encounter Summary ---
Author Organization [facility] Address [address] [place] [address] [place] [address] Phone Care Team Providers Care Transverse Abdominal Muscle Nurse Name Role Phone Theresa Guzman MD Primary Care Provider + Meño Jeffers MD Unavailable Diya Munguia MD Unavailable Peggy Zavaleta DO Unavailable [phone] Lisandro Marvin MD Unavailable Musa Rivera MD Unavailable Erwin Stafford NP Unavailable [phone] Theresa Guzman MD Unavailable Aram Kerr MD Unavailable [phone] Marlon Ramirez MD Unavailable [phone] Deven Valentine DO Primary Care Provider Deven Valentine DO Unavailable [phone] Encounter Details Date Type Department Care Team (Late st Contact Info) Description 09/30/2019 Ancillary Orders [facility] Department [address] [place] [address] Theresa Guzman MD [address] [place] [address] Menopausal and female climacteric states Social History Tobacco Use Types Packs/Day Years [...] st Contact Info) Description 04/28/2025 Procedure Pass [address] [place] [address] 09/01/2025 1:00 PM EDT Office Visit [facility] [address] [facility] [address] [place] [address] Pascale Marques MD 60 [facility] [address] [place] [address] [email or web address] 09/28/2025 8:00 AM EST Office Visit [facility] [address] [place] [address] Deven Valentine DO [address] [place] [address], 2nd [place] [address] 10/12/2025 7:40 AM EST Office Visit [facility] [address] [place] [address] Dr 3rd Floor, [address] [place] [address] Que Flores MD [address] [facility], [address] [place] [address] 11/26/2025 10:30 AM EST Appointment [address] [place], [place] [address] Sridhar Chase MD [address] [place] [address], [address] [place] [address] [email or web address] documented as of this encounter Results * BD DXA AXIAL (SPINE) WITH HIP (12/10/2019 8:26 AM EST) Anatomical Region Laterality Modality Bone Density Bone Density 12/10/2019 9:23 AM EST Impressions 12/10/2019 9:28 AM EST Osteopenia. Decrease in density of significant level in all sites assessed since prior study of 2012. POS -[id number] Narrative 12/10/2019 9:28 AM EST This is a 54-year-old postmenopausal white female with no perceived height loss. Comparison is made to prior study of October 15, 2013.. Evaluation of the lumbar spine and hips was performed and appears to be technically adequate. Total bone mineral density in the L1-L4 vertebral bodies was calculated at 0.947 gm/cm2 with a T score of -0.9. This falls within the WHO classification of normal. Since prior study there is a decrease in density of 7.3% which is statistically significant at the 95% confidence interval. Total bone mineral density in the right proximal femur was calculated at 0.823 gm/cm2 with a T-score of -1.0 falling within the WHO classification of normal. Right femoral neck bone mineral density was calculated at 0.698 gm/cm2 with a T-score of -1.4 falling within the WHO classification of osteopenia. Patient's Z score in the proximal femur is 0.9 and at the neck -0.2. Since prior study there is a decrease in density of 8.4% which is statistically significant. Total bone mineral density in the left proximal femur was calculated at 0.787 gm/cm2 with a T-score of -1.3 falling within the WHO classification of osteopenia. Bone mineral density in the left femoral neck was calculated at 0.684 gm/cm2 with a T-score of -1.5 falling within the WHO classification of osteopenia. Z score in the proximal femur is -0.5 and in the neck -0.4. Since prior study there is a decrease in density of 7.2%. FRAX: WHO Fracture Risk Assessment 10-year Fracture risk Major Osteoporotic Fracture: 7.2 %. Hip Fracture: 0.6 %. Procedure Note Peggy Troncoso MD - 12/10/2019 This is a 54-year-old postmenopausal white female with no perceived heightloss. Comparison is made to prior study of October 15, 2013.. Evaluation of the lumbar spine and hips was performed and appears to betechnically adequate. Total bone mineral density in the L1-L4 vertebral bodies was calculated at0.947 gm/cm2 with a T score of -0.9. This falls within the WHOclassification of normal. Since prior study there is a decrease in densityof 7.3% which is statistically significant at the 95% confidenceinterval. Total bone mineral density in the right proximal femur was calculated at0.823 gm/cm2 with a T-score of -1.0 falling within the WHO classificationof normal. Right femoral neck bone mineral density was calculated at 0.698gm/cm2 with a T-score of -1.4 falling within the WHO classification ofosteopenia. Patient's Z score in the proximal femur is 0.9 and at the neck-0.2. Since prior study there is a decrease in density of 8.4% which isstatistically significant. Total bone mineral density in the left proximal femur was calculated at0.787 gm/cm2 with a T-score of -1.3 falling within the WHO classificationof osteopenia. Bone mineral density in the left femoral neck wascalculated at 0.684 gm/cm2 with a T- score of -1.5 falling within the WHOclassification of osteopenia. Z score in the proximal femur is -0.5 andin the neck -0.4. Since prior study there is a decrease in density of7.2%. FRAX: WHO Fracture Risk Assessment 10-year Fracture risk Major Osteoporotic Fracture: 7.2 %. Hip Fracture: 0.6 %. IMPRESSION: Osteopenia. Decrease in density of significant level in all sites assessedsince prior study of 2013. POS -[id number] us Theresa Guzman MD IMG BD BONE DENSITY DEXA Final Result documented in this encounter Visit Diagnoses Diagnosis Menopausal and female climacteric states Menopausal and female climacteric states documented in this encounter Additional Health Concerns Infection Onset Date Last Indicated Resolved Time CoV-Risk 12/22/2024 12/22/2024 12/22/2024 2:11 PM EST COVID-19 12/22/2024 12/22/2024 01/12/2025 1:23 AM EST documented as of this encounter Care Teams Transverse Abdominal Muscle Nurse Relationship Specialty Start Date End Date Theresa Guzman MD [address] [place] [address] PCP - General 05/11/14 04/15/22 Deven Valentine DO [address] [place] [address], 2nd [place] [address] PCP - General Internal Medicine 04/16/22 Meño Jeffers MD 50 [facility] 1st [place] [address] Historical LMR Provider 08/31/17 2 Diya Munguia MD [facility] [place] [address] Historical LMR Provider 08/31/17 2 Peggy Zavaleta DO [address] [facility] [address] [place] [address] Historical LMR Provider 08/31/17 11/18/21 Lisandro Marvin MD [address] [place] [address] Historical LMR Provider 08/31/17 Musa Rivera MD [address] [place] [address] Historical LMR Provider 08/31/17 2 Erwin Stafford NP [address] [place] [address] [phone] Historical LMR Provider 08/31/17 2 Theresa Guzman MD [address] [place] [address] Historical LMR Provider 08/31/17 Aram Kerr MD [address] [place] [address] Historical LMR Provider 08/31/17 11/18/21 Marlon Ramirez MD [address] [place] [phone] Historical LMR Provider 08/31/17 2 Deven Valentine DO [address] [place] [address] Insurance Assigned Provider 02/14/25 documented as of this encounter Additional Source Comments The information contained in this document represents components of the legal health record. It is not the complete legal health record.[facility]
--- OUTSIDE RECORDS SUMMARY | 2025-08-09 13:12 | XMS_ITS | Encounter Summary ---
Author Organization [facility] Address [address] [place] [address] [place] [address] Phone Care Team Providers Care Health Claims Examiner Name Role Phone Theresa Guzman MD Primary Care Provider + Meño Jeffers MD Unavailable [phone] RendonDiya Nascimento MD Unavailable Peggy Zavaleta DO Unavailable [phone] Lisandro Marvin MD Unavailable Musa Rivera MD Unavailable Erwin Stafford NP Unavailable Theresa Guzman MD Unavailable Aram Kerr MD Unavailable [phone] Marlon Ramirez MD Unavailable [phone] Deven Valentine DO Primary Care Provider Deven Valentine DO Unavailable [phone] Encounter Details Date Type Department Care Team (Late st Contact Info) Description 11/30/2019 Ancillary Orders [facility] X-Ray - [address] [place] [address] Casey Rausch MD [address] [place] [address] [email or web address] Cough; Shortness of breath Social History Tobacco Use Types Packs/Day Years [...] st Contact Info) Description 04/28/2025 Procedure Pass [facility] - [address] [place] [address] 09/01/2025 1:00 PM EDT Office Visit [facility] [address] [facility] [address] [place] [address] Pascale Marques MD [address] [place] [address] [address] [place] [address] [email or web address] 09/28/2025 8:00 AM EST Office Visit [facility] [address] [place] [address] Deven Valentine DO [address] [place] [address], 2nd [place] [address] 10/12/2025 7:40 AM EST Office Visit [facility] [address] [place] [address] 3rd Floor, [address] [place] [address] Que Flores MD [address] [place] [address], [address] [place] [address] 11/26/2025 10:30 AM EST Appointment [address] [place] [address] Sridhar Chase MD [address] [place] [address], [address] [place] [address] [email or web address] documented as of this encounter Results * XR CHEST PA AND LATERAL 2 VIEWS (11/30/2019 11:07 AM EST) Anatomical Region Laterality Modality Chest Radiographic [place] 11/30/2019 11:1 2 AM EST Impressions 11/30/2019 11:13 AM EST No acute cardiopulmonary abnormality detected. POS - [id number] Narrative 11/30/2019 11:13 AM EST PA and lateral views the chest obtained. Multiple prior, most recent January 31, 2018. Lungs appear clear. Heart and mediastinal contours appear unchanged. No infiltrates or effusions. No compression deformity. Cervical fusion hardware again noted. Procedure Note Peggy Troncoso MD - 11/30/2019 PA and lateral views the chest obtained. Multiple prior, most recent 2017. Lungs appear clear. Heart and mediastinal contours appearunchanged. No infiltrates or effusions. No compression deformity. Cervicalfusion hardware again noted. IMPRESSION: No acute cardiopulmonary abnormality detected. POS - [id number] us Casey Rausch MD IMG XR CHEST Final Result documented in this encounter Visit Diagnoses Diagnosis Cough Shortness of breath Cough Shortness of breath documented in this encounter Additional Health Concerns Infection Onset Date Last Indicated Resolved Time CoV-Risk 12/22/2024 12/22/2024 12/22/2024 2:11 PM EST COVID-19 12/22/2024 12/22/2024 01/12/2025 1:23 AM EST documented as of this encounter Care Teams Health Claims Examiner Relationship Specialty Start Date End Date Guzman, Theresa J, MD [address] [place] [address] PCP - General 05/11/14 04/15/22 Deven Valentine DO [address] [place] [address], 2nd [place] [address] PCP - General Internal Medicine 04/16/22 Meño Jeffers MD [address] [place] [address] 1[address] [place] [address] Historical LMR Provider 08/31/17 2 Diya Munguia MD [address] [place] [address] Historical LMR Provider 08/31/17 2 Peggy Zavaleta DO [address] [address] Historical LMR Provider 08/31/17 11/18/21 Lisandro Marvin MD [address] [place] [address] Historical LMR Provider 08/31/17 Musa Rivera MD [address] [place] [address] Historical LMR Provider 08/31/17 2 Erwin Stafford NP [address] [place] [address] [address] [place] [address] Historical LMR Provider 08/31/17 2 Theresa Guzman MD [address] [place] [address] Historical LMR Provider 08/31/17 Aram Kerr MD [address] [place] [address] [address] [place] [address] Historical LMR Provider 08/31/17 11/18/21 Marlon Ramirez MD [address] [place] [phone] Historical LMR Provider 08/31/17 2 Deven Valentine DO [address] [place] [address], 2nd [place] [address] Insurance Assigned Provider 02/14/25 documented as of this encounter Additional Source Comments The information contained in this document represents components of the legal health record. It is not the complete legal health record.[facility]
--- OUTSIDE RECORDS SUMMARY | 2025-08-09 13:12 | XMS_ITS | Clinical Summary ---
Author Organization [facility] Address [address] [place] [address] Care Team Providers Care Actuarial Technician Name Role Phone Theresa Guzman MD [...] Care Team (Late st Contact Info) Description 09/16/2025 12:45 PM EST Clinical Support [facility] [place] [address] [facility], [place] [address] Kraig Stark MD [address] [place] [phone] Peg Cid Au.D [address] [place] [address] Health Maintenance Due Date Last Done Comments Hepatitis C Virus Screening 1965 HIV Screening 02/27/1976 DTaP/Tdap/Td Vaccines (1 - Tdap) 1982 Pap Smear (Ages 21-65) 02/27/1984 Mammogram 2003 Colonoscopy 02/27/2008 Pneumococcal Vaccines 50+ (1 of 1 - PCV) 2013 Zoster (Shingles) Vaccine (1 of 2) 2013 Influenza Vaccine 06/11/2025 COVID-19 Vaccine ( - 2023-2 5 season) 2025 RSV Vaccine 60 years and old er and Patients (1 - 1-dose 75+ series) 2038 Hepatitis B Vaccines Aged Out No long er eligible based on patient's age to complete this topic Insurance [facility] MEDICARE PART A & B Care Teams Actuarial Technician Relationship Specialty Start Date End Date Theresa Guzman MD [address] [place] [address] PCP - General Family Medicine 09/15/21
--- OUTSIDE RECORDS SUMMARY | 2025-08-09 13:12 | XMS_ITS | Encounter Summary ---
Author Organization [facility] Address [address] [place] [address] [place] [address] Phone Care Team Providers Care Rn Infusion Name Role Phone Theresa Guzman MD Primary Care Provider + Meño Jeffers MD Unavailable RendonDiya Nascimento MD Unavailable Peggy Zavaleta DO Unavailable Lisandro Marvin MD Unavailable Musa Rivera MD Unavailable [phone] Erwin Stafford NP Unavailable [phone] Theresa Guzman MD Unavailable Aram Kerr MD Unavailable Marlon Ramirez MD Unavailable [phone] Deven Valentine DO Primary Care Provider Deven Valentine DO Unavailable [phone] Encounter Details Date Type Department Care Team (Late st Contact Info) Description 11/30/2019 Ancillary Orders [facility], X-Ray - [address] [place] [address] Casey Rausch MD [address] [place] [address] [email or web address] Cough; Shortness of breath Social History Tobacco [...] st Contact Info) Description 04/28/2025 Procedure Pass [facility] - [address] [place] [address] 09/01/2025 1:00 PM EDT Office Visit [facility] [address] [facility] [address] [place] [address] Pascale Marques MD [address] [place] [address] [address] [place] [address] [email or web address] 09/28/2025 8:00 AM EST Office Visit [facility] [address] [place] [address] Deven Valentine DO [address] [place] [address], 2nd [place] [address] 10/12/2025 7:40 AM EST Office Visit [facility] [address] [place] [address] 3rd Floor, [address] [place] [address] Que Flores MD [address] [place] [address], [address] [place] [address] 11/26/2025 10:30 AM EST Appointment [address] [place] [address] Sridhar Chase MD [address] [place] [address], [address] [place] [address] [email or web address] documented as of this encounter Results * XR PARANASAL SINUSES 3 OR MORE VIEWS (11/30/2019 11:06 AM EST) Anatomical Region Laterality Modality Face Radiographic Peace ging 11/30/2019 11:1 3 AM EST Impressions 11/30/2019 11:14 AM EST No plain film findings of sinusitis. POS - [id number] Narrative 11/30/2019 11:14 AM EST Paranasal sinuses 4 views. No prior. Sinuses normally pneumatized. No fluid levels or prominent thickening. Nasal septum does not appear prominently deviated. Pineal appears slightly to the right of midline, probably related to mild rotation. Procedure Note Peggy Troncoso MD - 11/30/2019 Paranasal sinuses 4 views. No prior. Sinuses normally pneumatized. Nofluid levels or prominent thickening. Nasal septum does not appearprominently deviated. Pineal appears slightly to the right of midline,probably related to mild rotation. IMPRESSION: No plain film findings of sinusitis. POS - [id number] us Casey Rausch MD IMG XR HEAD AND SHUNT SERIES Final Result documented in this encounter Visit Diagnoses Diagnosis Cough Shortness of breath Cough Shortness of breath documented in this encounter Additional Health Concerns Infection Onset Date Last Indicated Resolved Time CoV-Risk 12/22/2024 12/22/2024 12/22/2024 2:11 PM EST COVID-19 12/22/2024 12/22/2024 01/12/2025 1:23 AM EST documented as of this encounter Care Teams Rn Infusion Relationship Specialty Start Date End Date Theresa Guzman MD [address] [place] [address] PCP - General 05/11/14 04/15/22 Deven Valentine DO [address] [place] [address], 2nd [place] [address] PCP - General Internal Medicine 04/16/22 Meño Jeffers MD [address] [place] [address] 1st Floor [address] [place] [address] Historical LMR Provider 08/31/17 2 Diya Munguia MD [address] [place] [address] Historical LMR Provider 08/31/17 2 Peggy Zavaleta DO [address] [address] Historical LMR Provider 08/31/17 11/18/21 Lisandro Marvin MD [address] [address] Historical LMR Provider 08/31/17 Musa Rivera MD [address] [address] Historical LMR Provider 08/31/17 2 Erwin Stafford NP [address] [place] [address] 21 [place] [address] Historical LMR Provider 08/31/17 2 Theresa Guzman MD [address] [place] [address] Historical LMR Provider 08/31/17 Aram Kerr MD [address] [place] [address], [address] [place] [address] Historical LMR Provider 08/31/17 11/18/21 Marlon Ramirez MD [address] [place] [address] Historical LMR Provider 08/31/17 2 Deven Valentine DO [address] [place] [address], 2nd [place] [address] Insurance Assigned Provider 02/14/25 documented as of this encounter Additional Source Comments The information contained in this document represents components of the legal health record. It is not the complete legal health record.[facility]
--- OUTSIDE RECORDS SUMMARY | 2025-08-09 13:12 | XMS_ITS | Encounter Summary ---
Author Organization [facility] Address [address] [facility] [address] [place] [address] Phone Care Team Providers Care Glass Pulverizer Equipment Operator Name Role Phone Lisandro Marvin MD Unavailable [phone] Theresa Guzman MD Unavailable [phone] Deven Valentine DO Primary Care Provider Deven Valentine DO Unavailable [phone] Reason for Visit * Reason Comments Medication Refill Encounter Details Date Type Department Care Team (Late st Contact Info) Description 08/05/2025 Refill [facility] [address] [place] [address] Deven Valentine DO [address] [facility], 2nd [place] [address] [email or web address] Medication Refill Social History Tobacco Use Types Packs/Day Years Used Date Smoking Tobacco: Former Cigarettes 1 14 1 9 - 1992 Smokeless Tobacco: Never Alcohol Use Standard Drinks/Week Comments Yes 0 (1 standard drink = 0.6 oz pur e alcohol) 4 weekly Child or Family Care Answer Date Record ed Do you have problems with on e of the following making it difficult for you to work, study, or receive health care? No 04/16/2022 Education Answer Date Recorded Are you interested in more education? Not on jeniffer e 04/19/2024 Are you concerned about learning? Not on file 04/19/2024 No 04/19/2024 No 04/19/2024 Food Answer Date Recorded Within the past 6 months we worried whether our food would run out before we got money to buy more. Sometimes True 022 Within the past 6 months the food we bought just didn't last and we didn't have enough money to get more. Sometimes True 04/2022 Residential Stability Answer Date Recor ded What is your housing situation today? I have bárbara sing 04/16/2022 How many times have you move d in the past 12 months? Zero (I did not move) 04/16/2022 Paying for Meds Answer Date Recorded Do you have trouble paying for medicines? Yes 04/16/2022 Paying Utility Bills Answer Date Record ed Do you have trouble paying your heating or elect ricity bill? Yes 04/16/2022 Transportation Answer Date Recorded Has the lack of transportati on kept you from medical appointments or from getting medications? No 04/16/2022 Unemployment Answer Date Recorded Are you currently unemployed or working on a part-time or temporary basis, and looking for work? Yes 04/16/2022 Digital Access Answer Date Recorded No 04/07/2023 No 04/07/2023 Reliable internet access at home? Not on file 04/07/2023 Device with a working camera? Not on file Intimate Partner Violence Answer Date R ecorded Denied Basic Needs Not on file 07/14/2025 In the past 12 months have y ou been in a relationship with a person who hurts, threatens, or tries to control you? No 07/14/2025 Worried food would run out Not on file 07/14 In the past 12 months have y ou been in a relationship with a person who hurts, threatens, or tries to control you? No 07/14/2025 Comments No Sex and Gender Information Value Date Recorded Sex Assigned at Choose not to disclose 02/2023 8:36 AM EDT Legal Sex Female 4:49 PM EST Gender Identity Choose not to disclose 8:36 AM EDT Sexual Orientation Choose not to disclose 2021 11:26 AM EDT Sexual Orientation Straight 08/09/2022 11 :26 AM EDT documented as of this encounter Progress Notes * Eric Oro CMA - 08/05/2025 2:40 PM EDT Rx Care Gap Status - Instructions for Clinical Staff (prescriber discretion applies): > Mismatch review guide > N/a - No action needed Visit Info Last visit: 07/15/2025 Deven Valentine, - Family Medicine [facility] > Requested f/u: Return for Next scheduled follow up. Upcoming visit: 09/28/2025 Deven Valentine DO - Family Medicine [facility] ACTIONS TAKEN BY Eric Oro CMA - Criteria met. AV Kamar Blockers Rx Protocol (on HTN Registry) - atenolol Criteria met; renew for up to 12 months. Visit in the past 14 months: Yes Clinical criteria: - BP within last 6 months: 142/74 on 04/28/2025 - Last HR: 87 on 03/30/2025 documented in this encounter Plan of Treatment Upcoming Encounters Date Type Department Care Team (Late st Contact Info) Description 04/28/2025 Procedure Pass [facility] - [address] [place] [address] 09/01/2025 1:00 PM EDT Office Visit [facility] [address] [facility] [address] [place] [address] Pascale Marques MD [address] [facility] 11 [place] [address] [email or web address] 09/28/2025 8:00 AM EST Office Visit [address] [place] [address] Deven Valentine DO [address] [facility], 2nd [place] [address] 10/12/2025 7:40 AM EST Office Visit [facility] [address] [place] [address] 3rd Floor, [address] [place] [address] Que Flores MD [address] [facility], [address] [place] [address] 11/26/2025 10:30 AM EST Appointment [address] [place] [address] Sridhar Chase MD [address] [place] [address], [address] [place] [address] documented as of this encounter Visit Diagnoses Not on filedocumented in this encounter Additional Health Concerns Assessment Noted Time PHQ-9 Depression Total Score: 025 6:58 PM EDT PHQ-2 Depression Total Score: 07/14/20 25 6:58 PM EDT documented as of this encounter Care Teams Glass Pulverizer Equipment Operator Relationship Specialty Start Date End Date Deven Valentine DO [address] [place] [address], 2nd [place] [address] PCP - General Internal Medicine 04/16/22 Lisandro Marvin MD [address] [place] [address] Historical LMR Provider 08/31/17 Theresa Guzman MD [address] [place] [address] Historical LMR Provider 08/31/17 Deven Valentine DO [address] [place] [address], 2nd [place] [address] [email or web address] Insurance Assigned Provider 02/14/25 documented as of this encounter Additional Source Comments The information contained in this document represents components of the legal health record. It is not the complete legal health record.[facility]
--- OUTSIDE RECORDS SUMMARY | 2025-08-09 13:12 | XMS_ITS | Encounter Summary ---
Author Organization [facility] Address [address] [place] [address] [place] [address] Phone Care Team Providers Care Automobile Salesman Name Role Phone Theresa Guzman MD Primary Care Provider + Meño Jeffers MD Unavailable Diya Munguia MD Unavailable Anup Zavaleta DO Unavailable [phone] Lisandro Marvin MD Unavailable Musa Rivera MD Unavailable Erwin Stafford NP Unavailable Theresa Guzman MD Unavailable Aram Kerr MD Unavailable [phone] Marlon Ramirez MD Unavailable Deven Valentine DO Primary Care Provider Deven Valentine DO Unavailable [phone] Encounter Details Date Type Department Care Team (Late st Contact Info) Description 01/10/2018 Ancillary Orders [facility] Department 30 [place] [address] Theresa Guzman MD 17 [place] [address] Breast screening Social History Tobacco Use Types Packs/Day Years Used Date Smoking Tobacco: Former Comments Unknown Sex and Gender Information Value [...] st Contact Info) Description 04/28/2025 Procedure Pass [address] [place] [address] 09/01/2025 1:00 PM EDT Office Visit [facility] [address] [facility] [address] [place] [address] Pascale Marques MD [address] [facility] [address] [place] [address] [email or web address] 09/28/2025 8:00 AM EST Office Visit [facility] [address] [place] [address] Deven Valentine DO [address] [place] [address], 2nd [place] [address] 10/12/2025 7:40 AM EST Office Visit [facility] [address] [place] [address] 3rd Floor, [address] [place] [address] Que Flores MD [address] [facility], [address] [place] [address] 11/26/2025 10:30 AM EST Appointment [address] [place], [place] [address] Sridhar Chase MD [address] [place] [address], [address] [place] [address] [email or web address] documented as of this encounter Results * BI MAMMOGRAM SCREENING WITH TOMOSYNTHESIS WITH CAD (BILATERAL) (01/13/2018 3:00 PM EST) Anatomical Region Laterality Modality Breast Left, Breast Right, Breast Bilateral Bila teral Mammography 01/14/2018 7:22 AM EST Impressions 01/14/2018 7:28 AM EST No mammographic evidence of malignancy. Recommend routine annual surveillance. BI-RADS CATEGORY: 1 - Negative. DENSITY: There are scattered fibroglandular densities. POS - CDHMAMA Narrative 01/14/2018 7:28 AM EST 52-year-old female with no current breast symptoms. Comparison made to previous on 12/24/2016 and as far back as 01/31/2011. Interpretation made in conjunction with computer-aided detection and tomosynthesis. There are scattered areas of fibroglandular density. There are no suspicious masses, areas of architectural distortion, or suspicious clusters of microcalcifications. Procedure Note Jenn Hatch MD - 01/14/2018 52-year-old female with no current breast symptoms. Comparison made toprevious on 12/24/2016 and as far back as 01/31/2011. Interpretation madein conjunction with computer-aided detection and tomosynthesis. There are scattered areas of fibroglandular density. There are no suspicious masses, areas of architectural distortion, orsuspicious clusters of microcalcifications. IMPRESSION: No mammographic evidence of malignancy. Recommend routine annualsurveillance. BI-RADS CATEGORY: 1 - Negative. DENSITY: There are scattered fibroglandular densities. POS - CDHMAMA us Theresa Guzman MD IMG MG EXAMS Final Re sult documented in this encounter Visit Diagnoses Diagnosis Breast screening Breast screening, unspecified Breast screening Breast screening, unspecified documented in this encounter Additional Health Concerns Infection Onset Date Last Indicated Resolved Time CoV-Risk 12/22/2024 12/22/2024 12/22/2024 2:11 PM EST COVID-19 12/22/2024 12/22/2024 01/12/2025 1:23 AM EST documented as of this encounter Care Teams Automobile Salesman Relationship Specialty Start Date End Date Theresa Guzman MD [address] [place] [address] PCP - General 05/11/14 04/15/22 Deven Valentine DO [address] [place] [address], 2[address] [place] [address] PCP - General Internal Medicine 04/16/22 Meño Jeffers MD [address] [place] [address] 1st Floor -[address] [place] [address] Historical LMR Provider 08/31/17 2 Diya Munguia MD [address] [place] [address] Historical LMR Provider 08/31/17 2 Anup Zavaleta DO [address] [place] [address] Historical LMR Provider 08/31/17 11/18/21 Lisandro Marvin MD [address] [place] [address] Historical LMR Provider 08/31/17 Musa Rivera MD [address] [facility] [address] [place] [address] Historical LMR Provider 08/31/17 2 Erwin Stafford NP [address] [place] [address] 2-1 [place] [phone] Historical LMR Provider 08/31/17 2 Theresa Guzman MD [address] [place] [address] Historical LMR Provider 08/31/17 Aram Kerr MD 22 [facility] 102 [place] [address] Historical LMR Provider 08/31/17 11/18/21 Marlon Ramirez MD [address] [place] [address] Historical LMR Provider 08/31/17 2 Deven Valentine DO [address] [place] [address] Insurance Assigned Provider 02/14/25 documented as of this encounter Additional Source Comments The information contained in this document represents components of the legal health record. It is not the complete legal health record.[facility]
--- OUTSIDE RECORDS SUMMARY | 2025-08-09 13:12 | XMS_ITS | Encounter Summary ---
Author Organization [facility] Address [address] [place] [address] [place] [address] Phone Care Team Providers Care Computer Publisher Name Role Phone Theresa Guzman MD Primary Care Provider + Meño Jeffers MD Unavailable Diya Munguia MD Unavailable Anup Zavaleta DO Unavailable [phone] Lisandro Marvin MD Unavailable Musa Rivera MD Unavailable Erwin Stafford NP Unavailable [phone] Theresa Guzman MD Unavailable [phone] Aram Kerr MD Unavailable Marlon Ramirez MD Unavailable [phone] Deven Valentine DO Primary Care Provider Deven Valentine DO Unavailable [phone] Encounter Details Date Type Department Care Team (Late st Contact Info) Description 03/28/2021 Procedure Pass [facility] Admitting Dept Virtual Department 30 [place] [address] Social History Tobacco Use Types Packs/Day Years [...] st Contact Info) Description 04/28/2025 Procedure Pass [address] [place] [address] 09/01/2025 1:00 PM EDT Office Visit [facility] [address] [facility] [address] [place] [address] Pascale Marques MD [address] [place] [address] [email or web address] 09/28/2025 8:00 AM EST Office Visit [facility] [address] [place] [address] Deven Valentine DO [address] [place] [address], 2nd [place] [address] 10/12/2025 7:40 AM EST Office Visit [facility] [address] [place] [address] 3rd Floor, [address] [place] [address] Que Flores MD [address] [place] [address], [address] [place] [address] 11/26/2025 10:30 AM EST Appointment [address] [place] [address] Sridhar Chase MD 22 [facility], [address] [place] [address] documented as of this encounter Visit Diagnoses Not on filedocumented in this encounter Additional Health Concerns Infection Onset Date Last Indicated Resolved Time CoV-Risk 12/22/2024 12/22/2024 12/22/2024 2:11 PM EST COVID-19 12/22/2024 12/22/2024 01/12/2025 1:23 AM EST documented as of this encounter Care Teams Computer Publisher Relationship Specialty Start Date End Date Theresa Guzman MD [address] [place] [address] PCP - General 05/11/14 04/15/22 Deven Valentine DO [address] [place] [address], 2nd [place] [address] PCP - General Internal Medicine 04/16/22 Meño Jeffers MD [address] [place] [address] [address] [address] Historical LMR Provider 08/31/17 2 Diya Munguia MD [facility] [place] [address] Historical LMR Provider 08/31/17 2 Anup Zavaleta DO 22 [facility] [address] [place] [address] Historical LMR Provider 08/31/17 11/18/21 Lisandro Marvin MD [address] [place] [address] [email or web address] Historical LMR Provider 08/31/17 Musa Rivera MD 3500 [facility] 201 [place] [address] Historical LMR Provider 08/31/17 2 Erwin Stafford NP [address] [place] [address] [address] Historical LMR Provider 08/31/17 2 Theresa Guzman MD [address] [place] [address] [email or web address] Historical LMR Provider 08/31/17 Aram Kerr MD [address] [place] [address] [email or web address] Historical LMR Provider 08/31/17 11/18/21 Marlon Ramirez MD [address] [place] [phone] Historical LMR Provider 08/31/17 2 Deven Valentine DO [address] [place] [address] Insurance Assigned Provider 02/14/25 documented as of this encounter Additional Source Comments The information contained in this document represents components of the legal health record. It is not the complete legal health record.[facility]
--- OUTSIDE RECORDS SUMMARY | 2025-08-09 13:12 | XMS_ITS | Encounter Summary ---
Author Organization [facility] Address [address] [place] [address] Care Team Providers Care Legal Process Specialist Name Role Phone Theresa Guzamn MD Primary Care Provider + Encounter Details Date Type Department Care Team (Late Contact Info) Description 03/09/2025 Scanned Document [facility] [address] [address] Kraig Stark MD [address] [place] [phone] Social History Tobacco Use Types Packs/Day Years [...] Support [facility] [address] [phone] Kraig Stark MD [address] [place] [phone] Peg Cid Au.D [address] [place] [phone] documented as of this encounter Visit Diagnoses Not on filedocumented in this encounter Care Teams Legal Process Specialist Relationship Specialty Start Date End Date Theresa Guzman MD 6 [place] [address] PCP - General Family Medicine 09/15/21 documented as of this encounter
--- OUTSIDE RECORDS SUMMARY | 2025-08-09 13:12 | XMS_ITS | Encounter Summary ---
Author Organization [facility] Address [address] [place] [address] [place] [address] Phone Care Team Providers Care Sample Selector Name Role Phone Theresa Guzman MD Primary Care Provider + Meño Jeffers MD Unavailable [phone] Diya Munguia MD Unavailable Anup Zavaleta DO Unavailable Lisandro Marvin MD Unavailable Musa Rivera MD Unavailable Erwin Stafford NP Unavailable Theresa Guzman MD Unavailable [phone] Aram Kerr MD Unavailable Marlon Ramirez MD Unavailable [phone] Deven Valentine DO Primary Care Provider Deven Valentine DO Unavailable [phone] Encounter Details Date Type Department Care Team (Late st Contact Info) Description 11/19/2018 Ancillary Orders [facility] Department [address] [place] [address] Theresa Guzman MD 17 [place] [address] Breast screening Social History Tobacco Use Types [...] st Contact Info) Description 04/28/2025 Procedure Pass [address] [place] [address] 09/01/2025 1:00 PM EDT Office Visit [facility] 850 [facility] [address] [place] [address] Pascale Marques MD 60 [facility] [address] [place] [address] [email or web address] 09/28/2025 8:00 AM EST Office Visit [facility] [address] [place] [address] Deven Valentine DO [address] [place] [address], 2nd [place] [address] 10/12/2025 7:40 AM EST Office Visit [facility] [address] [place] [address] 3rd Floor, [address] [place] [address] Que Flores MD 22 [facility], [address] [place] [address] 11/26/2025 10:30 AM EST Appointment [address] [place] [address] Sridhar Chase MD 22 [facility], [address] [place] [address] [email or web address] Scheduled Orders Name Type Priority Associated Diagnoses Orde r Schedule Mammogram Screening (Bilateral) Imaging Routine Breast screening Expected: 11/19/2018, Expires: 11/19/2020 documented as of this encounter Visit Diagnoses Diagnosis Breast screening Breast screening, unspecified documented in this encounter Additional Health Concerns Infection Onset Date Last Indicated Resolved Time CoV-Risk 12/22/2024 12/22/2024 12/22/2024 2:11 PM EST COVID-19 12/22/2024 12/22/2024 01/12/2025 1:23 AM EST documented as of this encounter Care Teams Sample Selector Relationship Specialty Start Date End Date Theresa Guzman MD [address] [place] [address] PCP - General 05/11/14 04/15/22 Deven Valentine DO [address] [place] [address], 2nd [place] [address] PCP - General Internal Medicine 04/16/22 Meño Jeffers MD [address] [place] [address] 1st [address] [place] [address] Historical LMR Provider 08/31/17 2 Diya Munguia MD [address] [place] [address] Historical LMR Provider 08/31/17 2 Anup Zavaleta DO 22 [facility] [address] [place] [address] Historical LMR Provider 08/31/17 11/18/21 Lisandro Marvin MD [address] [place] [address] Historical LMR Provider 08/31/17 Musa Rivera MD [address] [place] [address] Historical LMR Provider 08/31/17 2 Erwin Stafford NP [address] [place] [address] [phone] Historical LMR Provider 08/31/17 2 Theresa Guzman MD [address] [place] [address] Historical LMR Provider 08/31/17 Aram Kerr MD 22 [facility], [address] [place] [address] Historical LMR Provider 08/31/17 11/18/21 Marlon Ramirez MD [address] [place] [phone] Historical LMR Provider 08/31/17 2 Deven Valentine DO [address] [place] [address], 2nd [place] [address] [email or web address] Insurance Assigned Provider 02/14/25 documented as of this encounter Additional Source Comments The information contained in this document represents components of the legal health record. It is not the complete legal health record.[facility]
--- OUTSIDE RECORDS SUMMARY | 2025-08-09 13:12 | XMS_ITS | Encounter Summary ---
Author Organization [facility] Address 399 [facility] [address] [place] [address] Phone Care Team Providers Care Terrazzo Polisher Name Role Phone Lisandro Marvin MD Unavailable [phone] Theresa Guzman MD Unavailable [phone] Deven Valentine DO Primary Care Provider Deven Valenitne DO Unavailable [phone] Encounter Details Date Type Department Care Team (Late st Contact Info) Description 04/16/2022 Procedure Pass [facility] - [address] [address] Social History Tobacco Use Types Packs/Day Years Used Date Smoking Tobacco: Former Cigarettes 1 14 1 979 - 1992 Smokeless Tobacco: Never Alcohol Use Standard Drinks/Week Comments Yes 0 (1 standard drink = 0.6 oz pur e alcohol) 1 per day now, cut back Child or Family Care Answer Date Record ed Do you have problems with on e of the following making it difficult for you to work, study, or receive health care? No 04/16/2022 Education Answer Date Recorded Are you interested in help w ith more adult education (for example, completing high school, GED, job training, learning the Spanish language, technical skills, or developing parenting skills)? No 04/16/2022 Food Answer Date Recorded Within the past [...] basis, and looking for work? Yes 04/16/2022 Comments No Sex and Gender Information Value [...] st Contact Info) Description 04/28/2025 Procedure Pass [facility] - [address] [place] [address] 09/01/2025 1:00 PM EDT Office Visit [facility] [address] [address] Pascale Marques MD 60 [facility] 11 [place] [address] [email or web address] 09/28/2025 8:00 AM EST Office Visit [facility] [address] [place] [address] Deven Valentine DO 170 [facility], 2nd [place] [address] 10/12/2025 7:40 AM EST Office Visit [facility] [address] [place] [address] 3rd Floor, [address] [place] [address] Que Flores MD [address] [place] [address], [address] [place] [address] 11/26/2025 10:30 AM EST Appointment [address] [place] [address] Sridhar Chase MD [address] [place] [address], [address] [place] [address] documented as of this encounter Visit Diagnoses Not on filedocumented in this encounter Additional Health Concerns Infection Onset Date Last Indicated Resolved Time CoV-Risk 12/22/2024 12/22/2024 12/22/2024 2:11 PM EST COVID-19 12/22/2024 12/22/2024 01/12/2025 1:23 AM EST Assessment Noted Time PHQ-9 Depression Total Score: 20 022 3:45 PM EDT PHQ-2 Depression Total Score: 5 04/16/20 22 3:45 PM EDT documented as of this encounter Care Teams Terrazzo Polisher Relationship Specialty Start Date End Date Deven Valentine DO [address] [place] [address], 2nd [facility] [place] [address] PCP - General Internal Medicine 04/16/22 Lisandro Marvin MD [address] [place] [address] [email or web address] Historical LMR Provider 08/31/17 Theresa Guzman MD [address] [place] [address] [email or web address] Historical LMR Provider 08/31/17 Deven Valentine DO [address] [place] [address], 2nd [place] [address] [email or web address] Insurance Assigned Provider 02/14/25 documented as of this encounter Additional Source Comments The information contained in this document represents components of the legal health record. It is not the complete legal health record.[facility]
--- OUTSIDE RECORDS SUMMARY | 2025-08-09 13:12 | XMS_ITS | Encounter Summary ---
Author Organization [facility] Address [address] [place] [address] [place] [address] Phone Care Team Providers Care Laundry Equipment Operator Name Role Phone Theresa Guzman MD Primary Care Provider + Meño Jeffers MD Unavailable RendonDiya Nascimento MD Unavailable Anup Zavaleta DO Unavailable Lisandro Marvin MD Unavailable Musa Rivera MD Unavailable Erwin Stafford NP Unavailable Theresa Guzman MD Unavailable Aram Kerr MD Unavailable [phone] Marlon Ramirez MD Unavailable [phone] Deven Valentine DO Primary Care Provider Deven Valentine DO Unavailable [phone] Encounter Details Date Type Department Care Team (Late st Contact Info) Description 03/04/2018 Transcribe Orders [facility] [address] [place] [address] Lisandro Marvin MD 10 [facility] 2nd [place] [address] Social History Tobacco Use Types Packs/Day Years Used Date Smoking Tobacco: Former Comments No Sex and Gender Information Value [...] Contact Info) Description 04/28/2025 Procedure Pass [facility] - [address] [place] [address] 09/01/2025 1:00 PM EDT Office Visit [facility] 850 [facility] [address] [place] [address] Pascale Marques MD 60 [facility] [address] [place] [address] [email or web address] 09/28/2025 8:00 AM EST Office Visit [facility] [address] [place] [address] Deven Valentine DO [address] [place] [address], 2nd [place] [address] 10/12/2025 7:40 AM EST Office Visit [facility] [address] [place] [address] 3rd Floor, [address] [place] [address] Que Flores MD 22 [facility], [address] [place] [address] 11/26/2025 10:30 AM EST Appointment [address] [place] [address] Sridhar Chase MD 22 [facility], [address] [place] [address] [email or web address] documented as of this encounter Visit Diagnoses Not on filedocumented in this encounter Additional Health Concerns Infection Onset Date Last Indicated Resolved Time CoV-Risk 12/22/2024 12/22/2024 12/22/2024 2:11 PM EST COVID-19 12/22/2024 12/22/2024 01/12/2025 1:23 AM EST documented as of this encounter Care Teams Laundry Equipment Operator Relationship Specialty Start Date End Date Theresa Guzman MD [address] [place] [address] PCP - General 05/11/14 04/15/22 Deven Valentine DO [address] [place] [address], 2nd [place] [address] PCP - General Internal Medicine 04/16/22 Meño Jeffers MD [address] [place] [address] 1st [address] [place] [address] Historical LMR Provider 08/31/172 2 Diya Munguia MD [address] [place] [address] Historical LMR Provider 08/31/17 2 Anup Zavaleta DO 22 [facility] [address] [place] [address] Historical LMR Provider 08/31/17 11/18/21 Lisandro Marvin MD [address] [place] [address] Historical LMR Provider 08/31/17 Musa Rivera MD [address] [place] [address] Historical LMR Provider 08/31/17 2 Erwin Stafford NP [address] [place] [address] [phone] Historical LMR Provider 08/31/17 2 Theresa Guzman MD [address] [place] [address] Historical LMR Provider 08/31/17 Aram Kerr MD [address] [place] [address] Historical LMR Provider 08/31/17 11/18/21 Marlon Ramirez MD [address] [place] [phone] Historical LMR Provider 08/31/17 2 Deven Valentine DO [address] [place] [address] Insurance Assigned Provider 02/14/25 documented as of this encounter Additional Source Comments The information contained in this document represents components of the legal health record. It is not the complete legal health record.[facility]
--- OUTSIDE RECORDS SUMMARY | 2025-08-09 13:12 | XMS_ITS | Encounter Summary ---
Author Organization [facility] Address 399 [facility] [address] [place] [address] Phone Care Team Providers Care Metalworking Specialist Name Role Phone Lisandro Marvin MD Unavailable [phone] Theresa Guzman MD Unavailable [phone] Deven Valentine DO Primary Care Provider Deven Valentine DO Unavailable [phone] Encounter Details Date Type Department Care Team (Late st Contact Info) Description 02/04/2024 Procedure Pass Non-Invasive Cardiology 30 [place] [address] Social History Tobacco Use Types Packs/Day Years [...] high school, GED, job training, learning the Khmer language, technical skills, or developing parenting skills)? [...] ecorded Denied Basic Needs Not on file 01/21/2024 In the past 12 months have y ou been in a relationship with a person who hurts, threatens, or tries to control you? No 01/21/2024 Worried food would run out Not on file 01/20 In the past 12 months have y ou been in a relationship with a person who hurts, threatens, or tries to control you? No 01/21/2024 Comments No Sex and Gender Information Value [...] st Contact Info) Description 04/28/2025 Procedure Pass [address] [place] [address] 09/01/2025 1:00 PM EDT Office Visit [facility] 850 [facility] [address] [place] [address] Pascale Marques MD 60 [facility] [address] [place] [address] [email or web address] 09/28/2025 8:00 AM EST Office Visit [address] [place] [address] Deven Valentine DO [address] [place] [address], 2nd [place] [address] 10/12/2025 7:40 AM EST Office Visit [facility] [address] [place] [address] 3rd Floor, [address] [place] [address] Que Flores MD [address] [place] [address], [address] [place] [address] 11/26/2025 10:30 AM EST Appointment [address] [place] [address] Sridhar Chase MD 22 [facility], [address] [place] [address] documented as of this encounter Visit Diagnoses Not on filedocumented in this encounter Additional Health Concerns Infection Onset Date Last Indicated Resolved Time CoV-Risk 12/22/2024 12/22/2024 12/22/2024 2:11 PM EST COVID-19 12/22/2024 12/22/2024 01/12/2025 1:23 AM EST Assessment Noted Time PHQ-9 Depression Total Score: 12 024 9:02 AM EDT PHQ-2 Depression Total Score: 4 01/21/20 24 9:02 AM EDT documented as of this encounter Care Teams Metalworking Specialist Relationship Specialty Start Date End Date Deven Valentine DO [address] [place] [address] PCP - General Internal Medicine 04/16/22 Lisandro Marvin MD [address] [place] [address] Historical LMR Provider 08/31/17 Theresa Guzman MD [address] [place] [address] Historical LMR Provider 08/31/17 Deven Valentine DO [address] [place] [address] Insurance Assigned Provider 02/14/25 documented as of this encounter Additional Source Comments The information contained in this document represents components of the legal health record. It is not the complete legal health record.[facility]
--- OUTSIDE RECORDS SUMMARY | 2025-08-09 13:12 | XMS_ITS | Encounter Summary ---
Author Organization [facility] Address [facility] [employer] [facility] [address] [place] [address] Phone Care Team Providers Care Complaint Investigations Officer Name Role Phone Theresa Guzman MD Primary Care Provider + Lisandro Marvin MD Unavailable [phone] Theresa Guzman MD Unavailable [phone] Deven Valentine DO Primary Care Provider Deven Valentine DO Unavailable [phone] Encounter Details Date Type Department Care Team (Late st Contact Info) Description 12/26/2021 Transcribe Orders Virtual Department 30 [place] [address] Ginger Garcia PA [address] [place] [address] History of recent fall (Primary Dx) Social History Tobacco Use Types [...] st Contact Info) Description 04/28/2025 Procedure Pass [address] [place] [address] 09/01/2025 1:00 PM EDT Office Visit [facility] 850 [facility] [address] [place] [address] Pascale Marques MD 60 [facility] [address] [place] [address] [email or web address] 09/28/2025 8:00 AM EST [facility] [address] [place] [address] Deven Valentine DO [address] [place] [address], 2nd [place] [address] 10/12/2025 7:40 AM EST Office Visit [facility] [address] [place] [address] 3rd Floor, [address] [place] [address] Que Flores MD [address] [place] [address], [address] [place] [address] 11/26/2025 10:30 AM EST Appointment [address] [place] [address] Sridhar Chase MD 22 [facility], [address] [place] [address] documented as of this encounter Results * XR FACIAL BONES 3 OR MORE VIEWS (12/26/2021 2:17 PM EST) Anatomical Region Laterality Modality Face Computed Radiogr aphy 12/26/2021 5:58 PM EST Impressions 12/26/2021 6:01 PM EST Unremarkable Narrative 12/26/2021 6:01 PM EST TECHNIQUE: XR FACIAL BONES 3 OR MORE VIEWS COMPARISON: None FINDINGS: There is no evidence of a facture. The paranasal sinuses are clear. Procedure Note Yazmin Newby MD - 12/26/2021 TECHNIQUE: XR FACIAL BONES 3 OR MORE VIEWS COMPARISON: None FINDINGS: There is no evidence of a facture. The paranasal sinuses are clear. IMPRESSION: Unremarkable Ginger BARRAZA IMG XR HEAD AND SHUNT SERIE S Final Result documented in this encounter Visit Diagnoses Diagnosis History of recent fall- Primary History of recent fall documented in this encounter Additional Health Concerns Infection Onset Date Last Indicated Resolved Time CoV-Risk 12/22/2024 12/22/2024 12/22/2024 2:11 PM EST COVID-19 12/22/2024 12/22/2024 01/12/2025 1:23 AM EST documented as of this encounter Care Teams Complaint Investigations Officer Relationship Specialty Start Date End Date Theresa Guzman MD [address] [place] [address] PCP - General 05/11/14 04/15/22 Deven Valentine DO [address] [place] [address], 2nd [place] [address] [email or web address] PCP - General Internal Medicine 04/16/22 Lisandro Marvin MD [address] [place] [address] [email or web address] Historical LMR Provider 08/31/17 Theresa Guzman MD [address] [place] [address] [email or web address] Historical LMR Provider 08/31/17 Deven Valentine DO [address] [place] [address] [email or web address] Insurance Assigned Provider 02/14/25 documented as of this encounter Additional Source Comments The information contained in this document represents components of the legal health record. It is not the complete legal health record.[facility]
--- OUTSIDE RECORDS SUMMARY | 2025-08-09 13:12 | XMS_ITS | Clinical Summary ---
Author Organization [facility] Address [address] [place] [id number] Phone Care Team Providers Care Brand Protection Manager Name Role Phone Lisandro Marvin MD Unavailable [phone] Theresa Guzman MD Unavailable [phone] Deven Valentine DO Primary Care Provider Deven Valentine DO Unavailable [phone] Allergies Active Allergy Reactions Criticality Noted Date Comments Fluticasone Propion-Salmeterol Shortness Of Breath High 08/01/2020 Yeast infection Moxifloxacin Diarrhea 08/01/2020 Propoxyphene N-Acetaminophen Shortness Of Breath High 08/01/2020 Iodinated Contrast Media Shortness Of Breath High 08/05/2012 UNSPECIFIED Contrast Media - difficulty breathing Lamotrigine Rash Low 08/01/2020 Latex Rash 08/05/2012 Oxycodone-Acetaminophen Shortness Of Breath High Sulfa (Sulfonamide Antibiotics) Hives 04/30/2016 Medications Lactobacillus acidophilus 1 billion cell Tab Take 1 tablet by mouth daily. Active Medication-Free Text QUERCTIN Active hwhuqno-ohdk-cmo tm-uved-lwijbn 100 mg-150 mg- 50 mg-150 mg Cap Take by mouth. Active albuterol 90 mcg/actuation inhaler Inhale 2 puffs into the lungs every 6 (six) hours as needed for wheezing. 18 g 3 023 Active levalbuterol (XOPENEX HFA) 45 mcg/actuation inhalerIndicatio ns:Moderate persistent asthma without complication Inhale 2 puffs into the lungs every 6 (six) hours as needed for wheezing or shortness of breath/dyspnea. 15 g 2 023 Active blood sugar diagnostic (ONETOUCH VERIO) Strp stripsIndication s:Type 2 diabetes mellitus without complication, without long-term current use of insulin USE 1 TEST STRIP EVERY MORNING DIRECTED 100 strip 024 Active fluticasone propionate (FLONASE) 50 mcg/actuation nasal spray 1 spray by Nasal route daily. 16 g 3 024 Active gabapentin (NEURONTIN) 100 MG capsule Take 100 mg by mouth daily. At night Active albuterol 2.5 mg /3 mL (0.083 %) nebulizer solutionIndicati ons:Chronic obstructive pulmonary disease, unspecified COPD type,Moderate persistent asthma without complication Take 3 mL (2.5 mg total) by nebulization every 6 (six) hours as needed. 300 mL 3 025 Active EPINEPHrine 0.3 mg/0.3 mL auto-injector Inject 0.3 mL (0.3 mg total) into the muscle once as needed for anaphylaxis. 1 each 2 025 Active estradioL (ESTRACE) 0.01 % (0.1 mg/gram) vaginal creamIndications :Atrophic vaginitis Place 1 g vaginally 2 (two) times a week. 42.5 g 1 025 Active clonazePAM (KLONOPIN) 1 MG tablet 025 Active divalproex (DEPAKOTE) [address] tablet 025 Active QUEtiapine (SEROQUEL) 25 MG tablet 025 Active prazosin (MINIPRESS) 1 MG capsule 025 Active lisinopril (PRINIVIL,ZESTRI L) 40 MG tablet 025 Active atenolol (TENORMIN) 50 mg tablet Take 1 tablet (50 mg total) by mouth daily. 90 tablet 3 025 Active lisinopril (PRINIVIL,ZESTRI L) 30 MG tablet Take 1 tablet (30 mg total) by mouth daily. 90 tablet 3 023 2024 Discontinued atenolol (TENORMIN) 50 mg tablet Take 50 mg by mouth daily. 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 For infection 20 tablet 025 2024 Active Problems Problem Noted Date Diagnosed Date Type 2 diabetes mellitus wit hout complication, without long-term current use of insulin 12/12/2023 Assessment & Plan (03/27/2025 1:36 PM EDT): Stable and well-controlled on current medication, no change at this time. Continue monitoring. Assessment & Plan (11/18/2024 11:34 PM EST): Stable and well-controlled without medication. Continue monitoring. Assessment & Plan (08/17/2024 10:12 PM EDT): Diabetes has been stable and well-controlled by diet. Continue monitoring. Assessment & Plan (12/12/2023 9:25 AM EST): She reports being more active with controlling diet in last week or so. Eats starchy foods and holidays on last A1c which contributed along with stress. Will hold off on meds and work on good diet and exercise. Weight loss counseling, encounter for 10/10/2023 Assessment & Plan (10/10/2023 10:58 PM EST): We discussed that weight has been stable, recommend calorie tracking first and foremost as well as checking labs including A1c and thyroid. Will continue monitoring. Swollen lymph nodes 10/10/2023 Assessment & Plan (10/10/2023 10:59 PM EST): Secondary to recent illness. Will continue monitoring but will likely slowly resolve on its own. Rosacea 08/21/2023 Assessment & Plan (08/21/2023 10:00 AM EDT): Managed with topical metronidazole. Skin lesion 04/24/2023 Assessment & Plan (04/24/2023 9:51 PM EDT): Patient with skin lesion on the left ear along parietal bone/mastoid process- slight bluish tent unclear if bruising versus actual skin lesion however has been present so suspect in the skin. Does seem to have subcutaneous component which is discrete and mobile. Possible lipoma versus enlarged blood vessel. Agree with dermatology recommendation for removal. Patient should follow-up with dermatology for biopsy and removal. 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 Originally thought to be recurrent shingles, now identified as recurrent HSV. Fully vaccinated with Shingrix x2. Has seen immunology with essentially normal workup. Their current recommendation is for an updated pneumonia vaccine w/ follow-up titers 4-6 weeks later. Most recent flare in June, no current symptoms. Discussed options including symptomatic and preventative tx. Given frequency and intensity of flares, suprressive tx is reasonable. Risks/benefits/side effects reviewed. Rx sent for daily lower dose Valtrex. Last hepatic panel WNL, continue routine monitoring. F/u PRN. Assessment & Plan (07/17/2023 12:06 PM EDT): W/ multiple episodes of shingles despite being fully vaccinated with Shingrix x2. Has seen immunology with essentially normal workup, confirms she has a follow-up with them later this fall. Current episode now nearly resolved - did respond to topical antifungals so intertrigo seems confirmed. Did have a sample taken in urgent care, results not available for review. Requesting PRN valtrex rx which seems reasonable. Pattern and rapid response to antivirals seems to suggest recurrent HSV2 as a more likely diagnosis. Rx provided for PRN use but, if possible, urged pt to be seen for viral culture with next occurrence. Rx Valtrex sent with frequency and duration required for shingles tx (TID x7 days), less may be effective if actually HSV (daily x5 days). Antibody testing for varicella (+), could consider HSV antibody testing if not able to culture a future flare. F/u PRN. Assessment & Plan (04/11/2023 10:30 PM EDT): Patient has had multiple episodes of shingles despite being fully vaccinated with Shingrix x2. May be related to increase in stress. Due to rapid recurrence x2 after already being vaccinated would recommend being seen by immunology for further evaluation and recommendations. Patient is agreeable to this plan. Referral placed today. Floaters, left 01/14/2023 Assessment & Plan (01/14/2023 10:21 AM EST): New onset of floaters Dr. Quiros- watching for flashes/curtain sign. Leg cramping 06/03/2022 Assessment & Plan (06/03/2022 10:21 PM EDT): Patient with leg cramping-we will trial vitamin B complex to see if it resolves. If not improving, consider further work-up. Multiple falls 04/20/2022 Assessment & Plan (09/09/2022 11:19 PM EDT): Established with PT, however delaying further treatment until cardiology work-up complete. Assessment & Plan (06/03/2022 10:14 PM EDT): Continues to have falls-CT head negative, discussed going to physical therapy to work on balance and gait training and hopefully can member identify sources of instability. Assessment & Plan (04/20/2022 11:58 AM EDT): Patient with multiple falls specifically to one side-we will check CT head to evaluate for possible history of stroke/TIA. Dysphagia 04/20/2022 Assessment & Plan (10/15/2022 10:13 PM EST): Improved since starting modification such as smaller bites, chin tuck, etc. Has been able to maintain her weight since last visit. Okay with holding off on swallow study for now, consider if worsening. Assessment & Plan (09/09/2022 10:13 PM EDT): Weight stable, not significantly changed from prior. Continue to monitor. Assessment & Plan (04/20/2022 12:01 PM EDT): Patient with complaint of dysphagia-order placed for barium swallow. May be related to scleroderma if that is her underlying conective tissues disorder, however, needs eval. Mixed connective tissue disease 04/16/2022 Moderate persistent asthma without complication 04/16/2022 Assessment & Plan (11/18/2024 11:33 PM EST): Refill albuterol, continue monitoring. Stable on current medication. Assessment & Plan (09/24/2023 12:47 PM EST): Mild asthma exacerbation which has not improved in several weeks. Will treat with prednisone burst. Assessment & Plan (08/21/2023 10:09 AM EDT): Exam limited today by nature of visit (virtual only). Resumed flovent BID at our last visit with improvement in chest heaviness and wheezing. CPM. She did confirm she was able to pick-up her albuterol inhaler. Seems her prior auth was rejected by her insurance so likely will not be able to refill. Rx sent for alternative levalbuterol. Assessment & Plan (07/17/2023 12:22 PM EDT): Mild-moderate persistent asthma now w/ chest heaviness and ?wheezing. Recently well controlled with albuterol/rescue inhaler only. Has a current rx for ICS inhaler but has not recently been using. No wheezing on exam, O2 sat reassuring at 98% on RA. No evidence of current asthma exacerbation. Plan to resume flovent inhaler, rx renewed. Follow-up in 4 weeks for asthma re-check, sooner PRN. Assessment & Plan (04/11/2023 10:35 PM EDT): Asthma has been borderline, using medication as prescribed. We will continue monitoring. ILD (interstitial lung disease) 04/16/2022 Allergic sinusitis 04/16/2022 Chest pain 08/28/2021 Assessment & Plan (10/15/2022 10:12 PM EST): Patient with continued chest pain, recommended she have nuclear stress test, if concerned should follow-up with cardiology to get more information about safety of test versus alternative options for evaluation. Still feel strongly that she needs cardiac evaluation due to prior elevated cardiac enzymes and ongoing chest pains. Assessment & Plan (09/09/2022 11:18 PM EDT): Chest pain has been stable, continue monitoring. Plan for stress test upcoming. Follow-up with cardiology as planned. Assessment & Plan (06/03/2022 10:14 PM EDT): Patient with continued chest pain has not been evaluated appropriately for possible CAD up till now. Advised patient needs follow-up with cardiology for discussion of cardiac cath due to prior positive troponin and ongoing chest pain and shortness of breath. Patient had episode of chest pain last night lasting about an hour with associated shortness of breath. Advised patient should this happen again she should go to the ER for emergent evaluation. She is in agreement with this plan. Assessment & Plan (04/20/2022 11:57 AM EDT): Patient with ongoing chest pain, shortness of breath worsened by exertion. Referral placed to cardiology for evaluation for possible diagnostic/interventional catheterization. Assessment & Plan (08/28/2021 9:22 AM EDT): Patient with hospitalization in May with elevated troponins and still hasn't been able to get a CT of the coronary arteries. Does have a strong family hx of CAD. Recommended she call her mineral wool insulation supervisor and see if this should be switched to a cath given the delay in imaging. Rapid cycling bipolar disorder 06/02/2021 Assessment & Plan (03/27/2025 1:26 PM EDT): Sees psychiatry, no change. Continue monitoring. COPD (chronic obstructive pulmonary disease) Assessment & Plan (03/27/2025 1:27 PM EDT): Stable and well-controlled with current medication, no changes. Continue monitoring. Assessment & Plan (11/18/2024 11:33 PM EST): Has been stable on current medication, continue monitoring. Assessment & Plan (07/17/2023 12:36 PM EDT): Mild COPD per spirometry (2018) w/ mild airflow obstruction. FEV1/FVC ratio 64%. W/ asthma overlap. Recent chest tightness, plan to resume Flovent w/ re-eval in 4 weeks. F/u sooner PRN. Malaise and fatigue 12/25/2019 Assessment & Plan (04/24/2023 9:58 PM EDT): Worsening malaise and fatigue of unknown cause. Will check labs to evaluate for metabolic causes, especially due to the rapidity of onset over the last several weeks to months. Orders placed as below. Assessment & Plan (12/20/2020 4:23 PM EST): Seems to be doing much better with her exercise plan. Continue to improve upon that. Remember to take albuterol with you with exercise. Assessment & Plan (08/02/2020 11:39 AM EDT): Recommend increased Exercise if possible. Assessment & Plan (12/25/2019 1:00 PM EST): Has been doing much better going up and down the hill around her house 2 miles every day. Recommend continue with this plan. Loud snoring 03/06/2019 Assessment & Plan (01/14/2023 1:47 PM EST): Loud snoring which has continued over time and is associated with unrefreshed sleep. Assessment & Plan (03/06/2019 8:29 AM EDT): She does snore at night and have excessive daytime somnolence. I have recommended that she try to lose the 10 pounds that she has gained. If she still has the symptoms it would make sense to proceed to a polysomnogram and sleep medicine services referral. SOB (shortness of breath) on exertion 01/31/2018 Assessment & Plan (04/30/2018 8:36 AM EDT): Advised patient if the chest tightness and shortness of breath with exertion are not relieved with her albuterol metered-dose inhaler which I have sent that she request a visit with her PCP to consider cardiac stress testing. Assessment & Plan (01/31/2018 4:51 PM EDT): We'll check full pulmonary function test with muscular testing. Checking blood test for rare genetic disorder of Pompe's disease which is a primary myopathy that affects the diaphragm and proximal muscles as both mother and daughter have the same complaint. Hypertension 01/30/2018 Assessment & Plan (11/18/2024 11:32 PM EST): Stable and well-controlled generally, continue monitoring. No change at this time. Assessment & Plan (08/17/2024 10:11 PM EDT): Blood pressure stable, continue monitoring. No change at this time. Assessment & Plan (04/11/2023 10:30 PM EDT): Stable and well-controlled, no change medication. Assessment & Plan (09/09/2022 9:43 PM EDT): Blood pressure well controlled today, no concerns, no need to change medication at this time. Continue to follow. Seasonal allergies 07/15/2013 Overview (01/01/2015): Seasonal allergy Assessment & Plan (07/17/2023 12:17 PM EDT): Hx of seasonal allergies. Unclear if current chest tightness related to recent humidity or change in season. Previously taking Zyrtec OTC w/ benefit, she will consider resuming. Continue trigger avoidance when possible, consider air filtration. F/u PRN. Adhesive capsulitis of shoulder 08/08/2012 Overview (01/01/2015): Frozen shoulder Irritable bowel syndrome 08/05/2012 Overview (01/01/2015): Irritable bowel syndrome Osteoarthritis 08/05/2012 Overview (01/01/2015): Osteoarthritis Resolved Problems Problem Noted Date Diagnosed Date Resolved Date Palpitations 04/16/2022 04/11/2023 Acute coronary syndrome 05/31/2021 06/0 11/2022 Assessment & Plan (10/19/2022 1:49 PM EST): She has a past medical history for acute coronary syndrome that was at outside hospital in [facility]. She was also upset that the records from her outside hospital were not present for review with Dr. Luque at the time of the visit with him. Those records are now available for review and upon reviewing those records it appears that they felt that she had an NSTEMI due to elevated troponins. She tells me that she had the option of whether going to [place] or [facility] and she states that she apparently made the wrong decision due to them not being unable to do the procedure. The transferring facility also reported that she was exposed to COVID for some reason she was transferred to another hospital to have a cardiac catheterization done however at that time it never took place for unknown reasons though the patient did try to explain this, she started to get upset and raise her voice in the office. Her questions were about doing a nuclear stress test and the effect that nuclear imaging would have on her. She had multiple concerns about receiving nuclear imaging material as she is allergic to gadolinium. I attempted to explain to her that the nuclear imaging material was unlikely to cause her any allergic reaction and that this enhancing material would likely be out of her system in 24 hours. She is very concerned that this material is going to cause her cancer and she reports that cancer runs high in her family. I told her that I did not know what the risk specifically was for developing cancer after receiving nuclear imaging. I tried to reassure her that I have never heard of anybody having cancer related to the nuclear imaging material. She also wants to know whether she should continue taking her statin and it was unclear to me what her cholesterol was prior to her taking a statin to determine whether she needed to continue taking this. The patient then became upset and started to raise her voice at me telling me that she is trying to go through her past history. It was explained to her that if she cannot have a conversation with me about this and then we could reschedule her with another provider who would be able to answer her questions more appropriately. The patient then became very upset and started to yell that we continue this visit and that we were not done. I then proceeded to exit the room and she insisted that I continue the appointment for which I responded with her to make an appointment with another provider at that time. We did not get to finish the conversation about her having her nuclear stress test. I did speak with her about her labs letting her know that they were okay but she was upset that no one called her to tell her that her labs were normal. She felt that this office was incompetent due to them not reporting back on her labs. She then stated that I was the worst nurse practitioner that she ever has seen that I should lose my medical license and that she would not be making another appointment At this point this visit would not be therapeutic and due to the patient's behavior felt unsafe in the room. Upon exiting the room the patient became very loud and started yelling and carrying out loud in the waiting area and she did not want to make another appointment at this time.. Asthma 08/08/2012 04/11/2023 Overview (01/01/2015): Asthma Assessment & Plan (08/28/2021 9:25 AM EDT): Recommend Flovent 44mcg during the winter months to avoid asthma exacerbation. Sounds very clear right now and I do not believe her symptoms currently are related to asthma. Assessment & Plan (12/20/2020 4:23 PM EST): Asthma-COPD overlap. Recommend resuming Flovent in addition to the Spiriva. The patient has been advised to take her albuterol as needed. Decreased O2 saturations are a late finding asthma exacerbations and she should therefore not delay. Assessment & Plan (08/02/2020 11:38 AM EDT): COPD asthma overlap syndrome. Will change her albuterol to levalbuterol. We will send Flovent. Assessment & Plan (12/25/2019 1:01 PM EST): Have a fixed defect on her last PFT consistent with a diagnosis of COPD or asthma overlap syndrome. Continue the albuterol as needed and I have asked her to restart the Spiriva. Assessment & Plan (03/06/2019 8:28 AM EDT): Recommend using albuterol prior to exercise. We will give her a sample of Spiriva. If that does not cause any adverse effect and does help her we will send a prescription. Assessment & Plan (04/30/2018 8:39 AM EDT): Exhaled nitric oxide checked to assess airway inflammation, mild to moderate at 20. Recommend restart Singulair and add Spiriva. Assessment & Plan (01/31/2018 4:50 PM EDT): Continue Singulair. Albuterol when necessary Fatigue 08/05/2012 04/24/2023 Overview (01/01/2015): Fatigue Sleep disorder 08/05/2012 09/17/2023 Overview (01/01/2015): Sleep disorder Encounters Date Type Department Care Team Description 08/05/[address] [place], [place] [address] Deven Valentine, DO Medication Refill 07/23/[address] [place] [address] Deven Valentine, DO Billing 07/21/[address] [place] [address] Landen, Lucina Care Coordination 07/19/2025 2:28 PM EDT - 07/19/2025 11:59 PM EDT Hospital Encounter [facility] [address] [place] [address] Barbara Rockwell MD Discharge Disposition: Home or Self Care 07/16/2025 10:40 AM EDT Telemedicine [facility] [address] [place] [address] Barbara Rockwell MD 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) 07/15/2025 4:30 PM EDT Telemedicine [facility] [address] [place] [address] Deven Valentine, Grief at loss of child (Primary Dx) 07/08/[address] [address] Lucina Schuster Care Coordination 07/06/2025 11:50 AM EDT - 07/06/2025 11:59 PM EDT Hospital Encounter [facility] [address] [place] [address] Deven Valentine, Discharge Disposition: Home or Self Care 07/02/[address] [address] Lucina Schuster Care Coordination 07/02/[address] [address] Carol Rodriguez Triage (Green + mental health concern ) from Last 3 Months Immunizations Immunization Administration Dates Next Due INFLUENZA, SPLIT VIRUS, TRIV ALENT W/ PRESERVATIVE IM 08/06/2014,07/28/2013 Influenza Quadrivalent Prese rvative Free IM 08/13/2022,08/30/2021,07/21/2020,08/03 Influenza, Unspecified Formulation 11/11/2011 Pneumococcal conjugate PCV20 10/16/2023 Pneumococcal polysaccharide PPSV23 11/11/1996 Pneumococcal, Unspecified Formulation 11/11/1996 Tdap 02/08/2022 Zoster recombinant 07/05/2019,05/02/2019 Family History Medical History Relation Comments abnormal cells Daughter Clotting disorder Father Coronary artery disease Father Crohn's disease Father Heart failure Father Breast cancer Maternal Aunt Coronary artery disease Mother Heart failure Mother Ovarian cancer Mother Other Unspecified Several family m embers diagnosed with Crohn's Relation Status Comments Daughter Abnormal Cervica l Cells Father Maternal Aunt Alive Mother Son Alive Unspecified Social History Tobacco Use Types Packs/Day Years Used Date Smoking Tobacco: Former Cigarettes 1 14 1 979 - 1992 Smokeless Tobacco: Never Tobacco Cessation:Counseling Given: Not Answered Alcohol Use Standard Drinks/Week Comments Yes 0 [...] Orientation Straight 08/09/2022 11 :26 AM EDT Last Filed Vital Signs Vital Sign Reading Time Taken Comments Blood Pressure 142/74 04/28/2025 9:40 AM EDT Pulse 87 03/30/2025 3:44 PM EDT Temperature 36.6 C (97.8 F) 03/30/2025 3:44 PM EDT Respiratory Rate 17 03/30/2025 3:44 PM EDT Oxygen Saturation 97% 03/30/2025 3:44 PM EDT Inhaled Oxygen Concentration - - Weight 80.7 kg (178 lb) 03/30/2025 3:44 PM EDT Height 179.1 cm (5' 10.5 ) 04/24/2024 11:10 AM E DT Body Mass Index 25.18 04/24/2024 11:10 AM EDT Plan of Treatment Upcoming Encounters Date Type Department Care Team (Late st Contact Info) Description 04/28/2025 Procedure Pass [facility] - [address] [place] [address] 09/01/2025 1:00 PM EDT Office Visit [facility] [address] [place] [phone] Pascale Marques MD [address] [place] [address] [email or web address] 09/28/2025 8:00 AM EST Office Visit [address] [place] [address] Deven Valentine DO [address] [facility] [address] [place] [address] 10/12/2025 7:40 AM EST Office Visit [facility] [address] [place] [address] [address], [address] [place] [address] Que Flores MD [address] [facility], [address] [place] [address] 11/26/2025 10:30 AM EST Appointment [facility] - [address] [place] [address] Sridhar Chase MD [address] [facility], [address] [place] [address] Health Maintenance Due Date Last Done Comments VALPROIC ACID (DEPAKENE) LEVEL 1965 HEPATITIS C SCREENING 1981 HIV ONE-TIME SCREENING (18-65 YEARS) 1981 HEPATITIS A VACCINES (1 of 2 - Risk 2-dose series) 1982 COLOGUARD 02/27/2008 COLONOSCOPY 02/27/2008 COLORECTAL CANCER SCREENING 02/27/2008 FIT TEST 02/27/2008 FOBT 02/27/2008 SIGMOIDOSCOPY 02/27/2008 VIRTUAL COLONOSCOPY 02/27/2008 RSV VACCINE (1 - Risk 60-74 years 1-dose series) 2023 DIABETIC EYE EXAM 12/12/2023 MAMMOGRAM 04/18/2025 04/18/2023, 06/0 05/2022, 03/20/2021, Additional history exists INFLUENZA VACCINE (#1) 2025 2, 08/30/2021, 07/21/2020, Additional history exists COVID-19 VACCINE ( season) 2025 02/15/2021 LIPID PANEL 10/13/2025 10/13/2024, 04/12, 08/13/2022 BLOOD PRESSURE 10/28/2025 04/28/2025 PAP SMEAR 12/18/2025 12/18/2022 HEMOGLOBIN A1C 01/06/2026 07/06/2025, 12/0 01/2024, 11/29/2023, Additional history exists DEPRESSION SCREENING 07/14/2026 07/14/2025, 07/14/20 CREATININE LEVEL 07/19/2026 07/19/2025, 01/2024, 04/23/2023, Additional history exists POTASSIUM LEVEL 07/19/2026 07/19/2025, 12/0 01/2024, 04/23/2023, Additional history exists Adult Td,Tdap Booster 02/09/2032 02/08/2022 ZOSTER VACCINES Completed 07/05/2019, 05/02/2019 PNEUMOCOCCAL VACCINES (50+ years) Completed 10/16/2023, 11/11/1996 SMOKING STATUS SCREENING (Once After 26 Yrs) Completed 07/15/2025 HIB VACCINES Aged Out No longer eligi ble based on patient's age to complete this topic MENINGOCOCCAL VACCINES (ACWY) Aged Out No longer eligible based on patient's age to complete this topic MENINGOCOCCAL VACCINES (B) Aged Out N o longer eligible based on patient's age to complete this topic Medical Devices Not on file Procedures Procedure Name Priority Date/Time Associated Diagnosis Comments IMMUNOGLOBULIN G Routine 07/19/2025 2:30 PM EDT 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 IMMUNOGLOBULIN A Routine 07/19/2025 2:30 PM EDT 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 COMPREHENSIVE METABOLIC PANEL Routine 07/19/2025 2:30 PM EDT 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 CBC AND DIFFERENTIAL Routine 07/19/2025 2:30 PM EDT 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 IMMUNOGLOBULIN M Routine 07/19/2025 2:30 PM EDT 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 Pneumococcus IgG antibody (23 serotypes) Routine 07/19/2025 2:30 PM EDT 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 25-OH VITAMIN D Routine 07/06/2025 11:51 AM EDT Vitamin D deficiency, unspecified HEMOGLOBIN A1C Routine 07/06/2025 11:51 AM EDT Type 2 diabetes mellitus without complication, without long-term current use of insulin LIPID PANEL Routine 10/13/2024 7:57 AM EST Type 2 diabetes mellitus without complication, without long-term current use of insulin BI MAMMOGRAM SCREENING WITH TOMOSYNTHESIS WITH CAD (BILATERAL) Routine 04/18/2023 9:40 AM EDT Encounter for screening mammogram for malignant neoplasm of breast PAP TEST Routine 12/18/2022 12:00 AM EST from Last 3 Months or Most Recently Relevant to Health Maintenance Results * (ABNORMAL) Comprehensive metabolic panel (07/19/2025 2:30 PM EDT) SODIUM 140 133 - 146 mmol/L [facility] POTASSIUM 4.2 3.3 - 5.1 mmol/L [facility] CHLORIDE 104 96 - 108 mmol/L [facility] CO2 23 21 - 35 mmol/L [facility] BUN 14 6 - 19 mg/dL [facility] CREATININE 0.70 0.5 - 1.5 mg/dL [facility] GLUCOSE 154(H) 70 - 99 mg/dL [facility] ALBUMIN 4.4 3.9 - 4.8 g/dL [facility] TOTAL PROTEIN 7.4 6.5 - 8.0 g/dL [facility] CALCIUM 9.9 8.4 - 10.3 mg/dL [facility] ALKALINE PHOSPHATASE 109 39 - 117 U/L [facility] TOTAL BILIRUBIN 0.3 0.0 - 1.2 mg/dL [facility] AST 21 0 - 37 U/L [facility] ALT 24 0 - 40 U/L [facility] GLOBULIN 3.0 1 - 4.8 g/dL [facility] EGFR 98 >59 mL/min/1.7 3m2 [facility] Comment:Estimated glomerular filtration rate calculated using the CKD-EPI refit equation. ANION GAP 17 10 - 20 mmol/L [facility] Blood 07/19/2025 2:30 PM EDT 07/19/2025 2:36 PM EDT us Barbara Rockwell MD LAB BLOOD ORDERABLES Final Re sult [facility] [address] [place] [address] * Pneumococcus IgG antibody (23 serotypes) (07/19/2025 2:30 PM EDT) Serotype 1 (1) 0.8 >=1.0 mcg/mL [facility] [address] Serotype 2 (2) 16.4 >=1.0 mcg/mL [facility] [address] Serotype 3 (3) 0.2 >=1.0 mcg/mL [facility] [address] Serotype 4 (4) 0.3 >=1.0 mcg/mL [facility] [address] Serotype 5 (5) 0.5 >=1.0 mcg/mL [facility] [address] Serotype 8 (8) 1.3 >=1.0 mcg/mL [facility] [address] Serotype 9N (9) 6.4 >=1.0 mcg/mL [facility] [address] Serotype 12F (12) 0.4 >=1.0 mcg/mL [facility] [address] Serotype 14 (14) 0.6 >=1.0 mcg/mL [facility] [address] Serotype 17F (17) 0.3 >=1.0 mcg/mL [facility] [address] Serotype 19F (19) 5.2 >=1.0 mcg/mL [facility] [address] Serotype 20 (20) 0.9 >=1.0 mcg/mL [facility] [address] Serotype 22F (22) 0.5 >=1.0 mcg/mL [facility] [address] Serotype 23F (23) 0.3 >=1.0 mcg/mL [facility] [address] Serotype 6B (26) 0.3 >=1.0 mcg/mL [facility] [address] Serotype 10A (34) 2.1 >=1.0 mcg/mL [facility] [address] Serotype 11A (43) 0.9 >=1.0 mcg/mL [facility] [address] Serotype 7F (51) 3.4 >=1.0 mcg/mL [facility] [address] Serotype 18C (56) 0.6 >=1.0 mcg/mL [facility] [address] Serotype 19A (57) 0.6 >=1.0 mcg/mL [facility] [address] Serotype 9V (68) 0.3 >=1.0 mcg/mL [facility] [address] Serotype 33F (70) 1.5 >=1.0 mcg/mL [facility] [address] Interpretation SEE NOTE [facility] [address] Comment: (NOTE) Evaluation of the immune response following pneumococcal vaccination can be assessed by measuring serotype-specific Streptococcus pneumonia IgG antibodies. Either of the following conditions is consistent with a normal response to Streptococcus pneumonia vaccination: 1. When comparing pre and post-vaccination samples, antibody concentrations increased by at least 2-fold for either >50% of serotypes in children <6 years of age or >70% of serotypes for individuals >6 years of age. 2. In either a pre- or post-vaccination sample, antibody concentrations >=1.0 mcg/mL for either >50% of serotypes for children <6 years of age or >70% of serotypes for individuals >6 years of age. Results >=1.0 mcg/mL or those showing a >=2-fold change are consistent with an immune response, but are not necessarily sufficient to provide protection against infection. ADDITIONAL INFORMATION This test was developed and its performance characteristics determined by [facility] in a manner consistent with CLIA requirements. This test has not been cleared or approved by the U.S. Food and Drug Administration. Blood 07/19/2025 2:30 PM EDT 07/19/2025 2:37 PM EDT us Barbara Rockwell MD LAB BLOOD ORDERABLES Final Re sult [facility] [place] [address] * CBC and differential (07/19/2025 2:30 PM EDT) WBC 8.54 4.00 - 11.00 K/uL [facility] RBC 4.69 4.00 - 5.20 M/uL [facility] HGB 14.3 12.0 - 16.0 g/dL [facility] HCT 43.3 36.0 - 46.0 % [facility] PLT 331 150 - 450 K/uL [facility] MCV 92.3 80.0 - 100.0 fL [facility] MCH 30.5 27.0 - 31.0 pg [facility] MCHC 33.0 32.0 - 36.0 g/dL [facility] RDW 12.8 11.5 - 14.5 % [facility] MPV 9.6 8.4 - 12.0 fL [facility] NRBC 0.00 0.00 /100 WBCs [facility] ABSOLUTE NRBC 0.00 0.00 K/uL [facility] DIFF METHOD Auto [facility] NEUTS 64.5 48.0 - 76.0 % [facility] LYMPHS 25.5 18.0 - 41.0 % [facility] MONOS 8.0 4.0 - 11.0 % [facility] EOS 1.1 0.0 - 5.0 % [facility] BASOS 0.5 0.0 - 1.5 % [facility] Granulocytes, immature (%) 0.4 0.0 - 0.9 % [facility] ABSOLUTE NEUTS 5.52 1.92 - 7.60 K/uL [facility] ABSOLUTE LYMPHS 2.18 0.72 - 4.10 K/uL [facility] ABSOLUTE MONOS 0.68 0.16 - 1.10 K/uL [facility] ABSOLUTE EOS 0.09 0.00 - 0.50 K/uL [facility] ABSOLUTE BASOS 0.04 0.00 - 0.15 K/uL [facility] Granulocytes, immature 0.03 0.00 - 0.09 K/uL [facility] Blood 07/19/2025 2:30 PM EDT 07/19/2025 2:36 PM EDT us Barbara Rockwell MD LAB BLOOD ORDERABLES Final Re sult Performing Organization Address [facility] de Phone Number [address] [address] * Immunoglobulin A (07/19/2025 2:30 PM EDT) IgA 144 70 - 400 mg/dL [facility] Blood 07/19/2025 2:30 PM EDT 07/19/2025 2:36 PM EDT us Barbara Rockwell MD LAB BLOOD ORDERABLES Final Re sult Performing Organization Address [facility] Co de Phone Number [address] [address] * Immunoglobulin M (07/19/2025 2:30 PM EDT) IMMUNOGLOBULIN M 142 40 - 230 mg/dL [facility] Blood 07/19/2025 2:30 PM EDT 07/19/2025 2:36 PM EDT us Barbara Rockwell MD LAB BLOOD ORDERABLES Final Re sult Performing Organization Address [facility]/ZIP Co de Phone Number [address] [address] * Immunoglobulin G (07/19/2025 2:30 PM EDT) IMMUNOGLOBULIN G 734 700 - 1,600 mg/dL [facility] Blood 07/19/2025 2:30 PM EDT 07/19/2025 2:36 PM EDT us Barbara Rockwell MD LAB BLOOD ORDERABLES Final Re sult Performing Organization Address City/[facility]/ZIP Co de Phone Number [address] [address] * 25-OH vitamin D (07/06/2025 11:51 AM EDT) 25 OH VIT D (TOTAL) 33 30 - 60 ng/mL [facility] Blood 07/06/2025 11:5 1 AM EDT 07/06/2025 11:56 AM EDT Deven Valentine DO LAB BLOOD ORDERABLES Fi nal Result Performing Organization Address [facility] Co de Phone Number [address] [address] * (ABNORMAL) Hemoglobin A1c (07/06/2025 11:51 AM EDT) HEMOGLOBIN A1C 7.4(H) 4.3 - 5.8 % [facility] Blood 07/06/2025 11:5 1 AM EDT 07/06/2025 11:56 AM EDT Deven Valentine DO LAB BLOOD ORDERABLES Fi nal Result Performing Organization Address [facility] Co de Phone Number [address] [address] * (ABNORMAL) Lipid panel (10/13/2024 7:57 AM EST) Pathologist [facility] HDL 76 mg/dL [facility] Comment: Interpretation <40 mg/dL: Low HDL cholesterol (major risk factor for CHD) Greater than or equal to 60 mg/dL: High HDL cholesterol ( negative risk factor for CHD) HDL - cholesterol is affected by a number of factors, e.g. smoking, excerise, hormones, sex and age. CHOLESTEROL 236 0 - 240 mg/dL [facility] TRIGLYCERIDES 78 30 - 160 mg/dL [facility] LDL 144(H) 50 - 129 mg/dL [facility] Comment: LDL levels in terms of risk for coronary heart disease: <100 mg/dL: Optimal 100-129 mg/dL: Near or above optimal 130-159 mg/dL: Borderline high 160-189 mg/dL: High >190 mg/dL: Very High CARDIAC RISK RATIO 3.1(L) 3.3 - 4.4 [facility] Blood 10/13/2024 7:57 AM EST 10/13/2024 8:21 AM EST us Deven Valentine DO LAB BLOOD ORDERABLES Fi nal Result [facility] [address] [place] [address] * BI MAMMOGRAM SCREENING WITH TOMOSYNTHESIS WITH CAD (BILATERAL) (04/18/2023 9:40 AM EDT) Anatomical Region Laterality Modality Breast Left, Breast Right, Breast Bilateral Bila teral Mammography 04/18/2023 12:4 7 PM EDT Impressions 04/18/2023 12:49 PM EDT No findings suspicious for malignancy are identified. In the absence of a worrisome palpable abnormality, annual screening mammography is recommended. BI-RADS CATEGORY: 1 - Negative. DENSITY: There are scattered fibroglandular densities. Narrative 04/18/2023 12:49 PM EDT AVAILABLE COMPARISON: 05/30/2022 through 01/11/2004 Bilateral 3-D tomosynthesis with 2-D reconstructions in the CC and MLO projection. Computer-aided detection system was utilized. No new mass, asymmetry, architectural distortion or suspicious calcifications have become apparent in either breast. Procedure Note Roberto Jain MD - 04/18/2023 AVAILABLE COMPARISON: 05/30/2022 through 01/11/2004 Bilateral 3-D tomosynthesis with 2-D reconstructions in the CC and MLOprojection. Computer-aided detection system was utilized. No new mass, asymmetry, architectural distortion or suspiciouscalcifications have become apparent in either breast. IMPRESSION: No findings suspicious for malignancy are identified. In the absence of aworrisome palpable abnormality, annual screening mammography isrecommended. BI-RADS CATEGORY: 1 - Negative. DENSITY: There are scattered fibroglandular densities. Sridhar Chase MD IMG MG EXAMS Final Result * Pap Test (12/18/2022 12:00 AM EST) 12/18/2022 12/19/2022 9:5 4 AM EST Narrative SEE NARRATIVE - 12/24/2022 3:55 [place] [address] Instructor Product Inspection: Mari Jamison MD CLOCK REPAIR TECHNICIAN Cytology Report FINAL DIAGNOSIS A. PAP SMEAR ([facility]REPATH) CE: SPECIMEN ADEQUACY: Satisfactory for evaluation; transformation zone present. INTERPRETATION: NEGATIVE FOR INTRAEPITHELIAL LESION OR MALIGNANCY. Electronically Signed Out By: Avel Weller MD By his/her signature above, the pathologist listed as making the Final Diagnosis certifies that he/she has personally reviewed this case and confirmed or corrected the diagnosis. The Pap test is a screening test primarily for squamous cancers and precursors and has associated false-negative and false-positive results. New technologies such as liquid-based preparations may decrease but will not eliminate all false-negative results. Regular sampling and follow-up of unexplained clinical signs and symptoms are recommended to minimize false negative results. PROCEDURES/ADDENDA HPV Testing (Requested) Ordered Date: 12/19/2022 A. PAP SMEAR ([facility]REPATH) CE: Human Papilloma Virus Test NEGATIVE for high-risk Human Papilloma Virus types 16, 18, 45 and the Other high risk probe set (Includes 31, 33, 35, 39, 51, 52, 56, 58, 59, 66, 68) Note: Testing performed by [facility] HR-HPV analysis. Clinical correlation is advised. This HPV test was performed at [facility], [address] [place] [address]. This test has been FDA approved for [facility] cervical cytology specimens. The accuracy and precision of this test for all other specimen sources has been verified in the Cytopathology Laboratory of the [facility] and has not been cleared or approved by the U.S. Food and Drug Administration. Clinical correlation is advised. CLINICAL HISTORY Date of Last Menstrual Period: Not Provided Menstrual History: Post Menopausal Treatment History: Cone Bx Other Clinical Conditions: Screening Pap SPECIMEN SOURCE A: PAP SMEAR ([facility]REPATH) CE Patient Name: JOSECARLOSMEREDITH. : 1965 (Age: 57) Sex: F Institution: [facility] Location: [facility] Date of Collection: 12/18/2022 Date of Reported: 12/24/2022 15:55 Results to: Sridhar Chase MD Sridhar Chase MD CYTOLOGY ORDERABLES Final Result SEE NARRATIVE from Last 3 Months or Most Recently Relevant to Health Maintenance Insurance MEDICARE PART A & B [facility] MEDICARE PART A & B MEDICARE PART A & B Member Subscriber Plan / Payer (Ef fective 2022-Present) Name:Meredith Sears Member ID:[id number] Relation to Subscriber:Self Name:Meredith Sears Subscriber ID:[id number] Payer ID:[id number] Group ID:Not on file Type:Medicare Address: [address] [facility] MEDICARE PART A & B Member Subscriber Plan / Payer (Ef fective 2022-) Name:Meredith Sears Member ID:[id number] Relation to Subscriber:Self Name:Meredith Sears Subscriber ID:[id number] Payer ID:[id number] Group ID:Not on file Type:Medicare Address: [facility] [employer] [facility] [facility] [address] [place] [phone] [facility] MEDICARE PART A & B [facility] Care Teams Brand Protection Manager Relationship Specialty Start Date End Date Deven Valentine DO [address] [place] [address] PCP - General Internal Medicine 04/16/22 Lisandro Marvin MD [address] [place] [id number] [email or web address] Historical LMR Provider 08/31/17 Theresa Guzman MD [address] [place] [address] Historical LMR Provider 08/31/17 Deven Valentine DO [address] [place] [phone] Insurance Assigned Provider 02/14/25 Additional Source Comments The information contained in this document represents components of the legal health record. It is not the complete legal health record.[facility]
--- OUTSIDE RECORDS SUMMARY | 2025-08-09 13:12 | XMS_ITS | Encounter Summary ---
Author Organization [facility] Address [address] [facility] [address] [place] [address] Phone Care Team Providers Care Pathology Laboratory Director Name Role Phone Lisandro Marvin MD Unavailable [phone] Theresa Guzman MD Unavailable Deven Valentine DO Primary Care Provider Deven Valentine DO Unavailable [phone] Reason for Visit * Reason Onset Date Comments Billing 07/23/2025 Encounter Details Date Type Department Care Team (Late st Contact Info) Description 07/23/2025 Telephone [facility] [address] [place] [address] Devne Valentine DO [address] [facility], 2nd [place] [address] [email or web address] Billing Social History Tobacco Use Types Packs/Day Years [...] as of this encounter Progress Notes * Nyla Sanchez - 07/23/2025 9:35 AM EDT Patient called in requesting assistance with a billing issue. Patient received a bill in the amountof $311.00 for DOS 03/25/25. Message sent to billing for further review documented in this encounter Plan of Treatment Upcoming Encounters Date Type Department Care Team (Late st Contact Info) Description 04/28/2025 Procedure Pass [address] [place] [address] 09/01/2025 1:00 PM EDT Office Visit [facility] [address] [facility] [address] [place] [address] Pascale Marques MD [address] [facility] [address] [place] [address] [email or web address] 09/28/2025 8:00 AM EST Office Visit [facility] [address] [place] [address] Deven Valentine DO [address] [place] [address], 2nd [place] [address] 10/12/2025 7:40 AM EST Office Visit [facility] [address] [place] [address] [address]rd Floor, [address] [place] [address] Que Flores MD [address] [facility], [address] [place] [address] 11/26/2025 10:30 AM EST Appointment [address] [place] [address] Sridhar Chase MD [address] [place] [address], [facility] [address] [place] [address] documented as of this encounter Visit Diagnoses Not on filedocumented in this encounter Additional Health Concerns Assessment Noted Time PHQ-9 Depression Total Score: 025 6:58 PM EDT PHQ-2 Depression Total Score: 07/14/20 25 6:58 PM EDT documented as of this encounter Care Teams Pathology Laboratory Director Relationship Specialty Start Date End Date Deven Valentine DO [address] [place] [id number] PCP - General Internal Medicine 04/16/22 Lisandro Marvin MD [address] [place] [address] Historical LMR Provider 08/31/17 Theresa Guzman MD [address] [place] [address] Historical LMR Provider 08/31/17 Deven Valentine DO [address] [place] [phone] Insurance Assigned Provider 02/14/25 documented as of this encounter Additional Source Comments The information contained in this document represents components of the legal health record. It is not the complete legal health record.[facility]
== END 2025-08-09 11:42 | disposition home or self-care (01) ==
LOC: HO.HOP 11:42
PROVIDERS: PCP Family Medicine; Visit Provider Psychiatry & Neurology Psychiatry
DX: F43.10 Post-traumatic stress disorder, unspecified (principal); F34.0 Cyclothymic disorder
CPT/HCPCS: 90833; 99213

== ENCOUNTER 2025-09-06 17:12 | Outpatient (AMB) | payer MEDICARE, OTHER, SELFPAY ==
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
--- OUTSIDE RECORDS SUMMARY | 2025-09-06 19:24 | XMS_ITS | Encounter Summary ---
Author Organization [facility] Address [facility] [address] [place] [phone] Phone Care Team Providers Care Rn Integrated Name Role Phone Theresa Guzman MD Primary Care Provider + Lisandro Marvin MD Unavailable [phone] Theresa Guzman MD Unavailable Deven Valentine DO Primary Care Provider Deven Valentine DO Unavailable Encounter Details Date Type Department Care Team (Late st Contact Info) Description 12/26/2021 Transcribe Orders Virtual Department [address] [place] [address] Ginger Garcia PA [address] [place] [address] History of recent fall (Primary Dx) Social [...] st Contact Info) Description 04/28/2025 Procedure Pass [address] [place] [address] 09/28/2025 8:00 AM EST Office Visit [address] [place] [address] Deven Valentine DO [address] [place] [address], 2nd [place] [address] 10/12/2025 7:40 AM EST Office Visit [facility] [address] [place] [address] 3rd Floor, [address] [place] [address] Que Flores MD [address] [place] [address], [address] [place] [address] 11/26/2025 10:30 AM EST Appointment [address] [place] [address] Sridhar Chase MD [address] [place] [address], [address] [place] [address] 01/27/2026 11:00 AM EDT Office Visit [facility] Neurology at [place] [address] [facility] [address] [place] [address] Tasha Michael MD [address] [place] [address] [email or web address] documented as of this encounter Results * [...] as of this encounter Care Teams Rn Integrated Relationship Specialty Start Date End Date Theresa Guzman MD [address] [place] [address] PCP - General 05/11/14 04/15/22 Deven Valentine DO [address] [place] [address], 2nd [place] [address] [email or web address] PCP - General Internal Medicine 04/16/22 Lisandro Marvin MD [address] [place] [address] [email or web address] Historical LMR Provider 08/31/17 Theresa Guzman MD [address] [place] [address] Historical LMR Provider 08/31/17 Deven Valentine DO [address] [place] [address] [email or web address] Insurance Assigned Provider 02/14/25 documented as of this encounter Additional Source Comments The information contained in this document represents components of the legal health record. It is not the complete legal health record.[facility]
--- OUTSIDE RECORDS SUMMARY | 2025-09-06 19:24 | XMS_ITS | Encounter Summary ---
Author Organization [facility] Address [address] [place] [address] [place] [address] Phone Care Team Providers Care Processing Supervisor Name Role Phone Theresa Guzman MD Primary Care Provider + Meño Jeffers MD Unavailable [phone] Diya Munguia MD Unavailable Anup Zavaleta DO Unavailable [phone] Lisandro Marvin MD Unavailable Musa Rivera MD Unavailable Erwin Stafford NP Unavailable [phone] Theresa Guzman MD Unavailable Aram Kerr MD Unavailable Marlon Ramirez MD Unavailable Deven Valentine DO Primary Care Provider Deven Valentine DO Unavailable [phone] Encounter Details Date Type Department Care Team (Late st Contact Info) Description 11/19/2018 Ancillary Orders [facility] Department [address] [place] [address] Theresa Guzman MD [address] [place] [address] Breast screening Social History Tobacco Use Types [...] st Contact Info) Description 04/28/2025 Procedure Pass [address] [place] [address] 09/28/2025 8:00 AM EST Office Visit [facility] Medical [facility] Medical [address] [place] [address] Deven Valentine DO [address] [facility], 2nd [place] [address] 10/12/2025 7:40 AM EST Office Visit [facility] [address] [place] [address] 3rd Floor, [address] [place] [address] Que Flores MD [address] [facility], [address] [place] [address] 11/26/2025 10:30 AM EST Appointment [address] [place] [address] Sridhar Chase MD [address] [facility], [address] [place] [address] 01/27/2026 11:00 AM EDT Office Visit [facility] Neurology at [place] [address] [place] [address] Tasha Michael MD [address] [place] [address] [email or web address] Scheduled Orders Name Type Priority Associated Diagnoses [...] documented as of this encounter Care Teams Processing Supervisor Relationship Specialty Start Date End Date Theresa Guzman MD [address] [place] [address] PCP - General 05/11/14 04/15/22 Deven Valentine DO [address] [place] [address], 2nd [place] [address] PCP - General Internal Medicine 04/16/22 Meño Jeffers MD 50 [facility] 1st Floor [address] [place] [address] Historical LMR Provider 08/31/17 2 Diya Munguia MD [address] [place] [address] Historical LMR Provider 08/31/17 2 Anup Zavaleta DO [address] [facility] [address] [place] [address] Historical LMR Provider 08/31/17 11/18/21 Lisandro Marvin MD [address] [place] [address] Historical LMR Provider 08/31/17 Musa Rivera MD [address] [place] [address] Historical LMR Provider 08/31/17 2 Erwin Stafford NP [address] [place] [address] [address] [place] [address] [phone] Historical LMR Provider 08/31/17 2 Theresa Guzman MD [address] [place] [address] Historical LMR Provider 08/31/17 Aram Kerr MD [address] [facility], [address] [place] [address] Historical LMR Provider 08/31/17 11/18/21 Marlon Ramirez MD [address] [place] [phone] Historical LMR Provider 08/31/17 2 Deven Valentine DO [address] [place] [address], 2nd [place] [address] [email or web address] Insurance Assigned Provider 02/14/25 documented as of this encounter Additional Source Comments The information contained in this document represents components of the legal health record. It is not the complete legal health record.[facility]
--- OUTSIDE RECORDS SUMMARY | 2025-09-06 19:24 | XMS_ITS | Encounter Summary ---
Author Organization [facility] Address [address] [facility] [address] [place] [address] Phone Care Team Providers Care Angiography Technologist Name Role Phone Lisandro Marvin MD Unavailable [phone] Theresa Guzman MD Unavailable [phone] Deven Valentine DO Primary Care Provider Deven Valentine DO Unavailable [phone] Encounter Details Date Type Department Care Team (Late st Contact Info) Description 04/16/2022 Procedure Pass [facility] Scan - [address] [address] Social History Tobacco Use Types Packs/Day Years [...] high school, GED, job training, learning the Lithuanian language, technical skills, or developing parenting skills)? [...] st Contact Info) Description 04/28/2025 Procedure Pass [facility] - [address] [place] [address] 09/28/2025 8:00 AM EST Office Visit [address] [place] [address] Deven Valentine, [address] [facility], 2nd Floor [place] [address] 10/12/2025 7:40 AM EST Office Visit [facility] [address] 3rd Floor, [address] [place] [address] Que Flores MD [address] [facility], [address] [place] [address] 11/26/2025 10:30 AM EST Appointment [address] [place] [address] Sridhar Chase MD [address] [facility], [address] [place] [address] 01/27/2026 11:00 AM EDT Office Visit [facility] Neurology at [address] [place] [address] Tasha Michael MD [address] [place] [address] [email or web address] documented as of this encounter Visit Diagnoses [...] documented as of this encounter Care Teams Angiography Technologist Relationship Specialty Start Date End Date Deven Valentine DO [address] [place] [address], [address] [place] [address] [email or web address] PCP - General Internal Medicine 04/16/22 Lisandro Marvin MD [address] [place] [address] [email or web address] Historical LMR Provider 08/31/17 Theresa Guzman MD [address] [place] [address] Historical LMR Provider 08/31/17 Deven Valentine DO [address] [place] [address], 2nd [place] [address] [email or web address] Insurance Assigned Provider 02/14/25 documented as of this encounter Additional Source Comments The information contained in this document represents components of the legal health record. It is not the complete legal health record.[facility]
--- OUTSIDE RECORDS SUMMARY | 2025-09-06 19:24 | XMS_ITS | Clinical Summary ---
Author Organization [facility] Address [address] [place] [address] Phone Care Team Providers Care College Service Officer Name Role Phone Lisandro Marvin MD Unavailable Theresa Guzman MD Unavailable [phone] Deven [place] DO Primary Care Provider Deven [place] DO Unavailable Allergies Active Allergy Reactions Criticality Noted Date [...] mouth daily. Active Medication-Free Text QUERCTIN Active otnzlov-kbsr-zjg ya-uews-lfxpih 100 mg-150 mg- 50 mg-150 mg Cap Take by mouth. Active albuterol 90 mcg/actuation inhaler Inhale 2 puffs into the lungs every 6 (six) hours as needed for wheezing. 18 g 3 3 Active levalbuterol (XOPENEX HFA) 45 mcg/actuation inhalerIndicatio ns:Moderate persistent asthma without complication Inhale 2 puffs into the lungs every 6 (six) hours as needed for wheezing or shortness of breath/dyspnea. 15 g 2 3 Active blood sugar diagnostic (ONETOUCH VERIO) Strp stripsIndication s:Type 2 diabetes mellitus without complication, without long-term current use of insulin USE 1 TEST STRIP EVERY MORNING DIRECTED 100 strip 4 Active fluticasone propionate (FLONASE) 50 mcg/actuation nasal spray 1 spray by Nasal route daily. 16 g 3 4 Active gabapentin (NEURONTIN) 100 MG capsule Take 100 mg by mouth daily. At night Active albuterol 2.5 mg /3 mL (0.083 %) nebulizer solutionIndicati ons:Chronic obstructive pulmonary disease, unspecified COPD type,Moderate persistent asthma without complication Take 3 mL (2.5 mg total) by nebulization every 6 (six) hours as needed. 300 mL 3 5 Active EPINEPHrine 0.3 mg/0.3 mL auto-injector Inject 0.3 mL (0.3 mg total) into the muscle once as needed for anaphylaxis. 1 each 2 5 Active estradioL (ESTRACE) 0.01 % (0.1 mg/gram) vaginal creamIndications :Atrophic vaginitis Place 1 g vaginally 2 (two) times a week. 42.5 g 1 5 Active clonazePAM (KLONOPIN) 1 MG tablet 5 Active divalproex (DEPAKOTE) [address] tablet 5 Active QUEtiapine (SEROQUEL) 25 MG tablet 5 Active prazosin (MINIPRESS) 1 MG capsule 5 Active lisinopril (PRINIVIL,ZESTRI L) 40 MG tablet 5 Active atenolol (TENORMIN) 50 mg tablet Take 1 tablet (50 mg total) by mouth daily. 90 tablet 3 5 Active Active Problems Problem Noted Date Diagnosed [...] hx of CAD. Recommended she call her geophysical manager and see if this should be switched [...] syndrome that was at outside hospital in [facility]. She was also upset that the [...] had the option of whether going to [place] or [facility] and she states that she apparently made [...] Encounters Date Type Department Care Team Description 08/24/2025 Telephone [facility], Department of Neurology [address] [place] [address] Masoud Krishnamurthy 08/20/2025 Telephone [facility], Department of Neurology [address] [place] [address] Masoud Krishnamurthy 08/16/2025 Telephone [facility] [address] [place] [address] Sridhar Chase MD 08/05/2025 Refill [facility] [address] [place] [address] Deven [place], DO Medication Refill 07/23/2025 Telephone [facility] [address] [place] [address] Deven [place], DO Billing 07/21/[address] [place] [address] Lucina Schuster Care Coordination 07/19/2025 2:28 PM EDT - 07/19/2025 11:59 PM EDT Hospital Encounter [facility] [address] [place] [address] Barbara Rockwell MD Discharge Disposition: Home or Self Care 07/16/2025 10:40 AM EDT Telemedicine [facility] Allergy Center at [address] [place] [address] Barbara Rockwell MD 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) 07/15/2025 4:30 PM EDT Telemedicine [facility] [address] [place] [address] Deven [place] DO Grief at loss of child (Primary Dx) 07/08/2025 Telephone [facility] [address] [place] [address] Lucina Schuster Care Coordination 07/06/2025 11:50 AM EDT - 07/06/2025 11:59 PM EDT Hospital Encounter [facility] [address] [place] [address] [place] [address] Deven [place] DO Discharge Disposition: Home or Self Care 07/02/2025 Telephone [facility] [address] [place] [address] Lucina Schuster Care Coordination 07/02/[address] [address] Carol Rodriguez Triage (Green + mental health [...] Former Cigarettes 1 14 1 979 - 1993 Smokeless Tobacco: Never Tobacco Cessation:Counseling Given: Not [...] your housing situation today? I have bárbara do 04/16/2022 How many times have you move [...] st Contact Info) Description 04/28/2025 Procedure Pass [address] [place] [address] 09/28/2025 8:00 AM EST Office Visit [facility] [address] [place] [address] [place] [address] Deven [place], [address] [facility], 2nd [place] [address] 10/12/2025 7:40 AM EST Office Visit [facility] [address], [address] [place] [address] Que Flores MD [address] [facility], [address] [place] [address] 11/26/2025 10:30 AM EST Appointment [address] [place] [address] Sridhar Chase MD [address] [facility], [address] [place] [address] 01/27/2026 11:00 AM EDT Office Visit [facility] Neurology at [address] [place] [address] Tasha Michael MD [address] [place] [address] [email or web address] Health Maintenance Due Date Last Done Comments VALPROIC ACID (DEPAKENE) LEVEL 1965 HEPATITIS C SCREENING 1981 HIV ONE-TIME SCREENING (18-65 YEARS) 1981 HEPATITIS A VACCINES (1 of 2 - Risk 2-dose series) 1982 COLOGUARD 02/27/2008 COLONOSCOPY 02/27/2008 COLORECTAL CANCER SCREENING 02/27/2008 FIT TEST 02/27/2008 FOBT 02/27/2008 SIGMOIDOSCOPY 02/27/2008 VIRTUAL COLONOSCOPY 02/27/2008 RSV VACCINE (1 - Risk 50-74 years 1-dose series) 2013 DIABETIC EYE EXAM 12/12/2023 MAMMOGRAM 04/18/2025 04/18/2023, 06/0 05/2022, 03/20/2021, Additional history exists INFLUENZA VACCINE (#1) 2025 , 08/30/2021, 07/21/2020, Additional history exists COVID-19 VACCINE (2 - 2024- season) 2025 02/15/2021 LIPID PANEL 10/13/2025 10/13/2024, 04/12, 08/13/2022 BLOOD PRESSURE 10/28/2025 04/28/2025 PAP SMEAR 12/18/2025 12/18/2022 HEMOGLOBIN A1C 01/06/2026 07/06/2025, 01/2024, 11/29/2023, Additional history exists DEPRESSION SCREENING 07/14/2026 07/14/2025, 07/14/20 CREATININE LEVEL 07/19/2026 07/19/2025, 01/2024, 04/23/2023, Additional history exists POTASSIUM LEVEL 07/19/2026 07/19/2025, 01/2024, 04/23/2023, Additional history exists Adult Td,Tdap [...] EDT) SODIUM 140 133 - 146 mmol/L [facility] POTASSIUM 4.2 3.3 - 5.1 mmol/L [facility] CHLORIDE 104 96 - 108 mmol/L [facility] CO2 23 21 - 35 mmol/L [facility] BUN 14 6 - 19 mg/dL [facility] CREATININE 0.70 0.5 - 1.5 mg/dL [facility] GLUCOSE 154(H) 70 - 99 mg/dL [facility] ALBUMIN 4.4 3.9 - 4.8 g/dL [facility] TOTAL PROTEIN 7.4 6.5 - 8.0 g/dL [facility] CALCIUM 9.9 8.4 - 10.3 mg/dL [facility] ALKALINE PHOSPHATASE 109 39 - 117 U/L [facility] TOTAL BILIRUBIN 0.3 0.0 - 1.2 mg/dL [facility] AST 21 0 - 37 U/L [facility] ALT 24 0 - 40 U/L [facility] GLOBULIN 3.0 1 - 4.8 g/dL [facility] EGFR 98 >59 mL/min/1.7 3m2 [facility] Comment:Estimated glomerular filtration rate calculated using the CKD-EPI refit equation. ANION GAP 17 10 - 20 mmol/L [facility] Blood 07/19/2025 2:30 PM EDT 07/19/2025 2:36 PM EDT us Barbara Rockwell MD LAB BLOOD ORDERABLES Final Re sult [facility] [address] [place] [address] * Pneumococcus IgG antibody (23 serotypes) (07/19/2025 [...] DR Serotype 19F (19) 5.2 >=1.0 mcg/mL [facility] MED/PATH [address] DR Serotype 20 [...] developed and its performance characteristics determined by [facility] in a manner consistent with CLIA requirements. This test has not been cleared or approved by the U.S. Food and Drug Administration. Blood 07/19/2025 2:30 PM EDT 07/19/2025 2:37 PM EDT us Barbara Rockwell MD LAB BLOOD ORDERABLES Final Re sult [facility] [place] [address] * CBC and differential (07/19/2025 2:30 PM EDT) WBC 8.54 4.00 - 11.00 K/uL [facility] RBC 4.69 4.00 - 5.20 M/uL [facility] HGB 14.3 12.0 - 16.0 g/dL [facility] HCT 43.3 36.0 - 46.0 % [facility] PLT 331 150 - 450 K/uL [facility] MCV 92.3 80.0 - 100.0 fL [facility] MCH 30.5 27.0 - 31.0 pg [facility] MCHC 33.0 32.0 - 36.0 g/dL [facility] RDW 12.8 11.5 - 14.5 % [facility] MPV 9.6 8.4 - 12.0 fL [facility] NRBC 0.00 0.00 /100 WBCs [facility] ABSOLUTE NRBC 0.00 0.00 K/uL [facility] DIFF METHOD Auto [facility] NEUTS 64.5 48.0 - 76.0 % [facility] LYMPHS 25.5 18.0 - 41.0 % [facility] MONOS 8.0 4.0 - 11.0 % [facility] EOS 1.1 0.0 - 5.0 % [facility] BASOS 0.5 0.0 - 1.5 % [facility] Granulocytes, immature (%) 0.4 0.0 - 0.9 % [facility] ABSOLUTE NEUTS 5.52 1.92 - 7.60 K/uL [facility] ABSOLUTE LYMPHS 2.18 0.72 - 4.10 K/uL [facility] ABSOLUTE MONOS 0.68 0.16 - 1.10 K/uL [facility] ABSOLUTE EOS 0.09 0.00 - 0.50 K/uL [facility] ABSOLUTE BASOS 0.04 0.00 - 0.15 K/uL [facility] Granulocytes, immature 0.03 0.00 - 0.09 K/uL [facility] Blood 07/19/2025 2:30 PM EDT 07/19/2025 2:36 PM EDT Barbara Rockwell MD LAB BLOOD ORDERABLES Final Re sult Performing Organization Address [facility]/ZIP Co de Phone Number [address] [address] * Immunoglobulin A (07/19/2025 2:30 PM EDT) IgA 144 70 - 400 mg/dL [facility] Blood 07/19/2025 2:30 PM EDT 07/19/2025 2:36 PM EDT Barbara Rockwell MD LAB BLOOD ORDERABLES Final Re sult Performing Organization Address [facility] Co de Phone Number [address] [address] * Immunoglobulin M (07/19/2025 2:30 PM EDT) IMMUNOGLOBULIN M 142 40 - 230 mg/dL [facility] Blood 07/19/2025 2:30 PM EDT 07/19/2025 2:36 PM EDT Barbara Rockwell MD LAB BLOOD ORDERABLES Final Re sult Performing Organization Address City/[facility]/ZIP Co de Phone Number [address] [address] * Immunoglobulin G (07/19/2025 2:30 PM EDT) IMMUNOGLOBULIN G 734 700 - 1,600 mg/dL [facility] Blood 07/19/2025 2:30 PM EDT 07/19/2025 2:36 PM EDT us Barbara Rockwell MD LAB BLOOD ORDERABLES Final Re sult Performing Organization Address City/[facility]/ZIP Co de Phone Number [address] [address] * 25-OH vitamin D (07/06/2025 11:51 AM EDT) Pathologist [facility] 25 OH VIT D (TOTAL) 33 30 - 60 ng/mL [facility] Blood 07/06/2025 11:5 1 AM EDT 07/06/2025 11:56 AM EDT us Deven [place] DO LAB BLOOD ORDERABLES Fi nal Result Performing Organization Address [facility]/ZIP Co de Phone Number [address] [address] * (ABNORMAL) Hemoglobin A1c (07/06/2025 11:51 AM EDT) Pathologist [facility] HEMOGLOBIN A1C 7.4(H) 4.3 - 5.8 % [facility] Blood 07/06/2025 11:5 1 AM EDT 07/06/2025 11:56 AM EDT us [place] DO LAB BLOOD ORDERABLES Fi nal Result Performing Organization Address City/[facility] Co de Phone Number [address] [address] * (ABNORMAL) Lipid panel (10/13/2024 7:57 AM EST) HDL 76 mg/dL [facility] Comment: Interpretation <40 mg/dL: Low HDL cholesterol (major risk factor for CHD) Greater than or equal to 60 mg/dL: High HDL cholesterol ( negative risk factor for CHD) HDL - cholesterol is affected by a number of factors, e.g. smoking, excerise, hormones, sex and age. CHOLESTEROL 236 0 - 240 mg/dL [facility] TRIGLYCERIDES 78 30 - 160 mg/dL [facility] LDL 144(H) 50 - 129 mg/dL [facility] Comment: LDL levels in terms of risk for coronary heart disease: <100 mg/dL: Optimal 100-129 mg/dL: Near or above optimal 130-159 mg/dL: Borderline high 160-189 mg/dL: High >190 mg/dL: Very High CARDIAC RISK RATIO 3.1(L) 3.3 - 4.4 C [facility] Blood 10/13/2024 7:57 AM EST 10/13/2024 8:21 AM EST us Deven [place] DO LAB BLOOD ORDERABLES Fi nal Result Performing Organization Address City/State/[facility] Co de Phone Number [address] [address] * BI MAMMOGRAM SCREENING WITH TOMOSYNTHESIS WITH [...] SEE NARRATIVE - 12/24/2022 3:55 [place] [address] Pipe Jeeper: Mari Jamison MD ADMITTING COORDINATOR Cytology Report FINAL DIAGNOSIS A. PAP SMEAR [...] 59, 66, 68) Note: Testing performed by [facility] [facility] HR-HPV analysis. Clinical correlation is advised. This HPV test was performed at [facility], [address] [place] [address]. This test has been FDA approved for [facility] cervical cytology specimens. The accuracy and precision of this test for all other specimen sources has been verified in the Cytopathology Laboratory of the [facility] and has not been cleared or approved by the U.S. Food and Drug Administration. Clinical correlation is advised. CLINICAL HISTORY Date of Last Menstrual Period: Not Provided Menstrual History: Post Menopausal Treatment History: Cone Bx Other Clinical Conditions: Screening Pap SPECIMEN SOURCE A: PAP SMEAR (SUREPATH) CE Patient Name: MEREDITH SEARS. : 1965 (Age: 57) Sex: F Institution: [facility] Location: [facility] Date of Collection: 12/18/2022 Date of Reported: 12/24/2022 15:55 Results to: Sridhar Chase MD Sridhar Chase MD CYTOLOGY ORDERABLES Final Result SEE NARRATIVE from Last 3 Months or Most Recently Relevant to Health Maintenance Insurance MEDICARE PART A & B [facility] MEDICARE PART A & B [facility] MEDICARE PART A & [place] [address] [place] [address] Member Subscriber Plan / Payer (Ef fective 2023-) Name:Meredith Sears Relation to Subscriber:Spouse Name:JOSEMIHAELA YI Date of :1900 (Home) Address: [address] [place] [address] Payer ID:[id number] ([facility]) Type:POS Address: [place] [phone] MEDICARE PART A & B Member Subscriber Plan / Payer (Ef fective 2022-) Name:Meredith Sears Member ID:[id number] Relation to Subscriber:Self Name:Meredith Sears Subscriber ID:[id number] Payer ID:[id number] Group ID:Not on file Type:Medicare Address: [employer] [address] [place] [id number] [place] [address] MEDICARE PART A & B [facility] MEDICARE PART A & B [facility] Care Teams College Service Officer Relationship Specialty Start Date End Date Deven [place] DO [address] [place] [address], 2nd [place] [address] PCP - General Internal Medicine 04/16/22 Lisandro [place] MD [address] [place] [address] [email or web address] Historical LMR Provider 08/31/17 Theresa Guzman MD [address] [place] [address] [email or web address] Historical LMR Provider 08/31/17 Deven [place] DO [address] [place] [address] [email or web address] Insurance Assigned Provider 02/14/25 Additional Source Comments The information contained in this document represents components of the legal health record. It is not the complete legal health record.[facility]
--- OUTSIDE RECORDS SUMMARY | 2025-09-06 19:24 | XMS_ITS | Encounter Summary ---
Author Organization [facility] Address [address] [place] [address] [place] [address] Phone Care Team Providers Care Director Of Collections And Archives Name Role Phone Theresa Guzman MD Primary Care Provider + Meño Jeffers MD Unavailable Diya Munguia MD Unavailable Anup Zavaleta DO Unavailable Lisandro [place] MD Unavailable Musa Rivera MD Unavailable Erwin Stafford NP Unavailable Theresa Guzman MD Unavailable [phone] Aram Kerr MD Unavailable Marlon Ramirez MD Unavailable [phone] Deven [place] DO Primary Care Provider Deven [place] DO Unavailable [phone] Encounter Details Date Type Department Care Team (Late st Contact Info) Description 03/28/2021 Procedure Pass [facility] Admitting Dept Virtual Department [address] [place] [address] Social History Tobacco Use Types Packs/Day Years [...] st Contact Info) Description 04/28/2025 Procedure Pass [address] [place] [address] 09/28/2025 8:00 AM EST Office Visit [facility] [address] [place] [address] Deven [place] DO [address] [place] [address], 2nd [place] [address] 10/12/2025 7:40 AM EST Office Visit [facility] [address] [place] [address] 3rd Floor, [address] [place] [address] Que Flores MD [address] [place] [address], [address] [place] [address] 11/26/2025 10:30 AM EST Appointment [address] [place] [address] Sridhar [place] MD [address] [place] [address], [address] [place] [address] 01/27/2026 11:00 AM EDT Office Visit [facility] Neurology at [address] [address] Tasha Michael MD [address] [place] [address] [email or web address] documented as of this encounter Visit Diagnoses Not on filedocumented in this encounter Additional Health Concerns Infection Onset Date Last Indicated Resolved Time CoV-Risk 12/22/2024 12/22/2024 12/22/2024 2:11 PM EST COVID-19 12/22/2024 12/22/2024 01/12/2025 1:23 AM EST documented as of this encounter Care Teams Director Of Collections And Archives Relationship Specialty Start Date End Date Theresa Guzman MD [address] [place] [address] PCP - General 05/11/14 04/15/22 Deven [place] DO [address] [place] [address], 2nd [place] [address] PCP - General Internal Medicine 04/16/22 Meño Jeffers MD [address] [place] [address] 1st [address] [place] [address] Historical LMR Provider 08/31/17 2 Diya Munguia MD [facility] [place] [address] Historical LMR Provider 08/31/17 2 Anup Zavaleta DO [address] [facility] [address] [place] [address] Historical LMR Provider 08/31/17 11/18/21 Lisandro [place] MD [address] [place] [address] [email or web address] Historical LMR Provider 08/31/17 [place] [address] [place] [address] [address] [place] [address] Historical LMR Provider 08/31/17 2 Erwin Stafford NP [address] [place] [address] [address] Historical LMR Provider 08/31/17 2 Theresa Guzman MD [address] [place] [address] [email or web address] Historical LMR Provider 08/31/17 Aram [place] MD [address] [place] [address] [email or web address] Historical LMR Provider 08/31/17 11/18/21 Marlon Ramirez MD [address] [place] [phone] Historical LMR Provider 08/31/17 2 Deven [place] DO [address] [place] [address] Insurance Assigned Provider 02/14/25 documented as of this encounter Additional Source Comments The information contained in this document represents components of the legal health record. It is not the complete legal health record.[facility]
--- OUTSIDE RECORDS SUMMARY | 2025-09-06 19:24 | XMS_ITS | Encounter Summary ---
Author Organization [facility] Address [address] [place] [address] [place] [address] Phone Care Team Providers Care Character Actress Name Role Phone Theresa Guz[place] MD Primary Care Provider + Meño Jeffers MD Unavailable RendonDiya Nascimento MD Unavailable Anup Zavaleta DO Unavailable Lisandro [place] MD Unavailable [phone] Musa Rivera MD Unavailable Erwin Stafford NP Unavailable Theresa Guzman MD Unavailable Aram [place] MD Unavailable [phone] Marlon Ramirez MD Unavailable [phone] Deven [place] DO Primary Care Provider Deven [place] DO Unavailable [phone] Encounter Details Date Type Department Care Team (Late st Contact Info) Description 03/04/2018 Transcribe Orders [facility] [address] [place] [address] Lisandro [place] MD [address] [place] [address] 2nd [place] [address] Social History Tobacco Use Types Packs/Day Years [...] st Contact Info) Description 04/28/2025 Procedure Pass [address] [place] [address] 09/28/2025 8:00 AM EST Office Visit [facility] [address] [place] [address] Deven [place] DO [address] [place] [address], 2nd [place] [address] 10/12/2025 7:40 AM EST Office Visit [facility] [address] [place] [address] [address]rd Floor, [address] [place] [address] Que Flores MD [address] [facility], [address] [place] [address] 11/26/2025 10:30 AM EST Appointment [address] [place] [address] Sridhar Chase MD [address] [facility], [address] [place] [address] 01/27/2026 11:00 AM EDT Office Visit [facility] Neurology at [place] [address] [place] [address] Tasha Michael MD [address] [place] [address] [email or web address] documented as of this encounter Visit Diagnoses Not on filedocumented in this encounter Additional Health Concerns Infection Onset Date Last Indicated Resolved Time CoV-Risk 12/22/2024 12/22/2024 12/22/2024 2:11 PM EST COVID-19 12/22/2024 12/22/2024 01/12/2025 1:23 AM EST documented as of this encounter Care Teams Character Actress Relationship Specialty Start Date End Date Theresa Guzman MD [address] [place] [address] PCP - General 05/11/14 04/15/22 Deven [place] DO [address] [place] [address], 2nd [place] [address] PCP - General Internal Medicine 04/16/22 Meño Jeffers MD [address] [facility] 1st [address] [place] [address] Historical LMR Provider 08/31/172 2 Diya Munguia MD [facility]3 [place] [address] Historical LMR Provider 08/31/172 2 Anup Zavaleta DO [address] [address] Historical LMR Provider 08/31/17 11/18/21 Lisandro [place] MD [address] [place] [address] Historical LMR Provider 08/31/17 Musa Rivera MD [address] [place] [address] Historical LMR Provider 08/31/17 2 Erwin Stafford NP [address] [place] [address] [phone] Historical LMR Provider 08/31/17 2 Theresa Guzman MD [address] [place] [address] Historical LMR Provider 08/31/17 Aram [place] MD [address] [place] [address] Historical LMR Provider 08/31/17 11/18/21 Marlon Ramirez MD [address] [place] [phone] Historical LMR Provider 08/31/17 2 Deven [place] DO [address] [place] [address] Insurance Assigned Provider 02/14/25 documented as of this encounter Additional Source Comments The information contained in this document represents components of the legal health record. It is not the complete legal health record.[facility]
--- OUTSIDE RECORDS SUMMARY | 2025-09-06 19:24 | XMS_ITS | Encounter Summary ---
Author Organization [facility] Address [address] [place] [address] Phone Care Team Providers Care Cath Lab Radiology Technician Name Role Phone Lisandro Marvin MD Unavailable [phone] Theresa Guzman MD Unavailable [phone] Deven Valentine DO Primary Care Provider Deven Valentine DO Unavailable [phone] Reason for Referral * MRI/CAT Scan - Closed Specialty Diagnoses / Procedures Referred By Frank forrester Referred To Contact Radiology Diagnoses Unstable angina pectoris Procedures NC Myocardial Perfusion Stress Single NC Myocardial Perfusion Exercise Multiple Ephraim Luque MD Phone: tel: fax: [email or web address] Referral ID Status Reason Start Date Expiration Date Visits Re quested Visits Authorized [id number] Closed 11/08/2022 02/06/2023 1 1 Encounter Details Date Type Department Care Team (Latest Contact Info) Description 12/27/2022 Ancillary Orders [facility] 3rd Floor, [address] [place], [place] [id number] Ephraim Luque MD [address] [place] [address], [address] [place] [address] [email or web address] Unstable angina pectoris Social History Tobacco Use Types Packs/Day Years [...] high school, GED, job training, learning the Marshallese language, technical skills, or developing parenting skills)? [...] st Contact Info) Description 04/28/2025 Procedure Pass [address] [place] [address] 09/28/2025 8:00 AM EST Office Visit [address] [place] [address] Deven Valentine DO [address] [place] [address], 2nd [place] [address] 10/12/2025 7:40 AM EST Office Visit [facility] [address] [place] [address] 3rd Floor, [address] [place] [address] Que Flores MD [address] [facility], [address] [place] [address] 11/26/2025 10:30 AM EST Appointment [address] [place] [address] Sridhar Chase MD 22 [facility], [address] [place] [address] 01/27/2026 11:00 AM EDT Office Visit [facility] Neurology at [address] [place] [address] Tasha Michale MD 60 [place] [address] [email or web address] documented as of this encounter Results * NC Myocardial Perfusion Stress Single (12/27/2022 8:47 AM EST) Nuc Stress EF 54 % LV Systolic Volume Index 52 mL/m2 LV Diastolic Volume Index 114 mL/m2 LV Systolic Volume 50 mL LV Diastolic Volume 112 mL EF 55 % Anatomical Region Laterality Modality Heart Ultrasound Narrative 12/28/2022 3:00 PM EST Normal study. There is no evidence of myocardial infarction or ischemia. Normal LV size and function with no regional wall motion abnormalities. Very low likelihood of hemodynamically significant coronary artery disease. Low risk study for myocardial events or cardiac in the next two years. Nuclear Study Quality TYPE OF STUDY: Myocardial Perfusion Imaging after exercise utilizing a standard Zachary protocol with gated SPECT. PROTOCOL USED: One day stress protocol in the supine and prone position. Images were obtained in gated tomographic technique. Images were processed in SPECT format, reconstructed tomographically and compared [id number] in short axis, horizontal long axis and vertical long axis. DOSE: Technetium 99m Sestamibi 12.4 mCi injected intravenously in the right arm antecubital vein during stress on 12/27/2022 with post injection scan time of 20 minutes. Overall image quality is good. Study was gated successfully. The lung to heart ratio is 0.28 Response to Stress REPORT: Weight: 164 lb BMI: 24.2 Mrs. Gerda Sears exercised for 7:13 minutes on a Zachary protocol that was modified at stage III due to decrease in the speed to 3.1 mph as patient reported she could not keep pace achieving 9.30 METS. Test was terminated due to fatigue and dyspnea. Baseline resting heart rate was 62 bpm. Maximum heart rate achieved was 161 bpm (84% of MPHR). EKG: Baseline EKG showed sinus rhythm at 62 bpm. In pretest position there was no significant change. With exercise, there were no ST segment changes that met strict criteria for ischemia. SYMPTOMS: Patient experienced dyspnea and fatigue during peak exercise. Symptoms resolved spontaneously 2-3 minutes into recovery. EXERCISE PHYSIOLOGY: Good functional capacity for age. Resting BP 132/74, 178/68 at peak exercise, and 138/70 at discharge. Normal BP at baseline with normal response to exercise. ARRHYTHMIAS: Occasional PACs. STRESS CONCLUSION: Negative EKG portion of stress test at good functional capacity of 9.30 METS, 84% of MPHR, without symptoms, and without EKG changes suggestive of ischemia. Nuclear imaging reported separately. See stress report for full details. Electronically signed by: Mohini Hooks NP [facility] . Perfusion Comments Stress LV cavity volume was 76 mL. Resting LV cavity volume was 73 mL. The stress/rest perfusion ratio is 1.04. The TID ratio was 1. Stress Function Comments Left ventricular function post-stress was normal. Post-stress ejection fraction was 54%. Stress end diastolic index: 114 mL/m2. Stress end systolic index: 52 mL/m2. Nuclear Prior Study There is no prior study available for comparison. Rest Function Comments Left ventricular function at rest was normal. Resting ejection fraction was 55%. Rest end diastolic index: 112 mL. Rest end systolic index: 50 mL. Perfusion Scoring Stress Summed Score: 0 Percent Normal: 0.00% The left ventricular perfusion is normal. Perfusion Scoring Resting Summed Score: 0 Percent Normal: 0.00% The left ventricular perfusion is normal. Procedure Note Ephraim Luque MD - 12/28/2022 Normal study. There is no evidence of myocardial infarction or ischemia. Normal LV size and function with no regional wall motion abnormalities. Very low likelihood of hemodynamically significant coronary arterydisease. Low risk study for myocardial events or cardiac in the next twoyears. Ephraim Luque MD CV NM CARDIAC Final Resul t documented in this encounter Visit Diagnoses Diagnosis Chest pain, unspecified type- Primary Unstable angina pectoris Intermediate coronary syndrome Unstable angina pectoris Intermediate coronary syndrome documented in this encounter Additional Health Concerns Infection Onset Date Last Indicated Resolved Time CoV-Risk 12/22/2024 12/22/2024 12/22/2024 2:11 PM EST COVID-19 12/22/2024 12/22/2024 01/12/2025 1:23 AM EST Assessment Noted Time PHQ-9 Depression Total Score: 4 10/15/20 22 10:09 AM EST PHQ-2 Depression Total Score: 1 10/15/20 22 10:09 AM EST documented as of this encounter Care Teams Cath Lab Radiology Technician Relationship Specialty Start Date End Date Deven Valentine DO [address] [place] [address], 2nd [place] [address] PCP - General Internal Medicine 04/16/22 Lisandro Marvin MD [address] [place] [address] [email or web address] Historical LMR Provider 08/31/17 Theresa Guzman MD [address] [place] [address] [email or web address] Historical LMR Provider 08/31/17 Deven Valentine DO [address] [place] [address] [email or web address] Insurance Assigned Provider 02/14/25 documented as of this encounter Additional Source Comments The information contained in this document represents components of the legal health record. It is not the complete legal health record.[facility]
--- OUTSIDE RECORDS SUMMARY | 2025-09-06 19:24 | XMS_ITS | Encounter Summary ---
Author Organization [facility] Address [address] [place] [address] Phone Care Team Providers Care Rn Cardiac Cath Name Role Phone Lisandro Marvin MD Unavailable [phone] Theresa Guzman MD Unavailable [phone] Deven Valentine DO Primary Care Provider Deven Valentine DO Unavailable [phone] Reason for Referral * MRI/CAT Scan - Closed Specialty Diagnoses / Procedures Referred By Frank forrester Referred To Contact Radiology Diagnoses Chest pain Procedures NC Myocardial Perfusion Rest Single NC Myocardial Perfusion Exercise Multiple Ephraim Luque MD Phone: tel: fax: [email or web address] Referral ID Status Reason Start Date Expiration Date Visits Re quested Visits Authorized [id number] Closed 11/08/2022 02/06/2023 1 1 Encounter Details Date Type Department Care Team (Late st Contact Info) Description 11/14/2022 Ancillary Orders [facility] [address], [address] [place] [address] Ephraim Luque MD [address] [place] [address], [address] [place] [address] [email or web address] Chest pain Social History Tobacco Use Types Packs/Day [...] high school, GED, job training, learning the Dive[place] language, technical skills, or developing parenting skills)? [...] st Contact Info) Description 04/28/2025 Procedure Pass [address] [place] [address] 09/28/2025 8:00 AM EST Office Visit [address] [place] [address] Deven Valentine DO [address] [place] [address], 2nd [place] [address] 10/12/2025 7:40 AM EST Office Visit [facility] [address] [place] [address] 3rd Floor, [address] [place] [address] Que Flores MD [address] [facility], [address] [place] [address] 11/26/2025 10:30 AM EST Appointment [address] [place] [address] Sridhar Chase MD [address] [facility], [address] [place] [address] 01/27/2026 11:00 AM EDT Office Visit [facility] Neurology at [address] [place] [address] Tasha Michael MD 60 [place] [address] [email or web address] documented as of this encounter Results * NC Myocardial Perfusion Rest Single (11/14/2022 9:58 AM EST) LV Systolic Volume 37 mL LV Diastolic Volume 101 mL EF 64 % Anatomical Region Laterality Modality Heart, Vascular Ultrasound Narrative 11/14/2022 5:47 PM EST Myocardial perfusion imaging for rest images only- normal Patient had myocardial perfusion imaging at rest only. No significant myocardial perfusion defects were seen in rest images Conclusion: Myocardial perfusion imaging at rest showed no significant myocardial perfusion defects Nuclear Study Quality TYPE OF STUDY: Myocardial Perfusion Imaging after rest images protocol with gated SPECT. PROTOCOL USED: One day rest protocol in the supine position. Images were obtained in gated tomographic technique. Images were processed in SPECT format, reconstructed tomographically and compared [id number] in short axis, horizontal long axis and vertical long axis. DOSE: Technetium 99m Sestamibi 7.1 mCi injected intravenously in the right antecubital vein at rest on 11/14/2022 with post injection scan time of 60 minutes. Overall rest images quality is good. Study was gated successfully. Response to Stress Report: REST IMAGES ONLY The patient came into the office for a stress test today. Blood pressure was initially elevated to about 160/100. She stated that she held her atenolol prior to testing. When I went in to speak to the patient, she was somewhat agitated. She stated that she did not want to do the exercise because of her blood pressure. I rechecked her blood pressure and at that point it was 180/100. She, again, stated that she did not want to do an exercise stress test. I spoke to her about a pharmacologic nuclear stress test and she did not want to do that either. She was worried about side effects. She stated that she has had adenosine in the past and had a lot of side effects to that, therefore did not want to try the Lexiscan. We will have the patient meet with Dr. Luque to discuss options. The patient states that she has had chest discomfort with activity, occasionally. She tells me that she does walks regularly and does not get the chest pain every time she walks. Symptoms sound atypical. Have her meet with Dr. Luque. The patient did take the atenolol before leaving the office. . Perfusion Comments Resting LV cavity volume was 58 mL. Nuclear Prior Study There is no prior study available for comparison. Rest Function Comments Left ventricular function at rest was normal. Resting ejection fraction was 64%. Rest end diastolic index: 101 mL. Rest end systolic index: 37 mL. Perfusion Scoring Resting Summed Score: 2 Percent Normal: 2.94% Mild count reduction in the following segments: apical septal and apex. All other segments are normal. us Ephraim Luque MD CV NM CARDIAC Final Resul t documented in this encounter Visit Diagnoses Diagnosis Chest pain Unspecified chest pain Chest pain Unspecified chest pain documented in this encounter Additional Health Concerns Infection Onset Date Last Indicated Resolved Time CoV-Risk 12/22/2024 12/22/2024 12/22/2024 2:11 PM EST COVID-19 12/22/2024 12/22/2024 01/12/2025 1:23 AM EST Assessment Noted Time PHQ-9 Depression Total Score: 4 10/15/20 22 10:09 AM EST PHQ-2 Depression Total Score: 1 10/15/20 22 10:09 AM EST documented as of this encounter Care Teams Rn Cardiac Cath Relationship Specialty Start Date End Date Deven Valentine DO [address] [place] [address] PCP - General Internal Medicine 04/16/22 Lisandro Marvin MD [address] [place] [address] [email or web address] Historical LMR Provider 08/31/17 Theresa Guzman MD [address] [place] [address] Historical LMR Provider 08/31/17 Deven Valentine DO [address] [place] [address] [email or web address] Insurance Assigned Provider 4/6/25 documented as of this encounter Additional Source Comments The information contained in this document represents components of the legal health record. It is not the complete legal health record.[facility]
--- OUTSIDE RECORDS SUMMARY | 2025-09-06 19:24 | XMS_ITS | Encounter Summary ---
Author Organization [facility] Address [address] [facility] [address] [place] [address] Phone Care Team Providers Care Toggle Press Folder And Feeder Name Role Phone Lisandro Marvin MD Unavailable [phone] Theresa Guzman MD Unavailable [phone] Deven Valentine DO Primary Care Provider Deven Valentine DO Unavailable [phone] Encounter Details Date Type Department Care Team (Late st Contact Info) Description 02/04/2024 Procedure Pass Non-Invasive Cardiology [address] [place] [address] Social History Tobacco Use Types Packs/Day Years [...] high school, GED, job training, learning the Ukrainian language, technical skills, or developing parenting skills)? [...] is your housing situation today? I have bárbaar sing 04/16/2022 How many times have you [...] st Contact Info) Description 04/28/2025 Procedure Pass [address] [place] [address] 09/28/2025 8:00 AM EST Office [place] [address] [place] [address] Deven Valentine DO [address] [facility], 2nd [place] [address] 10/12/2025 7:40 AM EST Office Visit [facility] [address] [place] [address] 3rd Floor, [address] [place] [address] Que Flores MD [address] [facility], [address] [place] [address] 11/26/2025 10:30 AM EST Appointment [address] [place] [address] Sridhar Chase MD [address] [facility], [address] [place] [address] 01/27/2026 11:00 AM EDT Office Visit [facility] Neurology at [address] [place] [address] Tasha Michael MD 60 [place] [address] [email or web address] documented as of this encounter Visit [...] documented as of this encounter Care Teams Toggle Press Folder And Feeder Relationship Specialty Start Date End Date Deven Valentine DO [address] [place] [address] PCP - General Internal Medicine 04/16/22 Lisandro Marvin MD [address] [place] [address] Historical LMR Provider 08/31/17 Theresa Guzman MD [address] [place] [address] Historical LMR Provider 08/31/17 Deven Valentine DO [address] [place] [address] Insurance Assigned Provider 02/14/25 documented as of this encounter Additional Source Comments The information contained in this document represents components of the legal health record. It is not the complete legal health record.[facility]
--- OUTSIDE RECORDS SUMMARY | 2025-09-06 19:24 | XMS_ITS | Encounter Summary ---
Author Organization [facility] Address [address] [employer] [facility] [address] [place] [address] Phone Care Team Providers Care Caramel Cutter Helper Name Role Phone Lisandro Marvin MD Unavailable [phone] Theresa Guzman MD Unavailable Deven Valentine DO Primary Care Provider Deven Valentine DO Unavailable [phone] Encounter Details Date Type Department Care Team (Late st Contact Info) Description 12/18/2022 Procedure Pass [facility] - [address] [place] [address] Social History Tobacco Use Types Packs/Day Years [...] high school, GED, job training, learning the [place] language, technical skills, or developing parenting skills)? [...] Contact Info) Description 04/28/2025 Procedure Pass [facility] - [address] [place] [address] 09/28/2025 8:00 AM EST Office Visit [facility] [address] [place] [address] Deven Valentine, [address] [facility], 2nd Floor [place] [address] 10/12/2025 7:40 AM EST Office Visit [facility] [address] [place] [address]rd Floor, [address] [place] [address] Que Flores MD [address] [facility], [address] [place] [address] [email or web address] 11/26/2025 10:30 AM EST Appointment [address] [place] [address] Sridhar Chase MD 22 [facility], [address] [place] [address] 01/27/2026 11:00 AM EDT Office Visit [facility] Neurology at [address] [place] [address] Tasha Michael MD 60 [place] [address] [email or web address] documented as of this encounter Visit [...] documented as of this encounter Care Teams Caramel Cutter Helper Relationship Specialty Start Date End Date Deven Valentine DO [address] [place] [address], [address]nd [place] [address] [email or web address] PCP - General Internal Medicine 04/16/22 Lisandro Marvin MD [address] [place] [address] 2nd [place] [address] Historical LMR Provider 08/31/17 Theresa Guzman MD [address] [place] [address] Historical LMR Provider 08/31/17 Deven Valentine DO [address] [place] [address], 2nd [place] [address] [email or web address] Insurance Assigned Provider 02/14/25 documented as of this encounter Additional Source Comments The information contained in this document represents components of the legal health record. It is not the complete legal health record.[facility]
--- OUTSIDE RECORDS SUMMARY | 2025-09-06 19:25 | XMS_ITS | Encounter Summary ---
Author Organization [facility] Address [address] [place] [address] [place] [address] Phone Care Team Providers Care Syrup Mixer Name Role Phone Theresa Guzman MD Primary Care Provider + Meño Jeffers MD Unavailable Diya Nascimento MD Unavailable Anup Zavaleta DO Unavailable [phone] Lisandro Marvin MD Unavailable Musa Rivera MD Unavailable Erwin Stafford NP Unavailable Theresa Guzman MD Unavailable Aram Kerr MD Unavailable [phone] Marlon Ramirez MD Unavailable Deven Valentine DO Primary Care Provider Deven Valentine DO Unavailable [phone] Encounter Details Date Type Department Care Team (Late st Contact Info) Description 09/30/2019 Transcribe Orders [facility] Department [address] [place] [address] Theresa Guzman MD 17 [place] [address] Low back pain, unspecified back pain laterality, [...] st Contact Info) Description 04/28/2025 Procedure Pass [address] [place] [address] 09/28/2025 8:00 AM EST Office Visit [facility] [address] [place] [address] Deven Valentine DO [address] [place] [address], 2nd [place] [address] 10/12/2025 7:40 AM EST Office Visit [facility] [address] [place] [address] 3rd Floor, [address] [place] [address] Que Flores MD [address] [facility], [address] [place] [address] 11/26/2025 10:30 AM EST Appointment [address] [place] [address] Sridhar Chase MD [address] [facility], [address] [place] [address] 01/27/2026 11:00 AM EDT Office Visit [facility] Neurology at [address] [facility] [address] [place] [address] Tasha Michael MD [address] [place] [address] [email or web address] documented as of this encounter Results * US PELVIS TRANSVAGINAL ONLY WITH DOPPLER (10/05/2019 3:46 PM EST) Anatomical Region Laterality Modality Pelvis, Uterus/Adnexa Ultrasound 10/05/2019 5:34 PM EST Impressions 10/05/2019 5:38 PM EST 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 Otherwise, unremarkable study. POS - [id number] Narrative 10/05/2019 5:38 PM EST EXAM: US [...] 0.9 cm. Otherwise, unremarkable study. POS - [id number] us Theresa Guzman MD IMG US PELVIS [...] documented as of this encounter Care Teams Syrup Mixer Relationship Specialty Start Date End Date Theresa Guzman MD [address] [place] [address] PCP - General 05/11/14 04/15/22 Deven Valentine DO [address] [place] [address], 2nd [place] [address] PCP - General Internal Medicine 04/16/22 Meño Jeffers MD 50 [facility] 1st Floor [address] [place] [address] Historical LMR Provider 08/31/17 2 Diya Munguia MD [facility] [place] [address] Historical LMR Provider 08/31/17 2 Anup Zavaleta DO 22 [facility] 301 [place] [address] Historical LMR Provider 08/31/17 11/18/21 Lisandro Marvin MD [address] [place] [address] 2[address] [place] [address] Historical LMR Provider 08/31/17 uMsa Rivera MD [address] [facility] [address] [place] [address] Historical LMR Provider 08/31/17 2 Erwin Stafford NP [address] [place] [address] [address] [place] [address] Historical LMR Provider 08/31/17 2 Theresa Guzman MD [address] [place] [address] Historical LMR Provider 08/31/17 Aram Kerr MD [facility], [facility] 102 [place] [address] [email or web address] Historical LMR Provider 08/31/17 11/18/21 Marlon Ramirez MD [address] [place] [address] Historical LMR Provider 08/31/17 2 Deven Valentine DO [address] [place] [address], 2nd [place] [address] [email or web address] Insurance Assigned Provider 02/14/25 documented as of this encounter Additional Source Comments The information contained in this document represents components of the legal health record. It is not the complete legal health record.[facility]
--- OUTSIDE RECORDS SUMMARY | 2025-09-06 19:25 | XMS_ITS | Encounter Summary ---
Author Organization [facility] Address [address] [place] [address] [place] [address] Phone Care Team Providers Care Immersion Metal Cleaner Name Role Phone Theresa Guzman MD Primary Care Provider + Meño Jeffers MD Unavailable Diya Munguia MD Unavailable Anup Zavaleta DO Unavailable [phone] Lisandro Marvin MD Unavailable Musa Rivera MD Unavailable Erwin Stafford NP Unavailable Theresa Guzman MD Unavailable Aram Kerr MD Unavailable Marlon Ramirez MD Unavailable Deven Valentine DO Primary Care Provider Deven Valentine DO Unavailable [phone] Encounter Details Date Type Department Care Team (Late st Contact Info) Description 01/10/2018 Ancillary Orders [facility] Department 30 [place] [address] Theresa Guzman MD 17 [place] [address] Breast screening Social History Tobacco Use Types [...] st Contact Info) Description 04/28/2025 Procedure Pass [address] [place] [address] 09/28/2025 8:00 AM EST Office Visit [facility] [address] [place] [address] Deven Valentine DO [address] [place] [address], 2nd [place] [address] 10/12/2025 7:40 AM EST Office Visit [facility] [address] [place] [address] 3rd Floor, [address] [place] [address] Que Flores MD 22 [facility], [address] [place] [address] 11/26/2025 10:30 AM EST Appointment [address] [place] [address] Sridhar Chase MD 22 [facility], [address] [place] [address] 01/27/2026 11:00 AM EDT Office Visit [facility] Neurology at Hu [address] [place] [address] Tasha Michael MD [address] [address] [email or web address] documented as of this encounter Results * [...] scattered fibroglandular densities. POS - CDHMAMA us Thersea Guzman MD IMG MG EXAMS Final Re sult documented in this encounter Visit Diagnoses Diagnosis Breast screening Breast screening, unspecified Breast screening Breast screening, unspecified documented in this encounter Additional Health Concerns Infection Onset Date Last Indicated Resolved Time CoV-Risk 12/22/2024 12/22/2024 12/22/2024 2:11 PM EST COVID-19 12/22/2024 12/22/2024 01/12/2025 1:23 AM EST documented as of this encounter Care Teams Immersion Metal Cleaner Relationship Specialty Start Date End Date Theresa Guzman MD [address] [place] [address] PCP - General 05/11/14 04/15/22 Deven Valentine DO [address] [place] [address] PCP - General Internal Medicine 04/16/22 Meño Jeffers MD [address] [place] [address] [address] Historical LMR Provider 08/31/17 2 Diya Munguia MD [address] [place] [address] Historical LMR Provider 08/31/17 2 Anup Zavaleta DO [address] [place] [address] Historical LMR Provider 08/31/17 11/18/21 Lisandro Marvin MD [address] [place] [address] Historical LMR Provider 08/31/17 Musa Rivera MD [address] [facility] [address] [place] [address] Historical LMR Provider 08/31/17 2 Erwin Stafford NP [address] [place] [address] 2-1 [place] [phone] Historical LMR Provider 08/31/17 2 Theresa Guzman MD [address] [place] [address] Historical LMR Provider 08/31/17 Aram Kerr MD 22 [facility] 102 [place] [address] Historical LMR Provider 08/31/17 11/18/21 Marlon Ramirez MD [address] [place] [address] Historical LMR Provider 08/31/17 2 Deven Valentine DO [address] [place] [address] Insurance Assigned Provider 02/14/25 documented as of this encounter Additional Source Comments The information contained in this document represents components of the legal health record. It is not the complete legal health record.[facility]
--- OUTSIDE RECORDS SUMMARY | 2025-09-06 19:25 | XMS_ITS | Encounter Summary ---
Author Organization [facility] Address [address] [place] [address] [place] [address] Phone Care Team Providers Care Cognos Architect Name Role Phone Theresa Guzman MD Primary Care Provider + Meño Jeffers MD Unavailable Diya Munguia MD Unavailable Peggy Zavaleta DO Unavailable Lisandro Marvin MD Unavailable Musa Rivera MD Unavailable Erwin Stafford NP Unavailable Theresa Guzman MD Unavailable [phone] Aram Kerr MD Unavailable [phone] Marlon Ramirez MD Unavailable [phone] Deven Valentine DO Primary Care Provider Deven Valentine DO Unavailable [phone] Encounter Details Date Type Department Care Team (Late st Contact Info) Description 09/30/2019 Ancillary Orders [facility] Department 30 [place] [address] Theresa Guzman MD 17 [place] [address] Menopausal and female climacteric states Social History [...] st Contact Info) Description 04/28/2025 Procedure Pass [address] [place] [address] 09/28/2025 8:00 AM EST Office Visit [facility] [address] [place] [address] [place] [address] Deven Valentine DO 170 [facility], 2nd [place] [address] 10/12/2025 7:40 AM EST Office Visit [facility] [address] [place] [address] 3rd Floor, [address] [place] [address] Que Flores MD 22 [facility], [address] [place] [address] 11/26/2025 10:30 AM EST Appointment [address] [place] [address] Sridhar Chase MD 22 [facility], [address] [place] [address] 01/27/2026 11:00 AM EDT Office Visit [facility] Neurology at Hu [address] [place] [address] Tasha Michael MD [address] [place] [address] [email or web address] documented as of this encounter Results * [...] documented as of this encounter Care Teams Cognos Architect Relationship Specialty Start Date End Date Theresa Guzman MD [address] [place] [address] [email or web address] PCP - General 05/11/14 04/15/22 Deven Valentine DO [address] [place] [address], 2nd [place] [address] [email or web address] PCP - General Internal Medicine 04/16/22 Meño Jeffers MD 50 [facility] 1st Floor -[address] [place] [address] Historical LMR Provider 08/31/17 2 Diya Munguia MD [facility]3 [place] [address] Historical LMR Provider 08/31/17 2 Peggy Zavaleta DO [address] [address] Historical LMR Provider 08/31/17 11/18/21 Lisandro Marvin MD [address] [place] [address] [email or web address] Historical LMR Provider 08/31/17 Musa Rivera MD [address] [place] [address] Historical LMR Provider 08/31/17 2 Erwin Stafford NP [address] [place] [address] [address] Historical LMR Provider 08/31/17 2 Theresa Guzman MD [address] [place] [address] Historical LMR Provider 08/31/17 Aram Kerr MD [address] [place] [address] Historical LMR Provider 08/31/17 11/18/21 Marlon Ramirez MD [address] [place] [address] Historical LMR Provider 08/31/17 2 Deven Valentine DO [address] [place] [address] Insurance Assigned Provider 02/14/25 documented as of this encounter Additional Source Comments The information contained in this document represents components of the legal health record. It is not the complete legal health record.[facility]
--- OUTSIDE RECORDS SUMMARY | 2025-09-06 19:25 | XMS_ITS | Encounter Summary ---
Author Organization [facility] Address [address] [place] [address] Care Team Providers Care Roentgenologist Name Role Phone Theresa Guzman MD Primary Care Provider + Encounter Details Date Type Department Care Team (Late st Contact Info) Description 03/09/2025 Scanned Document [facility] [address] [address] Kraig Stark MD [address] [place] [address] Social History Tobacco Use Types Packs/Day Years [...] Description 09/16/2025 12:45 PM EST Clinical Support [facility] [address] [phone] Kraig Stark MD [address] [place] [address] Peg Cid Au.D [address] [place] [address] 10/25/2025 11:00 AM EST Office Visit [facility] [address] [facility] [address] [place] [address] Jose Raul Paul MD [address] [facility] [place] [address] documented as of this encounter Visit Diagnoses Not on filedocumented in this encounter Care Teams Roentgenologist Relationship Specialty Start Date End Date Theresa Guzman MD [address] [place] [address] PCP - General Family Medicine 09/15/21 documented as of this encounter
--- OUTSIDE RECORDS SUMMARY | 2025-09-06 19:25 | XMS_ITS | Clinical Summary ---
Author Organization [address] Address [address] [place] [address] Phone Care Team Providers Care Train Operator Name Role Phone Theresa Guzman MD Primary Care Provider [phone] Allergies Active Allergy Reactions Criticality Noted Date [...] Diabetes screening 05/31/2024 05/31/2021, 05/30/2021 Influenza vaccine 06/11/2025 11/11/2011 Covid-19 vaccine series (1 - 2024- season) 2025 RSV Immunization (1 - 1-dose 75+ series) 2038 Pneumococcal Vaccine (2 - 49 years) Discontinued 11/11/1996 Meningococcal B Vaccine Aged Out No l onger eligible based on patient's age to complete this topic Meningococcal Vaccine Aged Out No emani russell eligible based on patient's age to complete this topic Procedures Procedure Name Priority Date/Time Associated Diagnosis Comments BASIC METABOLIC PANEL Routine 05/31/2021 5:44 AM EDT from Last 3 Months or Most Recently Relevant to Health Maintenance Results * (ABNORMAL) Basic metabolic panel (05/31/2021 5:44 AM EDT) Glucose 110 65 - 110 mg/dL 05/31/2021 7:31 AM [facility] Comment: Non-fastin-110 mg/dL Fasting (minimum 6 hrs): 65-99 mg/dL BUN 14 7 - 18 mg/dL 05/31/2021 7:31 AM [facility] Creatinine 0.54(L) 0.55 - 1.02 mg/dL 05/31/2021 7:31 AM [facility] eGFR (-EQUATORIAL GUINEAN) >60 >60 mL/min/1. 73m2 05/31/2021 7:31 AM [facility] eGFR (NON -Czech) >60 >60 mL/min/1. 73m2 05/31/2021 7:31 AM [facility] Comment: (NOTE) These are estimated [...] 136 - 145 mmol/L 05/31/2021 7:31 AM [facility] Potassium 3.7 3.5 - 5.1 mmol/L 05/31/2021 7:31 AM [facility] Chloride 109(H) 98 - 107 mmol/L 05/31/2021 7:31 AM [facility] CO2 27 21 - 32 mmol/L 05/31/2021 7:31 AM [facility] Anion Gap 6 5 - 15 mmol/L 05/31/2021 7:31 AM [facility] Calcium 8.4(L) 8.5 - 10.1 mg/dL 05/31/2021 7:31 AM [facility] Blood Venipuncture / Unknown 05/31/2021 5:44 AM EDT 05/31/2021 6:37 AM EDT Marco Jones MD LAB [place] [address], [facility] [phone] from Last 3 Months or Most Recently Relevant to Health Maintenance Insurance [employer] Advance Directives * Full ACLS (Latest Code Status on File) Date Activated Date Inactivated Comments 05/31/2021 2:44 AM 05/31/2021 3:27 PM Question Answer Comments With Whom was the Code Status Discussed? Patient Care Teams Train Operator Relationship Specialty Start Date End Date Theresa Guzman MD [address] [place] [address] PCP - General Family Medicine 05/30/21
--- OUTSIDE RECORDS SUMMARY | 2025-09-06 19:25 | XMS_ITS | Encounter Summary ---
Author Organization [facility] Address [address] [place] [address] [place] [address] Phone Care Team Providers Care Under Baster Name Role Phone Theresa Guzman MD Primary Care Provider + Meño Jeffers MD Unavailable [phone] RendonDiya Nascimento MD Unavailable Anup Zavaleta DO Unavailable Lisandro Marvin MD Unavailable Musa Rivera MD Unavailable Erwin Stafford NP Unavailable Theresa Guzman MD Unavailable Aram Kerr MD Unavailable Marlon Ramirez MD Unavailable [phone] Deven Valentine DO Primary Care Provider Deven Valentine DO Unavailable [phone] Encounter Details Date Type Department Care Team (Latest Contact Info) Description 04/17/2019 Transcribe Orders [facility] Laboratory [address] [place] [address] Leana López ARNP Pre-employment examination (Primary Dx) [...] Upcoming Encounters Date Type Department Care Team ([facility] st Contact Info) Description 04/28/2025 Procedure Pass [address] [place] [address] 09/28/2025 8:00 AM EST Office Visit [facility] [address] [place] [address] Deven Valentine DO [address] [place] [address], 2nd [place] [address] 10/12/2025 7:40 AM EST Office Visit [facility] [address] [place] [address] Dr 3rd Floor, [address] [place] [address] Que Flores MD [address] [place] [address], [address] [place] [address] 11/26/2025 10:30 AM EST Appointment [address] [place] [address] Sridhar Chase MD [address] [place] [address], [address] [place] [address] 01/27/2026 11:00 AM EDT Office Visit [facility] Neurology at [address] [place] [address] Tasha Michael MD 60 [place] [address] [email or web address] documented as of this encounter Results * Varicella-zoster (VZV) antibody, IgG (04/17/2019 10:17 AM EDT) Varicella Ab(s) Positive Positive [facility] Blood (Blood) 04/17/2019 10: 17 AM EDT 04/17/2019 10:20 AM EDT Leana SALINAS NON CULTURE MICROBIOLOGY Fi nal Result Performing Organization Address [facility]/ZIP Co de Phone Number [address] [address] * T spot TB test (04/17/2019 10:17 AM EDT) T SPOT Tuberculosis Negative [facility] Comment:TESTING PERFORMED AT [employer] [place] [address] Blood 04/17/2019 10:1 7 AM EDT 04/17/2019 10:20 AM EDT Leana SALINAS LAB BLOOD ORDERABLES Final Result Performing Organization Address [facility]/ZIP Co de Phone Number [address] [address] * Hepatitis B surface antibody (04/17/2019 10:17 AM EDT) HBV SURFACE ANTIBODY Positive [facility] Comment: Unvaccinated: Negative Vaccinated: Positive Blood 04/17/2019 10:1 7 AM EDT 04/17/2019 10:20 AM EDT Leana SALINAS LAB BLOOD ORDERABLES Final Result Performing Organization Address [facility]/ZIP Co de Phone Number [address] [place] [address] documented in this encounter Visit Diagnoses Diagnosis Pre-employment examination- Primary documented in this encounter Additional Health Concerns Infection Onset Date Last Indicated Resolved Time CoV-Risk 12/22/2024 12/22/2024 12/22/2024 2:11 PM EST COVID-19 12/22/2024 12/22/2024 01/12/2025 1:23 AM EST documented as of this encounter Care Teams Under Baster Relationship Specialty Start Date End Date Theresa Guzman MD [address] [place] [address] PCP - General 05/11/14 04/15/22 Deven Valentine DO [address] [place] [address] PCP - General Internal Medicine 04/16/22 Meño Jeffers MD [address] [place] [address] 1st Floor [address] [place] [address] Historical LMR Provider 08/31/17 2 Diya Munguia MD [address] [place] [address] Historical LMR Provider 08/31/17 2 Anup Zavaleta DO [address] [address] Historical LMR Provider 08/31/17 11/18/21 Lisandro Marvin MD [address] [place] [address] Historical LMR Provider 08/31/17 Msua Rivera MD 3500 [facility] 201 [place] [address] Historical LMR Provider 08/31/17 2 Erwin Stafford NP [address] [place] [address] [address] [place] [address] Historical LMR Provider 08/31/17 2 Theresa Guzman MD [address] [place] [address] Historical LMR Provider 08/31/17 Aram Kerr MD [address] [place] [address] 102 [place] [address] Historical LMR Provider 08/31/17 11/18/21 Marlon Ramirez MD [address] [place] [address] Historical LMR Provider 08/31/17 2 Deven Valentine DO [address] [place] [address], 2nd [place] [address] Insurance Assigned Provider 02/14/25 documented as of this encounter Additional Source Comments The information contained in this document represents components of the legal health record. It is not the complete legal health record.[facility]
--- OUTSIDE RECORDS SUMMARY | 2025-09-06 19:25 | XMS_ITS | Encounter Summary ---
Author Organization [facility] Address [address] [place] [address] [address] [place] [address] Phone Care Team Providers Care Seat Covers Trimmer Name Role Phone Lisandro Marvin MD Unavailable [phone] Theresa Guzman MD Unavailable [phone] Deven Valentine DO Primary Care Provider Deven Valentine DO Unavailable [phone] Encounter Details Date Type Department Care Team (Late st Contact Info) Description 08/16/2025 Telephone [facility] [address] [place] [address] Sridhar Chase MD 22 [facility], [address] [place] [address] [email or web address] Social History Tobacco Use Types Packs/Day Years [...] EST Gender Identity Choose not to disclose 10/04/202 3 8:36 AM EDT Sexual Orientation Choose not to disclose 2021 11:26 AM EDT Sexual Orientation Straight 08/09/2022 11 :26 AM EDT documented as of this encounter Progress Notes * Elda Metzger - 08/16/2025 9:14 AM EDT Pt called looking to speak with an fare enforcement officer about a billing concern. Pt can be reached at [phone] documented in this encounter Plan of Treatment Upcoming Encounters Date Type Department Care Team (Late st Contact Info) Description 04/28/2025 Procedure Pass [address] [place] [address] 09/28/2025 8:00 AM EST Office Visit [facility] [address] [place] [address] Deven Valentine DO [address] [place] [address], 2nd [place] [address] 10/12/2025 7:40 AM EST Office Visit [facility] [address] [place] [address] Dr 3rd Floor, [address] [place] [address] Que Flores MD 22 [facility], [address] [place] [address] 11/26/2025 10:30 AM EST Appointment [address] [place] [address] Sridhar Chase MD 22 [facility], [address] [place] [address] 01/27/2026 11:00 AM EDT Office Visit [facility] Neurology at [address] [address] Tasha Michael MD 60 [place] [address] [email or web address] documented as of this encounter Visit Diagnoses Not on filedocumented in this encounter Additional Health Concerns Assessment Noted Time PHQ-9 Depression Total Score: 025 6:58 PM EDT PHQ-2 Depression Total Score: 07/14/20 25 6:58 PM EDT documented as of this encounter Care Teams Seat Covers Trimmer Relationship Specialty Start Date End Date Deven Valentine DO [address] [place] [address] PCP - General Internal Medicine 04/16/22 Lisandro Marvin MD [address] [place] [address] Historical LMR Provider 08/31/17 Theresa Guzman MD [address] [place] [address] Historical LMR Provider 08/31/17 Deven Valentine DO [address] [place] [address] Insurance Assigned Provider 02/14/25 documented as of this encounter Additional Source Comments The information contained in this document represents components of the legal health record. It is not the complete legal health record.[facility]
--- OUTSIDE RECORDS SUMMARY | 2025-09-06 19:25 | XMS_ITS | Encounter Summary ---
Author Organization [facility] Address [address] [place] [address] [place] [address] Phone Care Team Providers Care Stock Associate Name Role Phone Theresa Guzman MD Primary Care Provider + Meño Jeffers MD Unavailable RendonDiya Nascimento MD Unavailable Peggy Zavaleta DO Unavailable [phone] Lisandro Marvin MD Unavailable [phone] Musa Rivera MD Unavailable Erwin Stafford NP Unavailable [phone] Theresa Guzman MD Unavailable Aram Kerr MD Unavailable [phone] Marlon Ramirez MD Unavailable [phone] Deven Valentine DO Primary Care Provider Deven Valentine DO Unavailable [phone] Encounter Details Date Type Department Care Team (Late st Contact Info) Description 11/30/2019 Ancillary Orders [facility], X-Ray - [address] [place] [address] Casey Rausch MD [address] [place] [address] [email or web address] Cough; Shortness of breath Social History Tobacco [...] st Contact Info) Description 04/28/2025 Procedure Pass [address] [place] [address] 09/28/2025 8:00 AM EST Office Visit [facility] Medical [address] [place] [address] Deven Valentine DO [address] [place] [address], 2nd [place] [address] 10/12/2025 7:40 AM EST Office Visit [facility] [address] [place] [address] 3rd Floor, [address] [place] [address] Que Flores MD [address] [facility], [address] [place] [address] 11/26/2025 10:30 AM EST Appointment [address] [place] [address] Sridhar Chase MD [address] [facility], [address] [place] [address] 01/27/2026 11:00 AM EDT Office Visit [facility] Neurology at Hu [address] [place] [address] Tasha Michael MD [address] [place] [address] [email or web address] documented as of this encounter Results * XR PARANASAL SINUSES 3 OR MORE VIEWS (11/30/2019 11:06 AM EST) Anatomical Region Laterality Modality Face Radiographic Peace ging 11/30/2019 11:1 3 AM EST Impressions 11/30/2019 11:14 AM EST No plain film findings of sinusitis. POS - [id number] Narrative 11/30/2019 11:14 AM EST Paranasal sinuses [...] plain film findings of sinusitis. POS - [id number] us Casey Rausch MD IMG XR HEAD AND SHUNT SERIES Final Result documented in this encounter Visit Diagnoses Diagnosis Cough Shortness of breath Cough Shortness of breath documented in this encounter Additional Health Concerns Infection Onset Date Last Indicated Resolved Time CoV-Risk 12/22/2024 12/22/2024 12/22/2024 2:11 PM EST COVID-19 12/22/2024 12/22/2024 01/12/2025 1:23 AM EST documented as of this encounter Care Teams Stock Associate Relationship Specialty Start Date End Date Theresa Guzman MD [address] [place] [address] PCP - General 05/11/14 04/15/22 Deven Valentine DO [address] [place] [address], 2nd [place] [address] PCP - General Internal Medicine 04/16/22 Meño Jeffers MD [address] [place] [address] [address] [place] [address] Historical LMR Provider 08/31/17 2 Diya Munguia MD [address] [place] [address] Historical LMR Provider 08/31/17 2 Peggy Zavaleta DO [address] [address] Historical LMR Provider 08/31/17 11/18/21 Lisandro Marvin MD [address] [place] [address] Historical LMR Provider 08/31/17 Musa Rivera MD [address] [address] Historical LMR Provider 08/31/17 2 Erwin Stafford NP [address] [place] [address] [address] [place] [address] Historical LMR Provider 08/31/17 2 Theresa Guzman MD [address] [place] [address] Historical LMR Provider 08/31/17 Aram Kerr MD [address] [place] [address], [address] [place] [address] Historical LMR Provider 08/31/17 11/18/21 Marlon Ramirez MD [address] [place] [phone] Historical LMR Provider 08/31/17 2 Deven Valentine DO [address] [place] [address], 2nd [place] [address] Insurance Assigned Provider 02/14/25 documented as of this encounter Additional Source Comments The information contained in this document represents components of the legal health record. It is not the complete legal health record.[facility]
--- OUTSIDE RECORDS SUMMARY | 2025-09-06 19:25 | XMS_ITS | Clinical Summary ---
Author Organization [facility] Address [address] [place] [address] Care Team Providers Care Divorce Mediator Name Role Phone Theresa Guzman MD Primary [...] 50 mg by mouth once daily. 03/28/20 Active ONETOUCH VERIO TEST STRIPS Strip Use [...] Plan of Treatment Not on file Insurance [facility] Advance Directives For more information, please contact: [phone] * Full Code (Latest Code Status on File) Date Activated Date Inactivated Comments 05/31/2021 1:14 PM Care Teams Divorce Mediator Relationship Specialty Start Date End Date Theresa Guzman MD [address] [place] [address] PCP - General Family Medicine 05/31/21
--- OUTSIDE RECORDS SUMMARY | 2025-09-06 19:25 | XMS_ITS | Clinical Summary ---
Author Organization [facility] Address [address] [place] [address] Care Team Providers Care Fraud Examiner Name Role Phone Theresa Guzman MD [...] Description 09/16/2025 12:45 PM EST Clinical Support [facility] [address], [place] [address] Kraig Stark MD [address] [place] [phone] Peg Cid Au.D [address] [place] [address] 10/25/2025 11:00 AM EST Office Visit [facility] [address] [place] [address] [address] [place] [address] Jose Raul Paul MD [address] [place] [address] Health Maintenance Due Date Last Done Comments Hepatitis C Virus Screening 1963 HIV Screening 02/27/1976 DTaP/Tdap/Td Vaccines (1 - Tdap) 1982 Pap Smear (Ages 21-65) 02/27/1984 Mammogram 2003 Colonoscopy 02/27/2008 Pneumococcal Vaccines 50+ (1 of 1 - PCV) 2013 Zoster (Shingles) Vaccine (1 of 2) 2013 Influenza Vaccine 06/11/2025 COVID-19 Vaccine (1 - 2023-2 5 season) 2025 RSV Vaccine 50 years and old er and Patients (1 - 1-dose 75+ series) 2038 Hepatitis B Vaccines Aged Out No long er eligible based on patient's age to complete this topic Insurance [employer] MEDICARE PART A & B Care Teams Fraud Examiner Relationship Specialty Start Date End Date Theresa Guzman MD [address] [place] [address] PCP - General Family Medicine 09/15/21
--- OUTSIDE RECORDS SUMMARY | 2025-09-06 19:25 | XMS_ITS | Encounter Summary ---
Author Organization [facility] Address [address] [place] [address] [place] [address] Phone Care Team Providers Care Radial Router Operator Name Role Phone Theresa Guzman MD Primary Care Provider + Meño Jeffers MD Unavailable RendonDiya Nascimento MD Unavailable Peggy Zavaleta DO Unavailable Lisandro Marvin MD Unavailable Musa Rivera MD Unavailable Erwin Stafford NP Unavailable [phone] Theresa Guzman MD Unavailable Aram Kerr MD Unavailable [phone] Marlon Ramirez MD Unavailable [phone] Deven Valentine DO Primary Care Provider Deven Valentine DO Unavailable [phone] Encounter Details Date Type Department Care Team (Late st Contact Info) Description 11/30/2019 Ancillary Orders [facility], X-Ray - [address] [place] [address] Casey Rausch MD [address] [place] [address] [email or web address] Cough; Shortness of breath Social [...] Contact Info) Description 04/28/2025 Procedure Pass [address] [place] [address] 09/28/2025 8:00 AM EST Office Visit [facility] [address] [place] [address] Deven Valentine DO [address] [place] [address], 2nd [place] [address] 10/12/2025 7:40 AM EST Office Visit [facility] [address] [place] [address] 3rd Floor, [address] [place] [address] Que Flores MD [address] [facility], [address] [place] [address] 11/26/2025 10:30 AM EST Appointment [address] [place] [address] Sridhar Chase MD [address] [facility], [address] [place] [address] 01/27/2026 11:00 AM EDT Office Visit [facility] Neurology at Hu [address] [place] [address] Tasha Michael MD [address] [place] [address] [email or web address] documented as of this encounter Results * XR CHEST PA AND LATERAL 2 VIEWS (11/30/2019 11:07 AM EST) Anatomical Region Laterality Modality Chest Radiographic Peace ging 11/30/2019 11:1 2 AM EST Impressions 11/30/2019 11:13 AM EST No acute cardiopulmonary abnormality detected. POS - [id number] Narrative 11/30/2019 11:13 AM EST PA and [...] No acute cardiopulmonary abnormality detected. POS - [id number] us Casey Rausch MD IMG XR CHEST Final Result documented in this encounter Visit Diagnoses Diagnosis Cough Shortness of breath Cough Shortness of breath documented in this encounter Additional Health Concerns Infection Onset Date Last Indicated Resolved Time CoV-Risk 12/22/2024 12/22/2024 12/22/2024 2:11 PM EST COVID-19 12/22/2024 12/22/2024 01/12/2025 1:23 AM EST documented as of this encounter Care Teams Radial Router Operator Relationship Specialty Start Date End Date Theresa Guzman MD [address] [place] [address] PCP - General 05/11/14 04/15/22 Deven Valentine DO [address] [place] [address], 2nd [place] [address] PCP - General Internal Medicine 04/16/22 Meño Jeffers MD [address] [place] [address] [address] [place] [address] Historical LMR Provider 08/31/17 2 Diya Munguia MD [address] [place] [address] Historical LMR Provider 08/31/17 2 Peggy Zavaleta DO [address] [address] Historical LMR Provider 08/31/17 11/18/21 Lisandro Marvin MD [address] [place] [address] Historical LMR Provider 08/31/17 Musa Rivera MD [address] [address] Historical LMR Provider 08/31/17 2 Erwin Stafford NP [address] [place] [address] [address] [place] [phone] Historical LMR Provider 08/31/17 2 Theresa Guzman MD [address] [place] [address] Historical LMR Provider 08/31/17 Aram Kerr MD [address] [place] [address] [address] [place] [address] Historical LMR Provider 08/31/17 11/18/21 Marlon Ramirez MD [address] [place] [phone] Historical LMR Provider 08/31/17 2 Deven Valentine DO [address] [place] [address], 2nd [place] [address] Insurance Assigned Provider 02/14/25 documented as of this encounter Additional Source Comments The information contained in this document represents components of the legal health record. It is not the complete legal health record.[facility]
== END 2025-09-06 17:13 | disposition home or self-care (01) ==
LOC: HO.HOP 17:12
PROVIDERS: PCP Family Medicine; Visit Provider Psychiatry & Neurology Psychiatry
DX: F43.10 Post-traumatic stress disorder, unspecified (principal); F34.0 Cyclothymic disorder; F41.1 Generalized anxiety disorder
CPT/HCPCS: 99214

== ENCOUNTER 2025-10-05 13:59 | Outpatient (AMB) | payer MEDICARE, OTHER, SELFPAY ==
--- OUTSIDE RECORDS SUMMARY | 2025-09-30 02:02 | XMS_ITS | Encounter Summary ---
Author Organization [facility] Address [address] [place] [address] Care Team Providers Care Fluid Designer Name Role Phone Theresa Guzman MD Primary Care Provider [phone] Reason for Visit * Reason Comments Palpitations woke up with palpita tions, nausea, CP. Pt thinks missed dose of atenolol, pt reported to ems HR was 150's, hx svt and prior mi during covid, ems reports high 110s BPM and on arrival down to 70s BPM, pt took 100mg atenolol. EMS reports 22 L ac EKG WNL [id number] Encounter Details Date Type Department Care Team (Latest Contact Info) Description 09/30/2025 2:02 AM EST - 09/30/2025 9:02 AM [facility] Encounter [facility] [address] [place] [phone] Jian Evans, DO [address] [place] [address] Callum Mondragon MD [address] [place] [address] [phone] (Work) Palpitation (Primary Dx); Chest pain, unspecified type Discharge Disposition: Home or Self Care Social History Tobacco Use Types Packs/Day Years Used Date Smoking Tobacco: Former Cigarettes 1 15 0 04/30/1978 - 04/30/1993 Smokeless Tobacco: Never Alcohol Use Standard Drinks/Week Comments Yes 7 (1 standard drink = 0.6 oz pur e alcohol) Interpersonal Safety Answer Date Record ed Is there anyone in your life that is hurting or threatening you in anyway? no 10/01/2025 Physical Indicators of Abuse No evidence of phys ical abuse 10/01/2025 Comments Unknown Sex and Gender Information Value Date Recorded Sex Assigned at Female 09/30/2025 2:47 AM EST Legal Sex Female 5:51 PM EST Gender Identity Female 09/30/2025 2:47 AM EST Sexual Orientation Not on file documented as of this encounter Last Filed Vital Signs Vital Sign Reading Time Taken Comments Blood Pressure 123/55 09/30/2025 6:00 AM EST Pulse 66 09/30/2025 3:57 AM EST Temperature 36.4 C (97.6 F) 09/30/2025 2:09 AM EST Respiratory Rate 18 09/30/2025 6:00 AM EST Oxygen Saturation 97% 09/30/2025 6:00 AM EST Inhaled Oxygen Concentration - - Weight 78.9 kg (173 lb 15.1 oz) 09/30/2025 7:58 AM EST Height - - Body Mass Index 24.96 05/31/2021 2:45 AM EDT documented in this encounter Discharge Instructions * Discharge Instructions* Callum Mondragon MD - 09/30/2025 8:48 AM EST You were seen and evaluated in the emergency department for episodes of palpitations or feeling like your heart is racing. You had blood work which did not show any signs of infections or low blood counts. Your EKG did notshow any issues with the electrical signals of your heart. You had ultrasounds of your legs which did not show any signs of DVT or blood clots. Follow up with your primary care doctor within the next 1-2 days. Continue your home medications as prescribed. If you have persistent pain feeling like your heart is racing new or worsening symptoms or any other concerns return to the emergency department immediately. documented in this encounter Medications at Time of Discharge albuterol sulfate 90 mcg/actuation HFA aerosol inhaler Inhale 2 puffs into the lungs every 4 (four) hours as needed for wheezing. 6.7 g 05/30/2021 ascorbic acid, vitamin C, (VITAMIN C) 250 mg tablet Take 250 mg by mouth daily. aspirin 81 mg EC delayed release tablet Take 1 tablet (81 mg total) by mouth daily. 30 tablet 06/01/2021 atenoloL (TENORMIN) 50 mg tablet Take 50 mg by mouth daily. 12/06/2020 cetirizine (ZYRTEC) 10 mg tablet Take 10 mg by mouth daily as needed. cholecalciferol, vitamin D3, 25 mcg (1,000 unit) tablet Take 1,000 Units by mouth daily. cinnamon bark 500 mg capsule Take 1,000 mg by mouth 2 (two) times daily. divalproex (DEPAKOTE DR) 250 mg delayed release tablet Take 500 mg by mouth nightly. 05/04/2021 fluticasone propionate (FLOVENT HFA) 44 mcg/actuation inhaler Inhale 1 puff into the lungs as needed. 07/29/2020 gabapentin (NEURONTIN) 100 mg capsule Take 100 mg by mouth 3 (three) times daily. 04/28/2021 lisinopriL (PRINIVIL,ZESTRIL ) 10 mg tablet Take 30 mg by mouth daily. 11/24/2020 tiotropium (SPIRIVA WITH HANDIHALER) 18 mcg capsule for inhalation Inhale 18 mcg into the lungs daily. documented as of this encounter ED Notes * Thelma Guillory RN - 09/30/2025 7:08 AM EST 7:08 AM: Assumed care. Pt changed into gown, awaiting ultrasound * Tim Mendoza RN - 09/30/2025 4:23 AM EST 4:23 AM Pt reports improvement of sx after Maalox. Pt ambulated to bathroom gait steady. Awaiting US in AM for elevated D-dimer. * Tim Mendoza RN - 09/30/2025 3:55 AM EST 3:55 AM Provider in to speak with patient at this time. * Tim Mendoza RN - 09/30/2025 3:48 AM EST 3:48 AM Pt rang call light to say she was again having some burning mid chest between breasts, no associated sx. Provider aware, maalox ordered and repeat EKG * Callum Mondragon MD - 09/30/2025 2:12 AM EST Images from the original note were not included. Emergency Department Attending Evaluation Note ED RM 8 TRIAGE Chief Complaint Patient presents with Palpitations woke up with palpitations, nausea, CP. Pt thinks missed dose of atenolol, pt reported to ems HR [id number], hx svt and prior mi during covid, ems reports high 110s BPM and on arrival down to 70s BPM, pt took 100mg atenolol. EMS reports 22 L ac EKG WNL [id number] Reviewed nurses notes, vital signs, pulse oximetry, other history and pertinent diagnostic tests History of Present Illness: History obtained from patient Well-appearing very pleasant Gerda Sears is a 60 y.o. female with history of increased BMI, type 2 NSTEMI 2020, COVID illness, bipolar, hypertension, interstitial lung disease, SVT who presents with EMS from home with complaints of palpitation, chest discomfort.. Patient noted has been doing well no recent illness. She states about 9:00 p.m. yesterday night developed gradual onset of nausea and just not feeling well. States as she was falling asleep she then developed gradual onset of palpitation but was mild. She eventually fell asleep and woke up with continued palpitation and noted retrosternal chest pain discomfort. She noted is difficult to describe her pain but she remember it was initially with the pain and palpitation. She noted the pain lasted for several minutes but has since subsided. She had no associated diaphoresis, no arm/neck/jaw pain,no vomiting diarrhea, no fever chills, no coughing/hemoptysis. Has had no abdomen back pain, no lesion/rash, no urinary/vaginal complaints. No other muscle/joint pain or swelling, no extremity edema/pain. Has had no recent long distance travel, no recent surgeries, no recent admission, no known sick exposure. She states she does not have a history SVT was not recalling if she took her dose of the atenolol when she had her onset of palpitation. So she took a dose of the atenolol and noted since then her palpitation that resolved. Review of Systems All other systems reviewed and are negative except as noted on HPI PHYSICAL EXAM BP (!) 117/59 Pulse 66 Temp 97.6 ??F (36.4 ??C) Resp 17 Wt 78.9 kg SpO2 99% BMI 24.96 kg/m?? GENERAL: alert; no acute distress, non-diaphoretic, good eye contact, nontoxic, pleasant appearance SKIN: warm; dry; normal in color, normal cap refill, no lesion/rash, MM moist, normal skin tugor HEAD: no visible trauma; normocephalic NECK: Trachea midline; normal range of motion; not visible trauma, supple, no nuchal rigidity. Normal soft tissue exam EYE: normal conjunctiva/eyelid; EOMI, PERRLA CARDIOVASCULAR: normal rate; regular rhythm; normal peripheral perfusion, normal equal palpable pulses B/L RESPIRATORY: Lungs CTA; respirations non-labored; no use of accessory muscles, no retraction. no chest wall tenderness GASTROINTESTINAL: soft; non distended; no rebound; no guarding; no pulsatile mass, no palpable hernia Tenderness: No EXTREMITIES: no visible deformity, no visible trauma, NVI, no extremity edema/tenderness, active/passive ROM of all jts with no pain/tenderness SPINE: NT, no stepoff/crepitus NEUROLOGICAL: Oriented x3; no focal neurological deficit observed; normal gait PSYCHIATRIC: cooperative; appropriate affect; normal judgement Medical Decision Making / Differential Diagnosis & ED Course: Gerda Sears is a 60 y.o. female with history of SVT on atenolol. She also use the Tylenol due to history of a hypertension. Presents complaining of gradual onset feeling nausea since 9:00 p.m. yesterday night with associated eventually developing gradual onset of palpitation with associated chest pain. Pain is retrosternal lasting several minutes but then resolved spontaneously. No other associated ACS/PE/aortic pathology equivalent complaints. I have considered emergent and/or life/limb-threatening etiologies, including but not limited to: Cardiac arrhythmia, cardiomyopathy, atypical ACS, anemia, thyroid disorder however doubt acute Graves, acute myxedema Do not suspect acute sepsis, acute intestinal pathology, acute endocarditis/myocarditis Therefore, the plan/course is as follows: Labs, x-ray, EKG Repeat Evaluation / Exam: On re-evaluate resting comfortably no distress. Noted that she felt as if the palpitation in his coming back however heart rate 70-80 beats per minute on front desk monitor. Continue do a. Non diaphoretic, maintaining airway well, very pleasant. Pretest probability for PE is low. Patient presents complaining of palpitation chest pain as noted above. Dimer results has been reviewed. She notes in 2020 she had a NSTEMI but since it was the COVID pandemic she never had a heart catheterization to confirm such concern for ME. She has no known history of previous PE, DVT or known active cancer. She presents with complaints of palpitation, associated chest pain however she has had notachycardia here, no lower extremity edema/pain. She does have a contrast allergy to gadolinium. At this time she off to obtain bilateral lower extremity ultrasound. If negative, remained asymptomatic with the plan for discharge. Patient is in agreement with the plans. Had no further question or concern. 0620 Patient has been resting comfortably. Remained asymptomatic. Results reviewed with her. Awaiting bilateral lower extremity ultrasound. 0700 Patient remained stable during my shift. Case discussed and transferred to incoming ER provider (Dr. Mondragon) to follow up results and re-evaluate. Number and Complexity of Problems Addressed: Differential Diagnosis: See Above Records reviewed from external provider, facility, or healthcare organization: Pts previous labs, radiographic studies and medical charts has been reviewed History obtained from other source: History obtained from pt Independent visualization of image (radiology, ekg, rythym strip): I have directly visualized and independently interpreted the imaging as well. The patient had the following imaging; chest x-ray, the interpretation is no free air, no pneumothorax I will follow up with the official radiologist reading. EKG independently viewed and interpreted by myself, I agree with computerized report (as annotated), please see scanned EKG. EKG / Rhythm strip shows : EKG 209 a.m. normal sinus rhythm 70 beats per minute, inverted T-wave AVR, V1, Q-wave AVR, lead 3, no acute ischemic changes, first-degree AV block, QTC 416, Tests Considered But Not Performed Tests considered but not performed ultimately not pursued after discussion with patient / family. No CTA chest because risk of radiation and do not suspect acute PE, pretest about boluses low Prescription Medication Management Current Prescription Medications Reviewed and Continued Social determinants of health considered and diagnosis and/or treatments were found to be significantly impacted by and limited due to patient's: Patient specific factors lack of access to medical care history of psychiatric disease Patients history, exam, vitals, past history, clinical course, labs, and imaging are not indicativeof a life threatening disease process. An in depth discussion of patients chief complaint occurred.Admission to the hospital and ED observation has been considered but patient is stable for discharge as noted above. Patient was given precautions, told to return with worsening symptoms or new symptoms. Follow up was strongly encouraged. Jian Evans DO Emergency Medicine Attending Physician [phone] (B) [phone] (ED) 09/30/2025 2:12 AM DISCLAIMER: This chart was created using [employer] dictation software. Efforts were made by me to ensure accuracy, however some errors may be present due to limitation of this technology and occasionally words are not transcribed as intended. Procedures Attestation/Critical Care Comments as of 10/03/25 0915 [facility] Sep 30, 2025 0703 Patient is a 60-year-old female who presents to emergency depart with a episodes of palpitations awaiting lower extremity ultrasound. [JW] 0847 No definite evidence of deep venous thrombus identified in the above-stated segments of bilateral lower extremities. 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 [JW] Comments User Index [JW] Callum Mondragon MD Clinical Impressions as of 10/03/25 0915 Palpitation Chest pain, unspecified type ED Disposition Observation Jian Evans DO 09/30/25628 Jian Evans DO 09/30/25 0630 Callum Mondragon MD 10/03/2515 documented in this encounter Plan of Treatment Not on file documented as of this encounter Procedures Procedure Name Priority Date/Time Associated Diagnosis Comments US DUPLEX LOWER EXTREMITY VENOUS BILATERAL STAT 09/30/2025 8:24 AM EST EKG Routine 09/30/2025 3:53 AM EST TROPONIN T HIGH SENSITIVITY, 1 HOUR WITH REFLEX ([facility] LMW YH) STAT - Timed 09/30/2025 3:28 AM EST XR CHEST PA AND LATERAL STAT 09/30/2025 2:46 AM EST TROPONIN T HIGH SENSITIVITY, 0 HOUR BASELINE WITH REFLEX ( [facility] LMW YH) STAT 09/30/2025 2:15 AM EST COMPREHENSIVE METABOLIC PANEL STAT 09/30/2025 2:13 AM EST TSH W/REFLEX TO FT4 ( [facility] LMW Q YH) STAT 09/30/2025 2:13 AM EST CBC WITH AUTO DIFFERENTIAL STAT 09/30/2025 2:13 AM EST PROTIME AND INR STAT 09/30/2025 2:13 AM EST D-DIMER, QUANTITATIVE STAT 09/30/2025 2:13 AM EST CBC AND DIFFERENTIAL STAT 09/30/2025 2:13 AM EST T4, FREE Routine 09/30/2025 2:13 AM EST COMPREHENSIVE METABOLIC PANEL STAT 09/30/2025 2:13 AM EST EKG Routine 09/30/2025 2:09 AM EST documented in this encounter Results * US Duplex Lower Extremity Venous Bilateral (09/30/2025 8:24 AM EST) Anatomical Region Laterality Modality Vascular, Thigh, Leg Ultrasound 09/30/2025 8:26 AM EST Impressions 09/30/2025 8:27 AM EST No definite evidence of deep venous thrombus identified in the above-stated segments of bilateral lower extremities. Reported and signed by: Marty Kearns MD Narrative 09/30/2025 8:27 AM EST BILATERAL LOWER EXTREMITY VENOUS ULTRASOUND WITH DOPPLER CLINICAL INDICATION: abn dimer, ?DVT COMPARISON: None Right lower extremity findings: Right common femoral V: Patent Right femoral V: Patent Right popliteal V: Patent Right visualized calf segments: The posterior tibialis and peroneal veins are patent Response to augmentation: Normal in visualized segments Left lower extremity findings: Left common femoral V: Patent Left femoral V: Patent Left popliteal V: Patent Left visualized calf segments: The posterior tibialis and peroneal veins are patent Response to augmentation: Normal in visualized segments Procedure Note Marty Kearns MD - 09/30/2025 BILATERAL LOWER EXTREMITY VENOUS ULTRASOUND WITH DOPPLER CLINICAL INDICATION: abn dimer, ?DVT COMPARISON: None Right lower extremity findings: Right common femoral V: Patent Right femoral V: Patent Right popliteal V: Patent Right visualized calf segments: The posterior tibialis and peroneal veinsare patent Response to augmentation: Normal in visualized segments Left lower extremity findings: Left common femoral V: Patent Left femoral V: Patent Left popliteal V: Patent Left visualized calf segments: The posterior tibialis and peroneal veinsare patent Response to augmentation: Normal in visualized segments IMPRESSION: No definite evidence of deep venous thrombus identified in theabove-stated segments of bilateral lower extremities. Reported and signed by: Marty Kearns MD Jian Evans DO IMG US ORDERABLES Final Result * EKG, REPEAT (09/30/2025 3:53 AM EST) [facility] Heart Rate 66 bpm [facility] EKG QRS Interval 98 ms [facility] EKG QT Interval 409 ms [facility] EKG QTC Interval 429 ms [facility] EKG P Rison 80 deg [facility] EKG QRS Rison 64 deg [facility] EKG T Wave Rison 33 deg [facility] EKG P-R Interval 237 msec [facility] EKG SEVERITY Abnormal ECG severity [facility] EKG Comment::Sinus rhythm:Prolon ged NM interval:Abnormal ECG:No significant change from previous:Electronically Signed On 09-30-2025 8:37:13 EST by JAMIE GLORIA MD OTHER / Unknown 09/30/2025 3 :53 AM EST us Jian Evans DO ECG ORDERABLES Final Result [facility] EKG * (ABNORMAL) Troponin T High Sensitivity, 1 Hour With Reflex ([facility] Y) (09/30/2025 3:28 AM EST) Pathologist [facility] High Sensitivity Troponin T 13(H) See Comment ng/L 09/30/2025 9:26 AM EST [facility] Comment: High Sensitivity Troponin T levels should be interpreted in the context of the [facility] Care Signature pathway. Corrected result: Previously reported as <6 ng/L on 09/30/2025 at 3:54 AM EST 1 hour Delta from 0 Hour, HS-Troponin T 7 ng/L 09/30/2025 9:26 AM EST [facility] Comment:Corrected result: Pr eviously reported as 0 ng/L on 09/30/2025 at 3:54 AM EST Blood Venipuncture / Unknown 09/30/2025 3:28 AM EST 09/30/2025 3:33 AM EST us Jian Evans LAB BLOOD ORDERABLES [place] [address], [facility] [phone] * CXR (09/30/2025 2:46 AM EST) Anatomical Region Laterality Modality Chest Radiographic [place] ging 09/30/2025 8:27 AM EST Impressions 09/30/2025 8:27 AM EST No evidence for an acute cardiopneumonic process. [facility] Radiology Notification System Classification: Routine. Reported and signed by: Dilip Mckee MD Narrative 09/30/2025 8:27 AM EST PROCEDURE: XR CHEST PA AND LATERAL CLINICAL INDICATION: Chest pain, palpitations TECHNIQUE: PA and lateral views COMPARISON: AP chest 05/30/2021 FINDINGS: Lungs are relatively well expanded without evidence for infiltrate. Pleural spaces appear clear. Cardiomediastinal silhouette and pulmonary vasculature appear within normal limits. No acute osseous fracture noted. Procedure Note Dilip Mckee MD - 09/30/2025 PROCEDURE: XR CHEST PA AND LATERAL CLINICAL INDICATION: Chest pain, palpitations TECHNIQUE: PA and lateral views COMPARISON: AP chest 05/30/2021 FINDINGS: Lungs are relatively well expanded without evidence for infiltrate.Pleural spaces appear clear. Cardiomediastinal silhouette and pulmonaryvasculature appear within normal limits. No acute osseous fracturenoted. IMPRESSION: No evidence for an acute cardiopneumonic process. [facility] Radiology Notification System Classification: Routine. Reported and signed by: Dilip Mckee MD Jian Evans DO IMG DIAGNOSTIC IMAGING ORDERABL ES Final Result * Troponin T High Sensitivity, Emergency; 0 hour baseline AND 1 hour with reflex (3 hour) (:15 AM EST) [facility] High Sensitivity Troponin T <6 See Comment ng/L 09/30/2025 2:36 AM [facility] Comment:High Sensitivity Tro ponin T levels should be interpreted in the context of the [facility] Care Signature pathway. Blood Venipuncture / Unknown 09/30/2025 2:15 AM EST 09/30/2025 2:18 AM EST Jian Bealan LAB BLOOD ORDERABLES Final Resu lt Performing Organization Address City/[facility]/ZIP Co de Phone Number [address] [phone] * T4, free (09/30/2025 2:13 AM EST) [facility] Free T4 1.30 0.76 - 1.46 ng/dL 09/30/2025 3:07 AM [facility] Blood Venipuncture / Unknown 09/30/2025 2:13 AM EST 09/30/2025 2:18 AM EST Jian Evans DO LAB BLOOD ORDERABLES Final Resu lt Performing Organization Address City/[facility] [place] [address], [facility] [phone] * (ABNORMAL) CBC auto differential (09/30/2025 2:13 AM EST) [facility] WBC 9.0 4.0 - 11.0 x1000/ L 09/30/2025 2:23 AM [facility] RBC 3.99(L) 4.00 - 6.00 M/ L 09/30/2025 2:23 AM [facility] Hemoglobin 12.2 11.7 - 15.5 g/dL 09/30/2025 2:23 AM [facility] Hematocrit 36.00 35.00 - 45.00 % 09/30/2025 2:23 AM [facility] MCV 90.2 80.0 - 100.0 fL 09/30/2025 2:23 AM [facility] MCH 30.6 27.0 - 33.0 pg 09/30/2025 2:23 AM [facility] MCHC 33.9 31.0 - 36.0 g/dL 09/30/2025 2:23 AM [facility] RDW-CV 12.1 11.0 - 15.0 % 09/30/2025 2:23 AM [facility] Platelets 279 150 - 420 x1000/ L 09/30/2025 2:23 AM [facility] MPV 8.9 8.0 - 12.0 fL 09/30/2025 2:23 AM [facility] Neutrophils 63.2 39.0 - 72.0 % 09/30/2025 2: AM [facility] Lymphocytes 27.2 17.0 - 50.0 % 09/30/2025 2: AM [facility] Monocytes 7.6 4.0 - 12.0 % 09/30/2025 2:23 AM [facility] Eosinophils 1.5 0.0 - 5.0 % 09/30/2025 2:23 AM [facility] Basophil 0.3 0.0 - 1.4 % 09/30/2025 2:23 AM [facility] Immature Granulocytes 0.2 0.0 - 1.0 % 09/30/2025 2:23 AM [facility] nRBC 0.0 0.0 - 1.0 % 09/30/2025 2:23 AM [facility] Absolute Lymphocyte Count 2.46 0.60 - 3.70 x 1000/ L 09/30/2025 2:23 AM [facility] Monocyte Absolute Count 0.69 0.00 - 1.00 x 1000/ L 09/30/2025 2:23 AM [facility] Eosinophil Absolute Count 0.14 0.00 - 1.00 x 1000/ L 09/30/2025 2:23 AM [facility] Basophil Absolute Count 0.03 0.00 - 1.00 x 1000/ L 09/30/2025 2:23 AM [facility] Absolute Immature Granulocyte Count 0.02 0.00 - 0.30 x 1000/ L 09/30/2025 2:23 AM [facility] Absolute nRBC 0.00 0.00 - 1.00 x 1000/ L 09/30/2025 2:23 AM [facility] ANC (Abs Neutrophil Count) 5.70 2.00 - 7.60 x 1000/ L 09/30/2025 2:23 AM [facility] Blood Venipuncture / Unknown 09/30/2025 2:13 AM EST 09/30/2025 2:18 AM EST Jian Evans DO LAB BLOOD ORDERABLES Final Resu lt [address] [phone] * (ABNORMAL) Comprehensive metabolic panel (09/30/2025 2:13 AM EST) Sodium 139 136 - 145 mmol/L 09/30/2025 2:53 AM [facility] Potassium 3.8 3.5 - 5.1 mmol/L 09/30/2025 2:53 AM [facility] Chloride 107 98 - 107 mmol/L 09/30/2025 2:53 AM [facility] CO2 26 21 - 32 mmol/L 09/30/2025 2:53 AM [facility] Anion Gap 6 5 - 15 mmol/L 09/30/2025 2:53 AM [facility] Glucose 183(H) 65 - 110 mg/dL 09/30/2025 2:53 AM [facility] Comment: Non-fastin-110 mg/dL Fasting (minimum 6 hrs): 65-99 mg/dL BUN 14 7 - 18 mg/dL 09/30/2025 2:53 AM [facility] Creatinine 0.68 0.55 - 1.02 mg/dL 09/30/2025 2:53 AM [facility] Calcium 8.5 8.5 - 10.1 mg/dL 09/30/2025 2:53 AM [facility] Total Protein 6.6 6.4 - 8.2 g/dL 09/30/2025 2:53 AM [facility] Albumin 3.5 3.4 - 5.0 g/dL 09/30/2025 2:53 AM [facility] Globulin 3.1 2.5 - 5.0 g/dL 09/30/2025 2:53 AM [facility] Total Bilirubin 0.2 0.2 - 1.0 mg/dL 09/30/2025 2:53 AM [facility] Comment:Use of this assay is not recommended for patients undergoing treatment with Eltrombopag due to the potential for falsely elevated results. Alkaline Phosphatase 91 45 - 117 U/L 09/30/2025 2:53 AM [facility] Alanine Aminotransferase (ALT) 42 12 - 78 U/L 09/30/2025 2:53 AM [facility] Aspartate Aminotransferase (AST) 16 15 - 37 U/L 09/30/2025 2:53 AM [facility] eGFR (Creatinine) >60 >=60 mL/min/1. 73m2 09/30/2025 2:53 AM [facility] Comment: [facility] utilizes CKD-EPI Creatinine 2020 to report eGFR. Values < 60 mL/min/1.73 m2 may indicate CKD if present for more than three months AND creatinine is at steady state. The eGFR provides a rough estimate of kidney function. For further guidance, please refer to the CKD: Adult [employer]rote[employer] Signature pathway. Creatinine Delta 09/30/20 2:53 AM [facility] Comment:No previous creatini ne <5.00 mg/dL is available within the previous 12 months to calculate a delta creatinine. Blood Venipuncture / Unknown 09/30/2025 2:13 AM EST 09/30/2025 2:18 AM EST us Jian Evans DO LAB BLOOD ORDERABLES Final Resu lt [address] [phone] * (ABNORMAL) D-dimer, quantitative (09/30/2025 2:13 AM EST) Pathologist [facility] D-Dimer 0.55(H) <0.50 mg/L FEU 09/30/2025 2:47 AM [facility] Comment: CLINICAL CUT OFF VALUE 0.50 mg/L FEU A D-Dimer result of > or = 0.50 mg/L FEU is considered positive* A D-Dimer result of < 0.50 mg/L FEU is considered negative This test is intended to be used as an exclusionary test for diagnosis of PE/DVT in outpatients with a low or medium clinical probability. Blood Venipuncture / Unknown 09/30/2025 2:13 AM EST 09/30/2025 2:18 AM EST Jian Evans DO LAB BLOOD ORDERABLES Final Resu lt Performing Organization Address [facility] Phone Number [address] [phone] * Protime and INR (09/30/2025 2:13 AM EST) Pathologist [facility] Prothrombin Time 10.4 9.0 - 12.0 seconds 09/30/2025 2:47 AM [facility] INR 1.05 0.90 - 1.10 09/30/2025 2:47 AM [facility] Comment: RECOMMENDED INR THERAPEUTIC RANGES: STANDARD INTENSITY......2.0-3.0 HIGH INTENSITY..........2.5-3.5 Blood Venipuncture / Unknown 09/30/2025 2:13 AM EST 09/30/2025 2:18 AM EST Jian Evans DO LAB BLOOD ORDERABLES Final Resu lt Performing Organization Address [facility] de Phone Number [address] [phone] * (ABNORMAL) TSH w/reflex to FT4 (09/30/2025 2:13 AM EST) TSH 4.46(H) 0.36 - 3.74 uIU/mL 09/30/2025 2:53 AM EST [facility] Comment:As TSH is known to n aturally increase in winter, with age and due to certain non-thyroidal illnesses, please consider retesting adults with mild abnormalities (ie, TSH <10 IU/mL) after 2-3 months prior to initiating therapy. Blood Venipuncture / Unknown 09/30/2025 2:13 AM EST 09/30/2025 2:18 AM EST us Jian Evans DO LAB BLOOD ORDERABLES Final Resu lt Performing Organization Address [facility] Co de Phone Number [address] [phone] * EKG (09/30/2025 2:09 AM EST) Heart Rate 70 bpm [facility] EKG QRS Interval 100 ms [facility] EKG QT Interval 385 ms [facility] EKG QTC Interval 416 ms [facility] EKG P Rison 80 deg [facility] EKG QRS Rison 58 deg [facility] EKG T Wave Rison 25 deg [facility] EKG P-R Interval 233 msec [facility] EKG SEVERITY Abnormal ECG severity [facility] EKG Comment::EKG 209 a.m. normal sinus rhythm 70 beats per minute, inverted T-wave AVR,:V1,:Q-wave AVR, lead 3, no acute ischemic changes, first-degree AV block, QTC:416,:Electronically Signed On 09-30-2025 2:16:05 EST by JIAN EVANS MD OTHER / Unknown 09/30/2025 2 :09 AM EST us Jian Evans DO ECG ORDERABLES Edited Result - Final Performing Organization Address City/[facility]/ZIP Co de Phone Number [facility] EKG documented in this encounter Visit Diagnoses Diagnosis Palpitation- Primary Palpitations Chest pain, unspecified type documented in this encounter Administered Medications Inactive Administered Medications - up to 3 most recent administrations Medication Order MAR Action Action Date Dose Rate Site aluminum-magnesium hydroxide-simethicone (MAALOX) 200-200-20 mg/5 mL suspension 30 mL 30 mL, Oral, ONCE, On Jeane 09/30/25 at 0400, For 1 dose, Do not give if patient NPO for procedure Common Side Effects: Chalky taste, stomach upset. Given 09/30/2025 3:55 AM EST 30 mLs aspirin 81 mg chewable tablet Starting on Jeane 09/30/25 at 0209, For 1 dose, Created by cabinet override Common Side Effects: Stomach upset, bleeding, bruising., Created by cabinet override Given by Other. 09/30/2025 2:09 AM EST ondansetron (PF) (ZOFRAN) 4 mg/2 mL injection Starting on Jeane 09/30/25 at 0208, For 1 dose, Created by cabinet override Irritant Given by Other. 09/30/2025 2:10 AM EST documented in this encounter Active and Recently Administered Medications Times are shown in EST. Scheduled Medication Order 09/28/2025 09/29/2025 09/30/2025 aluminum-magnesium hydroxide-simethicone (MAALOX) 200-200-20 mg/5 mL suspension 30 mL (COMPLETED) 30 mL, Oral, ONCE, On Jeane 09/30/25 at 0400, For 1 dose, Do not give if patient NPO for procedure Common Side Effects: Chalky taste, stomach upset. 0355 (Given - Provid er: Tim Mendoza RN) No Frequency Medication Order 09/28/2025 09/29/2025 09/30/2025 aspirin 81 mg chewable tablet (COMPLETED) Starting on Jeane 09/30/25 at 0209, For 1 dose, Created by cabinet override Common Side Effects: Stomach upset, bleeding, bruising., Created by cabinet override 0209 (Given by Other . - Provider: Danae Arciniega RN - Comment: [facility]) ondansetron (PF) (ZOFRAN) 4 mg/2 mL injection (COMPLETED) Starting on Jeane 09/30/25 at 0208, For 1 dose, Created by cabinet override Irritant 0210 (Given by Other . - Provider: Danae Arciniega RN - Comment: [facility]) documented in this encounter Care Teams Fluid Designer Relationship Specialty Start Date End Date Theresa Guzman MD [address] [place] [phone] PCP - General Family Medicine 05/30/21 documented as of this encounter
--- OUTSIDE RECORDS SUMMARY | 2025-10-01 12:47 | XMS_ITS | Encounter Summary ---
Author Organization [facility] Address [address] [place] [phone] Care Team Providers Care Event Promoter Name Role Phone Theresa Guzman MD Primary Care Provider [phone]- [phone] Reason for Visit * Reason Comments Abnormal Lab Pt called back to ER for a repeat of a troponin after a lab adjustment post discharge. Encounter Details Date Type Department Care Team (Late st Contact Info) Description 10/01/2025 12:47 PM EST - 10/01/2025 6:07 PM EST Emergency [facility] [address] [place] [phone] Johanny Waller MD [address] [place] [phone] (Work) Palpitations (Primary Dx); Chest pain, unspecified type Discharge [...] Sign Reading Time Taken Comments Blood Pressure 124/82 10/01/2025 5:50 PM EST Pulse 58 10/01/2025 5:50 PM EST Temperature 36.4 C (97.6 F) 10/01/2025 12:44 PM EST Respiratory Rate 11 10/01/2025 5:50 PM EST Oxygen Saturation 97% 10/01/2025 5:50 PM EST Inhaled Oxygen Concentration - - Weight 78.9 kg (173 lb 15.1 oz) 025 12:44 PM EST Height - - Body Mass Index 24.96 05/31/2021 2:45 AM EDT documented in this encounter Discharge Instructions * Discharge Instructions* Johanny Waller MD - 10/01/2025 5:52 PM EST Testing today reassuring in the heart. Take the acid medication twice a day for 10 days to see if it has any effect on your symptoms, and if it is helpful can continue otherwise stop. Please follow up with your primary care and dance professor and if you have new or worsening symptoms please return. * Attachments The following attachments cannot be sent through Care Everywhere. * Chest Pain Discharge Instructions (Austrian) documented in this encounter Medications at Time [...] Take 500 mg by mouth nightly. 05/04/2021 famotidine (PEPCID) 20 mg tablet Take 1 tablet (20 mg total) by mouth 2 (two) times daily. 60 tablet 10/01/2025 fluticasone propionate (FLOVENT HFA) 44 mcg/actuation inhaler [...] as of this encounter ED Notes * Johanny Waller MD - 10/01/2025 5:52 PM EST Chief Complaint: Chief Complaint Patient presents with Abnormal Lab Pt called back to ER for a repeat of a troponin after a lab adjustment post discharge. HPI: Gerda Sears is a 60 y.o. female who presents to the ED with abnormal lab. Week called this patient back due to a instrument error which was identified on her troponins sample that was run a day and a half ago. She had come in with intermittent chest pain and palpitations nonexertional, ongoing for a few days. Her troponin level was initially reported to be 6 and then 7 but on the corrected results the 1 hour is 13 so a delta of 7 . She is not having any shortness of breath she has no prior history of DVT PE, and initially is quite upset over the situation and she is given detailed explanation and a pathology and reassurance by both myself and the charge nurse Karissa. 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 She is under increased stress, this is coming up on the anniversary of her son's and there is a lot of sent it hearings regarding this and she is expressing a lot of emotional distress over that. She also endorses some burning in her chest at times particularly in the mornings or with lying down question if that is reflux. External record(s) reviewed which indicated: None Vitals: 10/01/25 1244 10/01/25 1530 10/01/25 1700 10/01/25 1750 BP: (!) 165/76 139/70 (!) 147/64 124/82 Pulse: (!) 54 (!) 54 Resp: 16 (!) 21 18 Temp: 97.6 ??F (36.4 ??C) TempSrc: Temporal SpO2: 98% 98% 97% Weight: 78.9 kg Physical Exam General appearance: Well developed well nourished, no acute distress no conversational dyspnea Head: normocephalic, atraumatic. Eyes: Anicteric sclerae. Conjunctiva clear. Pupils 3mm and reactive ENT: Moist mucous membranes. No lesions NECK: Neck is supple, no JVD, no cervical lymphadenopathy, no meningismus CHEST: Chest is nontender. Lungs are clear to auscultation. CARDIAC: S1, S2, Regular rate and rhythm. ABDOMEN: Abdomen is soft, nontender, no pulsatile mass, normoactive bowel sounds. No CVA tenderness EXTREMITIES: No clubbing, cyanosis or edema. Bilateral pulses symmetric SKIN: No rashes. NEURO: Awake, alert, appropriate, moves all extremities Medical Decision Making: Here for a repeat troponin, on further discussion, I also get a pro BNP and I do a bedside echo, due to patient concern that her friend who is an healthcare thought she could have a cardiomyopathy. She does not have that history, and I have very low suspicion for that clinically but I did perform abedside ultrasound which per my interpretation showed normal EF and no pericardial effusion and herBNP is not significantly elevated. Her troponin done here today is 7 which is normal range in the 1hour follow up is 6, effectively ruling out ACS. Her EKG did not show any acute ischemia she has been kept on the monitor here initially mildly hypertensive but as she has been resting here her blood pressure normalized without other intervention. I spent a good deal of time again reassuring her, and do think she is safe for discharge she has both primary care and Cardiology for follow up and I suggested we give her a trial of some Pepcid to see if there is a GI component/reflux and she was agreeable for that plan. She will come back with new or worsening symptoms. Clinical Impressions as of 10/01/251751 Palpitations Chest pain, unspecified type Attestation/Critical Care Discussion of Management with other Physicians or Appropriate Source: None My Independent Interpretation of Studies: EKG is interpreted by me, compared to previous shows normal sinus rhythm rate is 53 she does have aprolonged HI interval at 2:45 a.m. similar to previous no acute ischemia arrhythmia or significant change. Admission/Observation was considered: No Procedures Johanny Waller MD 10/01/251755 * Alma Kinsey RN - 10/01/2025 5:10 PM EST 5:10 PM Pt reports continured pain on left side of sternum that is reproducible with palpation. Pt states pain comes and goes in waves and is sometimes bilateral on both sides of sternum and into jaw. * Golden Morillo RN - 10/01/2025 2:12 PM EST 2:12 PM Pt provided with a blanket. documented in this encounter Miscellaneous Notes * ED Procedure Note - Johanny Waller MD - 10/01/2025 12:37 PM EST Associated Order(s): ED Bedside US Gerda Sears is a 60 y.o. female patient. SNOMED CT(R) 1. Palpitations PALPITATIONS 2. Chest pain, unspecified type CHEST PAIN Past Medical History[1] Blood pressure 124/82, pulse (!) 54, temperature 97.6 ??F (36.4 ??C), temperature source Temporal, resp. rate 18, weight 78.9 kg, SpO2 97%. ED Bedside US Date/Time: 10/01/2025 5:56 PM Performed by: Johanny Waller MD Authorized by: Johanny Waller MD Type of ultrasound: echocardiogram Performed by:Attending Indications: chest pain Views: parasternal long axis view, parasternal short axis view, apical 4 chamber view and sub-xiphoid IVC view Effusion: no effusion Ejection fraction: normal 50-65% RV to LV ratio: RV<LV Aortic Root Diameter: Not Assessed IVC qualitative size: Normal sized Interpretation: No acute findings Patient tolerance of procedure: Tolerated well, no immediate complications Johanny Waller MD 10/01/2025 [1] Past Medical History: Diagnosis Date Bipolar 1 disorder (HC Code) (HC CODE) Hyperlipidemia Hypertension Lyme disease 2011 POTS (postural orthostatic tachycardia syndrome) PSVT (paroxysmal supraventricular tachycardia) (HC Code) Status post ablation 05/24/2016, Johanny Roland MD 10/01/25 0237 documented in this encounter Plan of Treatment Not on file documented as of this encounter Procedures Procedure Name Priority Date/Time Associated Diagnosis Comments PROC-ED US ECHO Routine 10/01/2025 5:56 PM EST TROPONIN T HIGH SENSITIVITY, 1 HOUR WITH REFLEX ([facility] LMW YH) STAT - Timed 10/01/2025 4:23 PM EST ED DIAGNOSTIC ULTRASOUND ECHO STAT 10/01/2025 2:55 PM EST EKG Routine 10/01/2025 2:33 PM EST TROPONIN T HIGH SENSITIVITY, 0 HOUR BASELINE WITH REFLEX ([facility] LMW YH) STAT 10/01/2025 1:53 PM EST NT-PROBRAIN NATRIURETIC PEPTIDE STAT 10/01/2025 1:53 PM EST documented in this encounter Results * PROC-ED US ECHO (10/01/2025 5:56 PM EST) Narrative Johanny Waller MD - 10/01/2025 5:56 PM EST Johanny Waller MD 10/01/2025 5:56 PM ED Bedside US Date/Time: 10/01/2025 5:56 PM Performed by: Johanny Waller MD Authorized by: Johanny Waller MD Type of ultrasound: echocardiogram Performed by:Attending Indications: chest pain Views: parasternal long axis view, parasternal short axis view, apical 4 chamber view and sub-xiphoid IVC view Effusion: no effusion Ejection fraction: normal 50-65% RV to LV ratio: RV<LV Aortic Root Diameter: Not Assessed IVC qualitative size: Normal sized Interpretation: No acute findings Patient tolerance of procedure: Tolerated well, no immediate complications us Johanny Waller MD PROCEDURE/MINOR SURGICA L ORDERABLES Final Result * Troponin T High Sensitivity, 1 Hour With Reflex ([facility] LMW Y[facility]) (10/01/2025 4:23 PM EST) [facility] High Sensitivity Troponin T 6 See Comment ng/L 10/01/2025 4:51 PM EST [facility] Comment:High Sensitivity Tro ponin T levels should be interpreted in the context of the [facility] Care Signature pathway. 1 hour Delta from 0 Hour, HS-Troponin T -1 ng/L 10/01/2025 4:51 PM EST [facility] Blood Venipuncture / Unknown 10/01/2025 4:23 PM EST 10/01/2025 4:27 PM EST us Johanny Waller MD LAB BLOOD ORDERAB[place] [address], [facility] [phone] * ED Diagnostic Ultrasound Echo (10/01/2025 2:55 PM EST) Narrative [id number] - 10/01/2025 2:55 PM EST DISCLAIMER This procedure captures images only. There is no report. Johanny Waller MD IMG US ORDERABLES Final Result Performing Organization Address City/[facility] Co de Phone Number [phone] * EKG (10/01/2025 2:33 PM EST) Heart Rate 53 bpm [facility] EKG QRS Interval 93 ms [facility] EKG QT Interval 410 ms [facility] EKG QTC Interval 385 ms [facility] EKG P Ione 114 deg [facility] EKG QRS Ione 66 deg [facility] EKG T Wave Ione 23 deg [facility] EKG P-R Interval 245 msec [facility] EKG SEVERITY Abnormal ECG severity [facility] EKG Comment::Sinus rhythm:Prolon ged HI interval:Abnormal ECG:No significant change from previous:Electronically Signed On 10-02-2025 8:56:55 EST by JAMIE GLORIA MD OTHER / Unknown 10/01/2025 2 :33 PM EST Johanny Waller MD ECG ORDERABLES Edited Result - Final Performing Organization Address [facility] de Phone Number [facility] EKG * (ABNORMAL) NT-proBrain natriuretic peptide (10/01/2025 1:53 PM EST) NT-proBNP 126.0(H) <125.0 pg/mL 10/01/2025 2:33 PM EST [facility] Blood Venipuncture / Unknown 10/01/2025 1:53 PM EST 10/01/2025 1:56 PM EST Johanny Waller MD LAB BLOOD ORDERABLES Fi nal Result Performing Organization Address [facility] [place] [address], [facility] [phone] * Troponin T High Sensitivity, Emergency; 0 hour baseline AND 1 hour with reflex (3 hour) (11/21/38827:53 PM EST) High Sensitivity Troponin T 7 See Comment ng/L 10/01/2025 3:44 PM EST [facility] Comment:High Sensitivity Tro ponin T levels should be interpreted in the context of the [facility] Care Signature pathway. Blood Venipuncture / Unknown 10/01/2025 1:53 PM EST 10/01/2025 1:56 PM EST Johanny Waller MD LAB BLOOD ORDERABLES Fi nal Result [address] [phone] documented in this encounter Visit Diagnoses Diagnosis Palpitations- Primary Chest pain, unspecified type documented in this encounter Care Teams Event Promoter Relationship Specialty Start Date End Date Theresa Guzman MD [address] [place] [phone] PCP - General Family Medicine 05/30/21 documented as of this encounter
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
--- OUTSIDE RECORDS SUMMARY | 2025-10-05 17:56 | XMS_ITS | Clinical Summary ---
Author Organization [facility] Address [address] [place] [address] Care Team Providers Care Brush Cutter Name Role Phone Theresa Guzman MD Primary [...] Plan of Treatment Not on file Insurance [facility] Advance Directives For more information, please contact: [phone] * Full Code (Latest Code Status on File) Date Activated Date Inactivated Comments 05/31/2021 1:14 PM Care Teams Brush Cutter Relationship Specialty Start Date End Date Theresa Guzman MD [address] [place] [id number] PCP - General Family Medicine 05/31/21
--- OUTSIDE RECORDS SUMMARY | 2025-10-05 17:56 | XMS_ITS | Encounter Summary ---
Author Organization [facility] Address [address] [place] [phone] Care Team Providers Care Storage Garage Manager Name Role Phone Theresa Guzman MD Primary Care Provider +1- [phone] Encounter Details Date Type Department Care Team (Latest Contact Info) Description 09/30/2025 Travel Social History Tobacco Use Types Packs/Day Years [...] as of this encounter Plan of Treatment Not on file documented as of this encounter Visit Diagnoses Not on filedocumented in this encounter Care Teams Storage Garage Manager Relationship Specialty Start Date End Date Theresa Guzman MD [address] [place], [place] [phone] PCP - General Family Medicine 05/30/21 documented as of this encounter
--- OUTSIDE RECORDS SUMMARY | 2025-10-05 17:56 | XMS_ITS | Encounter Summary ---
Author Organization [facility] Address [address] [place] [address] Care Team Providers Care Wooden Furniture Polisher Name Role Phone Theresa Guzman MD Primary Care Provider + Encounter Details Date Type Department Care Team (Late st Contact Info) Description 03/09/2025 Scanned Document [facility] [address], [place] [phone] Kraig Stark MD [address] [place] [id number] Social History Tobacco Use Types Packs/Day Years [...] on filedocumented in this encounter Care Teams Wooden Furniture Polisher Relationship Specialty Start Date End Date Theresa Guzman MD [address] [place] [address] PCP - General Family Medicine 09/15/21 documented as of this encounter
--- OUTSIDE RECORDS SUMMARY | 2025-10-05 17:56 | XMS_ITS | Clinical Summary ---
Author Organization [address] Address [address] [place] [phone] Phone Care Team Providers Care Fresh Foods Clerk Name Role Phone Theresa Guzman MD Primary Care Provider +1- [phone] Allergies Active Allergy Reactions Criticality Noted Date [...] by mouth daily. 30 tablet 06/01/2021 Active famotidine (PEPCID) 20 mg tablet Take 1 tablet (20 mg total) by mouth 2 (two) times daily. 60 tablet 10/01/2025 Active Active Problems Problem Noted Date Diagnosed Date Chest pain 05/31/2021 Acute coronary syndrome (HC Code) 05/31/2021 IV infiltrate 05/31/2021 Close exposure to COVID-19 virus 05/31/2021 Encounters Date Type Department Care Team Description 10/01/2025 12:47 PM EST - 10/01/2025 6:07 PM EST Emergency Emergency Department [address] [place] [phone] Johanny Waller MD Palpitations (Primary Dx); Chest pain, unspecified type Discharge Disposition: Home or Self Care 10/01/2025 Travel 09/30/2025 2:02 AM EST - 09/30/2025 9:02 AM EST Hospital Encounter Emergency Department [address] [place] [phone] Rajan Evans DO Wisniowski, Jeff A, MD Palpitation (Primary Dx); Chest pain, unspecified type Discharge Disposition: Home or Self Care 09/30/2025 Travel from Last 3 Months Family History Medical History Relation Name Comments [...] AM EST Sexual Orientation Not on file Last Filed [...] 15.1 oz) 025 12:44 PM EST Height 177.8 cm (5' 10 ) 05/31/2021 2:45 AM EDT Body Mass Index 24.96 05/31/2021 2:45 AM EDT Plan of Treatment Health Maintenance Due Date Last Done Comments HIV screening 02/27/1976 Hepatitis C screening 1981 Tetanus adult (Td q 10,TDAP once) 1983 Cervical cancer screening 02/27/1984 Pneumococcal Vaccine (50+ years) (2 of 2 - PCV) 11/11/1997 11/11/1996 Breast cancer screening 2003 Lipid disorder screening 2003 Colon cancer screening, Colonoscopy 02/27/2008 RSV Immunization (1 - Risk 50-74 years 1-dose series) 2013 Influenza vaccine 06/11/2025 11/11/2011 Covid-19 vaccine series (1 - season) 2025 Diabetes screening 09/30/2028 09/30/2025, 05/31/2021, 05/30/2021 Pneumococcal Vaccine (2 - 49 years) Discontinued 11/11/1996 Shingles vaccine (Shingrix) Completed 06/12, 05/02/2019 Meningococcal B Vaccine Aged Out No l onger eligible based on patient's age to complete this topic Meningococcal Vaccine Aged Out No emani russell eligible based on patient's age to complete this topic Procedures Procedure Name Priority Date/Time Associated Diagnosis Comments PROC-ED US ECHO Routine 10/01/2025 5:56 PM EST TROPONIN T HIGH SENSITIVITY, 1 HOUR WITH REFLEX ( GH LMW YH) STAT - Timed 10/01/2025 4:23 PM EST ED DIAGNOSTIC ULTRASOUND ECHO STAT 10/01/2025 2:55 PM EST EKG Routine 10/01/2025 2:33 PM EST NT-PROBRAIN NATRIURETIC PEPTIDE STAT 10/01/2025 1:53 PM EST TROPONIN T HIGH SENSITIVITY, 0 HOUR BASELINE WITH REFLEX ( GH LMW YH) STAT 10/01/2025 1:53 PM EST US DUPLEX LOWER EXTREMITY VENOUS BILATERAL STAT 09/30/2025 8:24 AM EST EKG Routine 09/30/2025 3:53 AM EST TROPONIN T HIGH SENSITIVITY, 1 HOUR WITH REFLEX ( GH LMW YH) STAT - Timed 09/30/2025 3:28 AM EST XR CHEST PA AND LATERAL STAT 09/30/2025 2:46 AM EST TROPONIN T HIGH SENSITIVITY, 0 HOUR BASELINE WITH REFLEX ( GH LMW YH) STAT 09/30/2025 2:15 AM EST CBC AND DIFFERENTIAL STAT 09/30/2025 2:13 AM EST COMPREHENSIVE METABOLIC PANEL STAT 09/30/2025 2:13 AM EST T4, FREE Routine 09/30/2025 2:13 AM EST CBC WITH AUTO DIFFERENTIAL STAT 09/30/2025 2:13 AM EST COMPREHENSIVE METABOLIC PANEL STAT 09/30/2025 2:13 AM EST D-DIMER, QUANTITATIVE STAT 09/30/2025 2:13 AM EST PROTIME AND INR STAT 09/30/2025 2:13 AM EST TSH W/REFLEX TO FT4 ( GH LMW Q YH) STAT 09/30/2025 2:13 AM EST EKG Routine 09/30/2025 2:09 AM EST from Last 3 Months Results * PROC-ED US ECHO (10/01/2025 5:56 [...] T High Sensitivity, 1 Hour With Reflex ( GH LMW YH) (10/01/2025 4:23 PM EST) Only the most recent of2 resultswithin the time period is included. High Sensitivity Troponin T 6 See Comment ng/L 10/01/2025 4:51 PM EST [facility] Comment:High Sensitivity Tro ponin T levels should be interpreted in the context of the [facility] Care Signature pathway. 1 hour Delta from 0 Hour, HS-Troponin T -1 ng/L 10/01/2025 4:51 PM EST [facility] Blood Venipuncture / Unknown 10/01/2025 4:23 PM EST 10/01/2025 4:27 PM EST us Johanny Waller MD LAB BLOOD ORDERABLES Fi nal Result Performing Organization Address City/[facility]/[place] [address], [facility] [phone] * ED Diagnostic Ultrasound Echo (10/01/2025 2:55 PM EST) Narrative [id number] - 10/01/2025 2:55 PM EST DISCLAIMER This procedure captures images only. There is no report. us Johanny Waller MD IMG US ORDERABLES Final Result Performing Organization Address [facility] Co de Phone Number [phone] * EKG (10/01/2025 2:33 PM EST) Only the most recent of3 resultswithin the time period is included. Heart Rate 53 bpm [facility] EKG QRS Interval 93 ms [facility] EKG QT Interval 410 ms [facility] EKG QTC Interval 385 ms [facility] EKG P [place] 114 deg [facility] EKG QRS [place] 66 deg [facility] EKG T Wave [place] 23 deg [facility] EKG P-R Interval 245 msec [facility] EKG SEVERITY Abnormal ECG severity [facility] EKG Comment::Sinus rhythm:Prolon ged [place] interval:Abnormal ECG:No significant change from previous:Electronically Signed On 10-02-2025 8:56:55 EST by JAMIE GLORIA MD OTHER / Unknown 10/01/2025 2 :33 PM EST Johanny Waller MD ECG ORDERABLES Edited Result - Final Performing Organization Address [facility] EKG * Troponin T High Sensitivity, Emergency; 0 hour baseline AND 1 hour with reflex (3 hour) (:53 PM EST) Only the most recent of2 resultswithin the time period is included. [facility] High Sensitivity Troponin T 7 See Comment ng/L 10/01/2025 3:44 PM [facility] Comment:High Sensitivity Tro ponin T levels should be interpreted in the context of the [facility] Care Signature pathway. Blood Venipuncture / Unknown 10/01/2025 1:53 PM EST 10/01/2025 1:56 PM EST Johanny Waller MD LAB BLOOD ORDERABLES Fi nal Result Performing Organization Address [facility] Number [address] [phone] * (ABNORMAL) NT-proBrain natriuretic peptide (10/01/2025 1:53 PM EST) [facility] NT-proBNP 126.0(H) <125.0 pg/mL 10/01/2025 2:33 PM [facility] Blood Venipuncture / Unknown 10/01/2025 1:53 PM EST 10/01/2025 1:56 PM EST Johanny Waller MD LAB BLOOD ORDERABLES Fi nal Result Performing Organization Address [facility] [place] [address], [facility] [phone] * US Duplex Lower Extremity Venous Bilateral [...] Reported and signed by: Marty Kearns MD Rajan Evans DO [facility] US ORDERABLES Final Result * CXR (09/30/2025 2:46 AM EST) Anatomical Region Laterality Modality Chest Radiographic Peace ging 09/30/2025 8:27 AM EST Impressions 09/30/2025 8:27 AM EST No evidence for an acute cardiopneumonic process. [facility] Radiology Notification System Classification: Routine. Reported and [...] No evidence for an acute cardiopneumonic process. [facility] Radiology Notification System Classification: Routine. Reported and signed by: Dilip Mckee MD Rajan Evans IMG DIAGNOSTIC IMAGING ORDERABL ES Final Result * (ABNORMAL) Comprehensive metabolic panel (09/30/2025 2:13 AM EST) Sodium 139 136 - 145 mmol/L 09/30/2025 2:53 AM [facility] Potassium 3.8 3.5 - 5.1 mmol/L 09/30/2025 2:53 AM [facility] Chloride 107 98 - 107 mmol/L 09/30/2025 2:53 AM [facility] CO2 26 21 - 32 mmol/L 09/30/2025 2:53 AM [facility] Anion Gap 6 5 - 15 mmol/L 09/30/2025 2:53 AM [facility] Glucose 183(H) 65 - 110 mg/dL 09/30/2025 2:53 AM [facility] Comment: Non-fastin-110 mg/dL Fasting (minimum 6 hrs): 65-99 mg/dL BUN 14 7 - 18 mg/dL 09/30/2025 2:53 AM [facility] Creatinine 0.68 0.55 - 1.02 mg/dL 09/30/2025 2:53 AM [facility] Calcium 8.5 8.5 - 10.1 mg/dL 09/30/2025 2:53 AM [facility] Total Protein 6.6 6.4 - 8.2 g/dL 09/30/2025 2:53 AM [facility] Albumin 3.5 3.4 - 5.0 g/dL 09/30/2025 2:53 AM [facility] Globulin 3.1 2.5 - 5.0 g/dL 09/30/2025 2:53 AM [facility] Total Bilirubin 0.2 0.2 - 1.0 mg/dL 09/30/2025 2:53 AM [facility] Comment:Use of this assay is not recommended for patients undergoing treatment with Eltrombopag due to the potential for falsely elevated results. Alkaline Phosphatase 91 45 - 117 U/L 09/30/2025 2:53 AM [facility] Alanine Aminotransferase (ALT) 42 12 - 78 U/L 09/30/2025 2:53 AM [facility] Aspartate Aminotransferase (AST) 16 15 - 37 U/L 09/30/2025 2:53 AM [facility] eGFR (Creatinine) >60 >=60 mL/min/1. 73m2 09/30/2025 2:53 AM [facility] Comment: [facility] utilizes CKD-EPI Creatinine 2020 to report eGFR. Values < 60 mL/min/1.73 m2 may indicate CKD if present for more than three months AND creatinine is at steady state. The eGFR provides a rough estimate of kidney function. For further guidance, please refer to the CKD: Adult [employer] Signature pathway. Creatinine Delta 09/30/20 2:53 AM [facility] Comment:No previous creatini ne <5.00 mg/dL is available within the previous 12 months to calculate a delta creatinine. Blood Venipuncture / Unknown 09/30/2025 2:13 AM EST 09/30/2025 2:18 AM EST us Rajan Evans DO LAB BLOOD ORDERABLES Final Resu lt [address] [address], [facility] [phone] * (ABNORMAL) TSH w/reflex to FT4 (09/30/2025 2:13 AM EST) TSH 4.46(H) 0.36 - 3.74 uIU/mL 09/30/2025 2:53 AM [facility] Comment:As TSH is known to n aturally increase in winter, with age and due to certain non-thyroidal illnesses, please consider retesting adults with mild abnormalities (ie, TSH <10 IU/mL) after 2-3 months prior to initiating therapy. Blood Venipuncture / Unknown 09/30/2025 2:13 AM EST 09/30/2025 2:18 AM EST us Rajan Evans DO LAB BLOOD [place]AB[place] [address], [facility] [phone] * (ABNORMAL) CBC auto differential (09/30/2025 2:13 AM EST) WBC 9.0 4.0 - 11.0 x1000/ L 09/30/2025 2:23 AM [facility] RBC 3.99(L) 4.00 - 6.00 M/ L 09/30/2025 2:23 AM [facility] Hemoglobin 12.2 11.7 - 15.5 g/dL 09/30/2025 2:23 AM [facility] Hematocrit 36.00 35.00 - 45.00 % 09/30/2025 2:23 AM [facility] MCV 90.2 80.0 - 100.0 fL 09/30/2025 2:23 AM [facility] MCH 30.6 27.0 - 33.0 pg 09/30/2025 2:23 AM [facility] MCHC 33.9 31.0 - 36.0 g/dL 09/30/2025 2:23 AM [facility] RDW-CV 12.1 11.0 - 15.0 % 09/30/2025 2:23 AM [facility] Platelets 279 150 - 420 x1000/ L 09/30/2025 2:23 AM [facility] MPV 8.9 8.0 - 12.0 fL 09/30/2025 2:23 AM [facility] Neutrophils 63.2 39.0 - 72.0 % 09/30/2025 2:23 AM [facility] Lymphocytes 27.2 17.0 - 50.0 % 09/30/2025 2:23 AM [facility] Monocytes 7.6 4.0 - 12.0 % 09/30/2025 2:23 AM [facility] Eosinophils 1.5 0.0 - 5.0 % 09/30/2025 2:23 AM [facility] Basophil 0.3 0.0 - 1.4 % 09/30/2025 2:23 AM [facility] Immature Granulocytes 0.2 0.0 - 1.0 % 09/30/2025 2:23 AM [facility] nRBC 0.0 0.0 - 1.0 % 09/30/2025 2:23 AM [facility] Absolute Lymphocyte Count 2.46 0.60 - 3.70 x 1000/ L 09/30/2025 2:23 AM [facility] Monocyte Absolute Count 0.69 0.00 - 1.00 x 1000/ L 09/30/2025 2:23 AM [facility] Eosinophil Absolute Count 0.14 0.00 - 1.00 x 1000/ L 09/30/2025 2:23 AM [facility] Basophil Absolute Count 0.03 0.00 - 1.00 x 1000/ L 09/30/2025 2:23 AM [facility] Absolute Immature Granulocyte Count 0.02 0.00 - 0.30 x 1000/ L 09/30/2025 2:23 AM [facility] Absolute nRBC 0.00 0.00 - 1.00 x 1000/ L 09/30/2025 2:23 AM [facility] ANC (Abs Neutrophil Count) 5.70 2.00 - 7.60 x 1000/ L 09/30/2025 2:23 AM [facility] Blood Venipuncture / Unknown 09/30/2025 2:13 AM EST 09/30/2025 2:18 AM EST us Rajan Evans DO LAB BLOOD ORDERABLES Final Resu lt [address] [phone] * Protime and INR (09/30/2025 2:13 AM EST) Prothrombin Time 10.4 9.0 - 12.0 seconds 09/30/2025 2:47 AM [facility] INR 1.05 0.90 - 1.10 09/30/2025 2:47 AM [facility] Comment: RECOMMENDED INR THERAPEUTIC RANGES: STANDARD INTENSITY......2.0-3.0 HIGH INTENSITY..........2.5-3.5 Blood Venipuncture / Unknown 09/30/2025 2:13 AM EST 09/30/2025 2:18 AM EST Rajan Evans DO LAB BLOOD ORDERABLES Final Resu lt Performing Organization Address [facility] Number [address] [phone] * (ABNORMAL) D-dimer, quantitative (09/30/2025 2:13 AM EST) D-Dimer 0.55(H) <0.50 mg/L FEU 09/30/2025 2:47 AM [facility] Comment: CLINICAL CUT OFF VALUE 0.50 [...] 2:13 AM EST 09/30/2025 2:18 AM EST Rajan Evans DO LAB BLOOD ORDERABLES Final Resu lt Performing Organization Address [facility] Phone Number [address] [phone] * T4, free (09/30/2025 2:13 AM EST) Free T4 1.30 0.76 - 1.46 ng/dL 09/30/2025 3:07 AM EST [facility] Blood Venipuncture / Unknown 09/30/2025 2:13 AM EST 09/30/2025 2:18 AM EST Rajan Evans DO LAB BLOOD [place]AB[place] [address], [facility] [phone] from Last 3 Months Insurance [facility] MEDICARE [facility] MEDICARE [facility] MEDICARE [facility] MEDICARE [facility] MEDICARE [facility] MEDICARE Advance Directives * Full ACLS (Latest Code Status on File) Date Activated Date Inactivated Comments 05/31/2021 2:44 AM 05/31/2021 3:27 PM Question Answer Comments With Whom was the Code Status Discussed? Patient Care Teams Fresh Foods Clerk Relationship Specialty Start Date End Date Theresa Guzman MD [address] [place], [place] [phone] PCP - General Family Medicine 05/30/21
--- OUTSIDE RECORDS SUMMARY | 2025-10-05 17:57 | XMS_ITS | Encounter Summary ---
Author Organization [facility] Address [address] [place] [id number] Care Team Providers Care Granite Cutter Name Role Phone Theresa Guzman MD Primary Care Provider [phone] Encounter Details Date Type Department Care Team (Latest Contact Info) Description 10/01/2025 Travel Social History Tobacco Use Types Packs/Day [...] on filedocumented in this encounter Care Teams Granite Cutter Relationship Specialty Start Date End Date Theresa Guzman MD [address] [place], [place] [id number] PCP - General Family Medicine 05/30/21 documented as of this encounter
--- OUTSIDE RECORDS SUMMARY | 2025-10-05 17:57 | XMS_ITS | Clinical Summary ---
Author Organization [facility] Address [address] [place] [id number] Care Team Providers Care Trampoline Team Coach Name Role Phone Theresa Guzman MD Primary Care Provider + Social History Tobacco Use Types Packs/Day Years Used Date Smoking Tobacco: Never Assessed Comments Unknown Sex and Gender Information Value Date Recorded Sex Assigned at Not on file Legal Sex Female 8:22 AM EDT Gender Identity Not on file Sexual Orientation Not on file Plan of Treatment Health Maintenance Due Date Last Done Comments Hepatitis C Virus Screening 1965 HIV Screening 02/27/1976 DTaP/Tdap/Td Vaccines (1 - Tdap) 1982 Pap Smear (Ages 21-65) 02/27/1984 Mammogram 2003 Colonoscopy 02/27/2008 Pneumococcal Vaccines 50+ (1 of 1 - PCV) 2013 Zoster (Shingles) Vaccine (1 of 2) 2013 Influenza Vaccine 06/11/2025 11/11/2011 COVID-19 Vaccine ( - 2023-2 5 season) 2025 RSV Vaccine 50 years and old er and Patients (1 - 1-dose 75+ series) 2038 Hepatitis B Vaccines Aged Out No long er eligible based on patient's age to complete this topic Insurance [facility] MEDICARE PART A & B Care Teams Trampoline Team Coach Relationship Specialty Start Date End Date Theresa Guzman MD [address] [place] [address] PCP - General Family Medicine 09/15/21
== END 2025-10-05 15:22 | disposition home or self-care (01) ==
LOC: HO.HOP 13:59
PROVIDERS: PCP Family Medicine; Visit Provider Psychiatry & Neurology Psychiatry
DX: F43.10 Post-traumatic stress disorder, unspecified (principal)
CPT/HCPCS: 90833; 99213

== ENCOUNTER 2025-10-05 13:59 | Outpatient (REF) | payer MEDICARE, OTHER, SELFPAY ==
[2025-10-05 15:34] LABS: MANUAL DIFF FLAG NO
[2025-10-05 15:41] LABS: Hematocrit 40.5 % (37.0-47.0); Hemoglobin 13.5 g/dl (12.0-16.0); Imm Gran Abs Auto 0.02 X10*3/uL (0.00-0.03); Imm Gran Pct Auto 0.2 % (0.0-0.4); Lymphocytes Absolute Auto 2.4 X10*3/uL (1.2-4.9); Mean Corpuscular HGB Conc 33.3 g/dl (31.0-35.0); Mean Corpuscular Hemoglobin 30.3 pg (27.0-33.0); Mean Corpuscular Volume 90.8 fL (80.0-98.0); NRBC Abs Auto 0.000 X10*3/uL (0.0-0.012); NRBC Pct Auto 0.0 /100WBC (0.0-0.2); Platelet Count 321 X10*3/uL (160-400); Red Blood Count 4.46 X10*6/uL (4.20-5.50); White Blood Count 8.1 X10*3/uL (4.8-10.8)
[2025-10-05 16:03] LABS: Alanine Aminotransferase 47 U/L (0-31); Albumin Level 4.9 g/dL (3.5-5.0); Alkaline Phosphatase 99 U/L (39-117); Anion Gap 11 (12-20); Aspartate Amino Transferase 30 U/L (5-31); Blood Urea Nitrogen 20 mg/dL (9-16); Calcium 10.1 mg/dL (8.4-10.2); Carbon Dioxide 29 mmol/L (22-29); Chloride 108 mmol/L (96-108); Estimated Glomerular Filt Rate > 60; Potassium 4.1 mmol/L (3.3-5.1); Sodium 144 mmol/L (135-145); Total Protein 7.4 g/dL (6.5-8.0)
== END 2025-10-05 14:00 | disposition home or self-care (01) ==
LOC: HO.LAB 13:59
PROVIDERS: PCP Family Medicine; Visit Provider Psychiatry & Neurology Psychiatry
DX: F43.10 Post-traumatic stress disorder, unspecified (principal); F34.0 Cyclothymic disorder
CPT/HCPCS: 36415; 80053; 80164; 82248; 85025; 99212